=== PATIENT | female | born 1935 | race Caucasian/White ===

== ENCOUNTER → 2018-01-24 09:18 | Outpatient (CLI) | payer MEDICARE, OTHER, SELFPAY ==
--- NOTE | 2018-01-24 09:25 | RAD_ITS ---
PROCEDURE: Fluoroscopic guided right shoulder Injection DATE: January 24, 2018. INDICATION: Female, 82 years old. Chronic right shoulder pain. PHYSICIAN: César Lovelace M.D. MEDICATIONS: 12 mg of betamethasone and 4 cc of 1% lidocaine. 2% Lidocaine administered subcutaneously for local anesthesia. ACCESS SITE: Right shoulder. NEEDLE: 22-gauge spinal needle. FLUOROSCOPY TIME (if supplied): (33 seconds) minutes/seconds FINDINGS: The risks, benefits, and alternatives to the procedure were explained to the patient. The specific risks of bleeding, infection, and neurovascular injury were detailed and accepted. Witnessed informed consent was obtained. A 22-gauge spinal needle was positioned under radiographic fluoroscopic localization. Approximately 2 cc of Isovue-300 instilled for localization purposes. Medication was then injected. The patient tolerated the procedure well without any immediate complications. The patient was placed supine with head elevated and returned to the floor in stable condition. RAD/Inj/Asp Rohit Jt Should/Hip/Knee IMPRESSION: 1. Successful fluoroscopic guided right shoulder injection. Electronically Signed: César Lovelace MD at 10:45 EST Tel [phone], Service support ,
== END ==
PROVIDERS: Visit Provider Specialist
DX: M19.011 Primary osteoarthritis, right shoulder (principal)
CPT/HCPCS: 20610; 77002; Q9965; J0702

== ENCOUNTER → 2018-01-31 08:47 | Outpatient (CLI) | payer MEDICARE, OTHER, SELFPAY ==
--- NOTE | 2018-01-31 08:49 | NM_ITS ---
CLINICAL: 82-year-old female with reported history of colorectal carcinoma with complaint of back pain.. WHOLE BODY 99m Tc MDP RADIONUCLIDE BONE SCINTIGRAPHY COMPARISON: MRI of the thoracic and lumbar spine reports 12/20/2017 FINDINGS: Following the intravenous administration of 25.3 mCi of 99m Tc MDP, whole body bone images reveal: 1. Increased radiopharmaceutical concentration is identified in the sixth-seventh thoracic vertebra posteriorly on the left, eighth-10th thoracic vertebra posteriorly on the left and right, the right sacroiliac joint-right posterior ilium, the left sacral ala, left posterior lateral sixth rib. 2. Enhanced tracer concentration is demonstrated in the right proximal humeral metaphysis. 3. Facilitated uptake is noted in the acromioclavicular and sternoclavicular compartments of both shoulders, lateral glenohumeral compartment of the left shoulder, right midfoot, left hand, the right wrist, second lumbar vertebra posteriorly on the right, fifth lumbar vertebra posteriorly on the left, posterior sacrum. 4. The remaining skeletal structures are scintigraphically unremarkable with normal-appearing renal images and urinary bladder activity identified. An increase in tracer concentration is demonstrated in the right zygomatic bone. The right hip and left knee arthroplasties demonstrate no evidence of significant increased radiopharmaceutical concentration. NM/Bone Scan Whole Body IMPRESSION: 1. The increase in radiopharmaceutical concentration identified in the thoracic spine, right sacroiliac joint, right posterior ilium, left sacral ala, left posterior lateral sixth rib likely represent probable osseous metastatic disease. 2. Increased uptake visualized in the right proximal humeral metaphysis is consistent with trauma-fracture. 3. Degenerative arthritis appears expressed in the bilateral shoulders, right midfoot, left hand, right wrist, second and fifth lumbar vertebra, the posterior sacrum. Electronically Signed: Jose Dominguez DO at 13:16 EST Tel , Service support ,
== END ==
PROVIDERS: Visit Provider Orthopaedic Surgery Orthopaedic Surgery of the Spine
DX: M54.6 Pain in thoracic spine (principal); S22.069A Unspecified fracture of T7-T8 vertebra, initial encounter for closed fracture; M54.9 Dorsalgia, unspecified; G89.29 Other chronic pain; M48.50XA Collapsed vertebra, not elsewhere classified, site unspecified, initial encounter for fracture; Z79.82 Long term (current) use of aspirin; Z79.891 Long term (current) use of opiate analgesic; Z79.899 Other long term (current) drug therapy
CPT/HCPCS: 78306

== ENCOUNTER 2018-02-01 16:16 | Emergency (ER) | payer MEDICARE, OTHER, SELFPAY ==
[2018-02-01 16:19] VITALS: BP 164/80; PULSE 94; RESP 16; TEMP 37.4; O2SAT 91; BMI 31.1
--- NOTE | 2018-02-01 16:35 | ED.DCSUM_ITS ---
- ER Visit Summary Date of Service: 02/01/18 Chief Complaint: [] Back pain History of Present Illness: The patient is a 82 F [] complaining of acute on chronic back pain. Patient reportedly has several compression fractures in her back that she scheduled to have surgery for an Miguel next week. She reports the pain is unbearable at this time. She reports she has tramadol at home for pain but this is not working at this time. She denies any new injuries. She denies numbness or weakness in lower extremities. She denies saddle anesthesia. She reports pain was so bad prior to arrival that she vomited one time. Physical Examination: [] Afebrile, vital signs stable. Elderly female in no acute distress. Cardiovascular exam is regular rate and rhythm. Lungs are clear to auscultation. Abdomen is soft and nontender. Test Results: [] None. Emergency Department Course and Treatment: [] Patient provided intravenous Dilaudid and Phenergan for symptom relief. On serial examination she had improvement of symptoms. Treatment Plan: [] Patient will be discharged to follow-up with primary care physician and provided with a prescription for Percocet. Disposition: [] Discharge, stable. Impression: [] Acute on chronic back pain History of compression fractures This note was generated with [employer] dictation software. It may contain incorrect words, spelling, and punctuation that were not noted in review of the chart prior to signing ED Disposition - Plan for ED Patient: Chief Complaint: Back Referrals: Jon Quiroz [Primary Care Provider] -
[2018-02-01] MEDS: HYDROmorphone 1 MG/ML Syringe IV (16:36)
--- NOTE | 2018-02-01 17:55 | ED.DEP ---
ED Disposition - Plan for ED Patient: Disposition: Home or Assisted Living Chief Complaint: Back Instructions: Back Fracture (Compression Fracture) Prescriptions: Oxycodone HCl/Acetaminophen [Percocet 5/325] 1 tab PO Q4H PRN PRN #22 tab PRN Reason: Pain Referrals: Jon Quiroz [Primary Care Provider] -
[2018-02-01 18:17] VITALS: BP 121/59; PULSE 77; RESP 16; O2SAT 98
[2018-02-01 19:06] VITALS: BP 122/46; PULSE 87; RESP 16; O2SAT 94
== END 2018-02-01 19:07 | disposition home or self-care (01) ==
PROVIDERS: Emergency Provider Emergency Medicine
DX: M54.9 Dorsalgia, unspecified (principal); G89.29 Other chronic pain; M48.50XA Collapsed vertebra, not elsewhere classified, site unspecified, initial encounter for fracture
CPT/HCPCS: 96374; 96375; 99285; A4216

== ENCOUNTER 2018-02-02 16:35 | Inpatient (IN) | payer MEDICARE, OTHER, SELFPAY ==
[2018-02-02] VITALS (10 sets, daily range): BP systolic 131–178; BP diastolic 38–72; PULSE 74–93; RESP 14–18; TEMP 37.2–37.7; O2SAT 92–97; BMI 27.0; BMI 27.1
--- NOTE | 2018-02-02 16:48 | ED.DCSUM_ITS ---
- ER Visit Summary Date of Service: 02/02/18 Chief Complaint: Back pain History of Present Illness: The patient is a 82 F he returns today with back pain. She was seen here yesterday and was given Dilaudid and Phenergan and was discharged with Percocet. She returns because her pain is not controlled at home. She has had 2 months of this back pain ever since the compression fracture was diagnosed in December. She has had MRIs and bone scans. She is scheduled on Saturday for interventional radiology to inject cemented into her compression fracture area. Denies any numbness or tingling in her legs. Denies any weakness. Physical Examination: Vital signs are reviewed. HEENT exam unremarkable. Heart is regular rate and rhythm. Lungs are clear to auscultation. Abdomen soft nontender. Back is tender diffusely in the thoracic area. Neurologic exam normal Test Results: Laboratory studies unremarkable except for a white blood cell count of 13.1 and creatinine 1.1. Emergency Department Course and Treatment: Patient was treated with IV Dilaudid and fentanyl. Treatment Plan: I reviewed the patient's bone scan from a couple of days ago. There is concern for multiple metastases in the ribs and thoracic spine area. Patient denies any active cancer at this time. Discussed the case with the hospitalist for admission. She requested Solu-Medrol be given Disposition: Admission Impression: Acute on chronic back pain, thoracic compression fracture This note was generated with [employer] dictation software. It may contain incorrect words, spelling, and punctuation that were not noted in review of the chart prior to signing ED Disposition - Plan for ED Patient: Chief Complaint: Back Referrals: Jon Quiroz [Primary Care Provider] -
[2018-02-02] MEDS: HYDROmorphone 1 MG/ML Syringe IV (17:02)
[2018-02-02 17:22] LABS: Absolute Lymphocyte Count 0.96 X10^3/ul (0.83-4.51); Absolute Neutrophil Count 10.9 X10^3/uL (2.0-7.7); Basophil# 0.01 X10^3/uL; Basophil% 0.1 % (0-1); Eosinophil# 0.01 X10^3/uL; Eosinophils% 0.1 % (0-5); Hematocrit 36.3 % (37-47); Hemoglobin 11.9 g/dl (12.0-15.0); Lymphocyte # 0.96 X10^3/ul (4.0); Lymphocyte % 7.3 % (19-41); Mean Corp Hgb Conc 32.8 g/gl (32-36); Mean Corpuscular Volume 97.6 fL (81-99); Mean Platelet Vol. 9.4 fl (6.2-12.0); Monocyte# 1.21 X10^3/uL; Monocyte% 9.3 % (0-10); Neutrophil # 10.85 X10^3/uL (2.7-7.7); Platelet Count 133 K/mm3 (150-450); RBC Distribution Width CV 14.2 % (11.6-14.6); RBC Distribution Width SD 51.1 fl (35.1-43.9); Red Blood Count 3.72 M/mm3 (4.2-5.4); White Blood Count 13.1 K/mm3 (4.4-11.0)
[2018-02-02 17:25] LABS: POSITIVE COUNT NO; POSITIVE DIFFERENTIAL NO; POSITIVE MORPHOLOGY NO
[2018-02-02 17:43] LABS: Anion Gap 11 (5-15); BUN 20 mg/dL (7-18); BUN/Creat Ratio 18.2 RATIO (10-20); Calcium,Total 8.4 mg/dL (8.5-10.1); Chloride 102 mmol/L (98-107); EST Glomerular Filtration Rate 51 mL/min (>60); Est Glom Filt Rate - Afr Amer 61 mL/min (>60); Estimated Creatinine Clearance 37.83 ml/min; Glucose 81 mg/dL (74-106); Sodium Level 138 mmol/L (136-145)
[2018-02-02] MEDS: MethylPREDNISolone 125 MG/2 ML Vial IV (18:24)
[2018-02-02] MEDS: fentaNYL 100 MCG/2 ML Ampul 50 MCG IV (18:24)
[2018-02-02] MEDS: fentaNYL 100 MCG/2 ML Ampul 25 MCG IV (18:58)
--- NOTE | 2018-02-02 19:48 | PCM.HP.STD ---
Problem List (1) Intractable back pain Status: Acute (2) Pathologic fracture of vertebra Status: Suspected Qualifiers: Pathology associated with fracture: unspecified disease (3) Dehydration Status: Acute (4) Abnormal bone scan of thoracic spine Status: Acute (5) Thrombocytopenia Status: Acute (6) Contusion of right hip and thigh Status: Resolved Qualifiers: (7) Fracture of surgical neck of right humerus Status: Chronic Qualifiers: (8) MRSA bacteremia Status: Resolved (9) MSSA (methicillin susceptible Staphylococcus aureus) infection Status: Resolved (10) Shoulder pain, left Status: Chronic (11) Spinal stenosis Status: Chronic (12) Staphylococcus aureus bacteremia Status: Resolved Comment: etiology unknown (13) Syncope Status: Resolved (14) generalized debility Status: Acute (15) AV block, 1st degree Status: Chronic (16) Benign essential HTN Status: Chronic (17) Chronic pain Status: Chronic (18) Coronary artery disease Status: Chronic Qualifiers: (19) GERD (gastroesophageal reflux disease) Status: Chronic (20) HLD (hyperlipidemia) Status: Chronic Qualifiers: (21) Hypertension Status: Chronic Qualifiers: (22) Hypothyroidism Status: Chronic Qualifiers: (23) Low back pain Status: Chronic Qualifiers: (24) Lumbar spinal stenosis Status: Chronic (25) Osteoarthritis Status: Chronic (26) S/P total knee replacement Status: Chronic Comment: 01/09/16, [facility] left, Dr Poole History of Present Illness Date of Admission: 02/02/18 Chief Complaint: intractable mid back pain The patient is a 82 year old F with a past medical history of lumbar canal stenosis, foraminal stenosis, osteoarthritis, coronary artery disease with history of PTCA/TAMMIE, GERD, hypothyroidism, hypertension, hyperlipidemia, chronic pain syndrome, colon cancer with partial colon resection, osteoporosis and recent acute T8 compression fx in December 2017 who presented to the ED at [facility] on 02/02/18 c/o intractable pain in the mid back. She recently had an epidural in the low back by Dr. Edmond and she denied any pain in her legs and also denied numbness or weakness. She is scheduled for a Kyphoplasty with Dr. Klein this coming Saturday. He ordered a bone scan which was done on 01/31/18 and it showed increased radiopharmaceutical concentration in the thoracic spine, right sacroiliac joint, right posterior ilium, left sacral ala, left posterior lateral sixth rib which likely represent osseous metastatic disease. There was increased uptake in the right proximal humerus consistent with recent fracture. There was increased uptake in the bilateral shoulders, right midfoot, left hand, right wrist second and fifth lumbar vertebrae and the posterior sacrum likely secondary to degenerative arthritis. Was seen in the emergency room on 02/01/2018 and treated with Dilaudid and Phenergan with good improvement in her symptoms. She was sent home with prescription for Percocet. The pain is not relieved with Percocet and she has severe pain with any movement. She was given 1 mg of Dilaudid in the ER and it helped minimally. She has since received Fentanyl 50 mcg followed quickly by 25 mcg and she is a little more comfortable. She has a temp in the ER of 99.8 and the WBC count is 13.1 with 83% neutrophils. The hemoglobin is 11.9 and the platelet count is mildly decreased at 133,000. There is no obvious source of infection. She has had MSSA bacteremia in the past and the source was never identified. Will send 2 blood cultures but defer antibiotics for now. she is being admitted to the hospital with intractable back pain and will be started on a Fentanyl [employer]RI[employer]ION CENTER ASSOCIATE. Past Medical History Past Medical History (Chronic Problems): Chronic Problems Fracture of surgical neck of right humerus (Chronic) Benign essential HTN (Chronic) HLD (hyperlipidemia) (Chronic) Hypothyroidism (Chronic) S/P total knee replacement (Chronic) 01/09/16, [facility] left, Dr Poole AV block, 1st degree (Chronic) Shoulder pain, left (Chronic) Chronic pain (Chronic) Spinal stenosis (Chronic) Osteoarthritis (Chronic) Coronary artery disease (Chronic) Low back pain (Chronic) Hypertension (Chronic) GERD (gastroesophageal reflux disease) (Chronic) Lumbar spinal stenosis (Chronic) Allergies No Known Allergies Allergy (Verified 02/01/18 16:18) Home Medications: Ambulatory Orders Medication Instructions Recorded Atorvastatin Calcium [Lipitor] 40 mg PO QHS 12/19/13 Cholecalciferol (Vitamin D3) 5,000 units PO DAILY 12/19/13 [Vitamin D3] Isosorbide Mononitrate [Imdur] 30 mg PO DAILY 12/19/13 Levothyroxine [Synthroid] 75 mcg PO DAILY 12/19/13 Metoprolol Tartrate [Lopressor 25 mg PO BID #60 tablet 01/20/16 (beta rafael)] Aspirin 81 mg PO DAILY 03/07/17 Oxycodone HCl/Acetaminophen 1 tab PO Q4H PRN PRN #22 tab 02/01/18 [Percocet 5/325] TraMADol [Ultram (G)] 50 mg PO Q6H PRN PRN 02/01/18 Calcium Carbonate [Calcium] 1,200 mg PO DAILY 02/02/18 Surgical History: cholecystectomy, colectomy - Colon cancer., hysterectomy, total hip arthroplasty - Right., total knee arthroplasty - Left., - - Cardiac stent. Psychiatric History: No pertinent psych hx DIRECT MAIL CLERK History: No pertinent DIRECT MAIL CLERK history, - - she had a ANGÉLICA/BSO for DUB in the past Lives: Alone Smoking Status: Never smoker Tobacco Use: Non-smoker Alcohol: None Drugs: None - *Family History Maternal History Items: No pertinent history Paternal History Items: No pertinent history, - Review of Systems Constitutional: Reports: Anorexia, - - insomnia due to severe pain. Denies: Chills, Fever HEENT: Denies: Difficulty Hearing, Difficulty Swallowing, Head Aches, Sinus Congestion, Sinus Drainage, Sore Throat Cardiovascular: Denies: Chest Pain, Edema, Light Headedness, Orthopnea, Palpitations, Syncope Respiratory: Denies: Cough, Shortness of breath at rest, Sputum production Gastrointestinal: Reports: Nausea. Denies: Abdominal Pain, Vomiting Genitourinary: Denies: Dysuria Gynecological: Denies: Vaginal discharge Musculoskeletal: Reports: Back Pain. Denies: Joint swelling, Leg Pain Skin: Denies: Jaundice, Rash, Wounds Neurological: Denies: Slurred speech, Confusion, Focal weakness, Numbness, Tingling, Seizures Psychiatric: Denies: Anxiety, Depression, Homicidal Ideations, Suicidal Ideations Endocrine: Denies: Change in Body Habitus, Heat/ Cold Intolerance, Hx of Irradiation Hematologic/ Lymphatic: Denies: Hx of blood clot VTE Information - Inpt Only VTE Present on Admission: No VTE Mechan Device Prophylaxis: SCD's, Knee High WIL Hose VTE Pharm Prophylaxis ordered?: No Reason prophylaxis not ordered:: Refusal of Tx by Patient - held in anticipation of vertebral bone bx with possible kyphoplasty 02/03 Patient Problems: Active and Suspected Problems Intractable back pain (Acute) Pathologic fracture of vertebra (Suspected) Dehydration (Acute) Abnormal bone scan of thoracic spine (Acute) Thrombocytopenia (Acute) - Physical Exam General: Alert, Oriented x3, Cooperative, - - she looks to be in severe pain and it is exacerbated with any movement HEENT: Atraumatic, PERRLA, EOMI, Normocephalic Oral: No Gingival or Mucosal Lesions/ Ulcerations, Dry Mucosa Neck: No JVD, No Nodes, Trachea Midline Lungs: Clear to auscultation Cardiovascular: Regular rate, Regular Rhythm, Normal S1, Normal S2, Murmur - at the apex, No Gallop Abdomen: Bowel Sounds Present, Soft, Non Tender, Non-Distended Extremities: No clubbing, No cyanosis, No edema, No Calf Tenderness Skin: No rashes, No breakdown Neurological: Cranial nerves II-XII grossly intact, - - patellar reflexes are normal and I could not elicit any achilles reflexes. Psych/Mental Status: Appropriate Vital Signs Temp Pulse Resp BP Pulse Ox 99.8 F H 91 18 178/62 H 96 02/02/18 16:36 02/02/18 18:38 02/02/18 18:38 02/02/18 18:38 02/02/18 18:38 Oxygen Delivery Method Room Air Weight: 134 lb Body Mass Index (BMI) 27.0 Laboratory Tests Past 24 Hrs 02/02/18 02/02/18 17:06 17:06 WBC 13.1 H RBC 3.72 L Hgb 11.9 L Hct 36.3 L MCV 97.6 MCH 32.0 MCHC 32.8 RDW 14.2 RDW Differential 51.1 H Plt Count 133 L MPV 9.4 Immature Gran % (Auto) 0.200 Neut % (Auto) 83.0 H Lymph % (Auto) 7.3 L [place] % (Auto) 9.3 Eos % (Auto) 0.1 Baso % (Auto) 0.1 Absolute Neuts (auto) 10.9 H Absolute Lymphs (auto) 0.96 Total Counted Not Reportable Sodium 138 Potassium 4.0 Chloride 102 Carbon Dioxide 25.0 Anion Gap 11 BUN 20 H Creatinine 1.10 H Estim Creat Clear Calc 37.83 Est GFR (MDRD) Af Amer 61 Est GFR (MDRD) Non-Af 51 L BUN/Creatinine Ratio 18.2 Glucose 81 Calcium 8.4 L Assessment/Plan Active and Suspected Problems Intractable back pain (Acute) Pathologic fracture of vertebra (Suspected) Dehydration (Acute) Abnormal bone scan of thoracic spine (Acute) Thrombocytopenia (Acute) Impressions 1. Intractable back pain due to T8 vertebral compression fracture which I suspect is due to metastatic cancer. The recent bone scan on 01/31 is consistent with multiple areas of increased radiopharmaceutical uptake which appear to be metastatic disease 2. Vertebral compression fx at T8 3. Osteoporosis not on a bisphosphonate or Miacalcin or Evista. She is on Vitamin D and calcium 4. Lumbar central canal stenosis and multilevel foraminal stenosis in the thoracic and the lumbar spine 5. Chronic pain S. - follow with Dr. Edmond 6. OA 7. CAD with a hx of PTCA and stent in the past 8. HTN 9. GERD 10. thrombocytopenia - new, etiology? 11. low grade fever with no obvious infection 12. First-degree AV block 13. Hyperlipidemia 14. Hypothyroidism 15. dehydration Admit to [place] consult Dr. Seay for a bone bx of T8 Geena Swenson requested repeat of MRI of the thoracic and Lumbar spines in the AM Consult Dr. Edmond for pain management Start a Fentanyl [employer]RI[employer] C[employer] ASSOCIATE LR at 100 cc/hr to hydrate Liver panel, PT, PTT, ESR and CRP, mag and phos now NPO after [place] TEDS and SCD's for DVT prophylaxis....hold Lovenox for anticipated surgical procedure tomorrow blood cultures now Discussed the results of the bone scan with her dtr Joelle but not with the pt at her dtr's request. Code Visit Inpatient E&M: 16599 Init Hosp L3
--- NOTE | 2018-02-02 19:58 | HP.PCM_ITS ---
Problem List (1) Intractable back pain Status: Acute (2) Pathologic fracture of vertebra Status: Suspected Qualifiers: Pathology associated with fracture: unspecified disease (3) Dehydration Status: Acute (4) Abnormal bone scan of thoracic spine Status: Acute (5) Thrombocytopenia Status: Acute (6) Contusion of right hip and thigh Status: Resolved Qualifiers: (7) Fracture of surgical neck of right humerus Status: Chronic Qualifiers: (8) MRSA bacteremia Status: Resolved (9) MSSA (methicillin susceptible Staphylococcus aureus) infection Status: Resolved (10) Shoulder pain, left Status: Chronic (11) Spinal stenosis Status: Chronic (12) Staphylococcus aureus bacteremia Status: Resolved Comment: etiology unknown (13) Syncope Status: Resolved (14) generalized debility Status: Acute (15) AV block, 1st degree Status: Chronic (16) Benign essential HTN Status: Chronic (17) Chronic pain Status: Chronic (18) Coronary artery disease Status: Chronic Qualifiers: (19) GERD (gastroesophageal reflux disease) Status: Chronic (20) HLD (hyperlipidemia) Status: Chronic Qualifiers: (21) Hypertension Status: Chronic Qualifiers: (22) Hypothyroidism Status: Chronic Qualifiers: (23) Low back pain Status: Chronic Qualifiers: (24) Lumbar spinal stenosis Status: Chronic (25) Osteoarthritis Status: Chronic (26) S/P total knee replacement Status: Chronic Comment: 01/09/16, [facility] left, Dr Poole History of Present Illness Date of Admission: 02/02/18 Chief Complaint: intractable mid back pain The patient is a 82 year old F with a past medical history of lumbar canal stenosis, foraminal stenosis, osteoarthritis, coronary artery disease with history of PTCA/TAMMIE, GERD, hypothyroidism, hypertension, hyperlipidemia, chronic pain syndrome, colon cancer with partial colon resection, osteoporosis and recent acute T8 compression fx in December 2017 who presented to the ED at [facility] on 02/02/18 c/o intractable pain in the mid back. She recently had an epidural in the low back by Dr. Edmond and she denied any pain in her legs and also denied numbness or weakness. She is scheduled for a Kyphoplasty with Dr. Klein this coming Saturday. He ordered a bone scan which was done on 01/31/18 and it showed increased radiopharmaceutical concentration in the thoracic spine , right sacroiliac joint, right posterior ilium, left sacral ala, left posterior lateral sixth rib which likely represent osseous metastatic disease. There was increased uptake in the right proximal humerus consistent with recent fracture. There was increased uptake in the bilateral shoulders, right midfoot , left hand, right wrist second and fifth lumbar vertebrae and the posterior sacrum likely secondary to degenerative arthritis. Was seen in the emergency room on 02/01/2018 and treated with Dilaudid and Phenergan with good improvement in her symptoms. She was sent home with prescription for Percocet. The pain is not relieved with Percocet and she has severe pain with any movement. She was given 1 mg of Dilaudid in the ER and it helped minimally. She has since received Fentanyl 50 mcg followed quickly by 25 mcg and she is a little more comfortable. She has a temp in the ER of 99.8 and the WBC count is 13.1 with 83 % neutrophils. The hemoglobin is 11.9 and the platelet count is mildly decreased at 133,000. There is no obvious source of infection. She has had MSSA bacteremia in the past and the source was never identified. Will send 2 blood cultures but defer antibiotics for now. she is being admitted to the hospital with intractable back pain and will be started on a Fentanyl GREEN LUMBER GRADER. Past Medical History Past Medical History (Chronic Problems): Chronic Problems Fracture of surgical neck of right humerus (Chronic) Benign essential HTN (Chronic) HLD (hyperlipidemia) (Chronic) Hypothyroidism (Chronic) S/P total knee replacement (Chronic) 01/09/16, [facility] left, Dr Poole AV block, 1st degree (Chronic) Shoulder pain, left (Chronic) Chronic pain (Chronic) Spinal stenosis (Chronic) Osteoarthritis (Chronic) Coronary artery disease (Chronic) Low back pain (Chronic) Hypertension (Chronic) GERD (gastroesophageal reflux disease) (Chronic) Lumbar spinal stenosis (Chronic) Allergies No Known Allergies Allergy (Verified 02/01/18 16:18) Home Medications: Ambulatory Orders Medication Instructions Recorded Atorvastatin Calcium [Lipitor] 40 mg PO QHS 12/19/13 Cholecalciferol (Vitamin D3) 5,000 units PO DAILY 12/19/13 [Vitamin D3] Isosorbide Mononitrate [Imdur] 30 mg PO DAILY 12/19/13 Levothyroxine [Synthroid] 75 mcg PO DAILY 12/19/13 Metoprolol Tartrate [Lopressor 25 mg PO BID #60 tablet 01/20/16 (beta rafael)] Aspirin 81 mg PO DAILY 03/07/17 Oxycodone HCl/Acetaminophen 1 tab PO Q4H PRN PRN #22 tab 02/01/18 [Percocet 5/325] TraMADol [Ultram (G)] 50 mg PO Q6H PRN PRN 02/01/18 Calcium Carbonate [Calcium] 1,200 mg PO DAILY 02/02/18 Surgical History: cholecystectomy, colectomy - Colon cancer., hysterectomy, total hip arthroplasty - Right., total knee arthroplasty - Left., - - Cardiac stent. Psychiatric History: No pertinent psych hx MACHINE OR MACHINERY MECHANIC History: No pertinent MACHINE OR MACHINERY MECHANIC history, - - she had a ANGÉLICA/BSO for DUB in the past Lives: Alone Smoking Status: Never smoker Tobacco Use: Non-smoker Alcohol: None Drugs: None - *Family History Maternal History Items: No pertinent history Paternal History Items: No pertinent history, - Review of Systems Constitutional: Reports: Anorexia, - - insomnia due to severe pain. Denies: Chills, Fever HEENT: Denies: Difficulty Hearing, Difficulty Swallowing, Head Aches, Sinus Congestion, Sinus Drainage, Sore Throat Cardiovascular: Denies: Chest Pain, Edema, Light Headedness, Orthopnea, Palpitations, Syncope Respiratory: Denies: Cough, Shortness of breath at rest, Sputum production Gastrointestinal: Reports: Nausea. Denies: Abdominal Pain, Vomiting Genitourinary: Denies: Dysuria Gynecological: Denies: Vaginal discharge Musculoskeletal: Reports: Back Pain. Denies: Joint swelling, Leg Pain Skin: Denies: Jaundice, Rash, Wounds Neurological: Denies: Slurred speech, Confusion, Focal weakness, Numbness, Tingling, Seizures Psychiatric: Denies: Anxiety, Depression, Homicidal Ideations, Suicidal Ideations Endocrine: Denies: Change in Body Habitus, Heat/ Cold Intolerance, Hx of Irradiation Hematologic/ Lymphatic: Denies: Hx of blood clot VTE Information - Inpt Only VTE Present on Admission: No VTE Mechan Device Prophylaxis: SCD's, Knee High WIL Hose VTE Pharm Prophylaxis ordered?: No Reason prophylaxis not ordered:: Refusal of Tx by Patient - held in anticipation of vertebral bone bx with possible kyphoplasty 02/03 Patient Problems: Active and Suspected Problems Intractable back pain (Acute) Pathologic fracture of vertebra (Suspected) Dehydration (Acute) Abnormal bone scan of thoracic spine (Acute) Thrombocytopenia (Acute) - Physical Exam General: Alert, Oriented x3, Cooperative, - - she looks to be in severe pain and it is exacerbated with any movement HEENT: Atraumatic, PERRLA, EOMI, Normocephalic Oral: No Gingival or Mucosal Lesions/ Ulcerations, Dry Mucosa Neck: No JVD, No Nodes, Trachea Midline Lungs: Clear to auscultation Cardiovascular: Regular rate, Regular Rhythm, Normal S1, Normal S2, Murmur - at the apex, No Gallop Abdomen: Bowel Sounds Present, Soft, Non Tender, Non-Distended Extremities: No clubbing, No cyanosis, No edema, No Calf Tenderness Skin: No rashes, No breakdown Neurological: Cranial nerves II-XII grossly intact, - - patellar reflexes are normal and I could not elicit any achilles reflexes. Psych/Mental Status: Appropriate Vital Signs Temp Pulse Resp BP Pulse Ox 99.8 F H 91 18 178/62 H 96 02/02/18 16:36 02/02/18 18:38 02/02/18 18:38 02/02/18 18:38 02/02/18 18:38 Oxygen Delivery Method Room Air Weight: 134 lb Body Mass Index (BMI) 27.0 Laboratory Tests Past 24 Hrs 02/02/18 02/02/18 17:06 17:06 WBC 13.1 H RBC 3.72 L Hgb 11.9 L Hct 36.3 L MCV 97.6 MCH 32.0 MCHC 32.8 RDW 14.2 RDW Differential 51.1 H Plt Count 133 L MPV 9.4 Immature Gran % (Auto) 0.200 Neut % (Auto) 83.0 H Lymph % (Auto) 7.3 L [place] % (Auto) 9.3 Eos % (Auto) 0.1 Baso % (Auto) 0.1 Absolute Neuts (auto) 10.9 H Absolute Lymphs (auto) 0.96 Total Counted Not Reportable Sodium 138 Potassium 4.0 Chloride 102 Carbon Dioxide 25.0 Anion Gap 11 BUN 20 H Creatinine 1.10 H Estim Creat Clear Calc 37.83 Est GFR (MDRD) Af Amer 61 Est GFR (MDRD) Non-Af 51 L BUN/Creatinine Ratio 18.2 Glucose 81 Calcium 8.4 L Assessment/Plan Active and Suspected Problems Intractable back pain (Acute) Pathologic fracture of vertebra (Suspected) Dehydration (Acute) Abnormal bone scan of thoracic spine (Acute) Thrombocytopenia (Acute) Impressions 1. Intractable back pain due to T8 vertebral compression fracture which I suspect is due to metastatic cancer. The recent bone scan on 01/31 is consistent with multiple areas of increased radiopharmaceutical uptake which appear to be metastatic disease 2. Vertebral compression fx at T8 3. Osteoporosis not on a bisphosphonate or Miacalcin or Evista. She is on Vitamin D and calcium 4. Lumbar central canal stenosis and multilevel foraminal stenosis in the thoracic and the lumbar spine 5. Chronic pain S. - follow with Dr. Edmond 6. OA 7. CAD with a hx of PTCA and stent in the past 8. HTN 9. GERD 10. thrombocytopenia - new, etiology? 11. low grade fever with no obvious infection 12. First-degree AV block 13. Hyperlipidemia 14. Hypothyroidism 15. dehydration Admit to [place] consult Dr. Seay for a bone bx of T8 Geena Swenson requested repeat of MRI of the thoracic and Lumbar spines in the AM Consult Dr. Edmond for pain management Start a Fentanyl GREEN LUMBER GRADER LR at 100 cc/hr to hydrate Liver panel, PT, PTT, ESR and CRP, mag and phos now NPO after [place] TEDS and SCD's for DVT prophylaxis....hold Lovenox for anticipated surgical procedure tomorrow blood cultures now Discussed the results of the bone scan with her dtr Joelle but not with the pt at her dtr's request. Code Visit Inpatient E&M: 37525 Init Hosp L3
[2018-02-02 20:42] LABS: Erythrocyte Sedimentation Rate 48 mm/hr (0-30)
[2018-02-02 20:53] LABS: AST(SGOT) 41 U/L (15-37); Alanine Aminotransfer ALT/SGPT 34 U/L (13-56); Albumin, Serum 2.6 g/dL (3.2-5.0); Alkaline Phosphatase 140 U/L (45-117); Bilirubin, Direct 0.34 mg/dL (0.00-0.30); Globulin 3.8 g/dL (2.2-4.2); Magnesium 1.9 mg/dL (1.6-2.6); Protein, Total 6.4 g/dL (6.4-8.2)
[2018-02-02 21:01] LABS: International Normalized Ratio 1.1; Prothrombin Time (Protime)PT. 13.7 SECONDS (11.7-14.9)
[2018-02-02 21:02] LABS: Partial Thromboplast Time 39.1 Seconds (24.1-36.2)
[2018-02-02] MEDS: Lactated Ringers 1,000 ML 100 ML IV (21:25)
[2018-02-02] MEDS: 0.9% NaCl Peripheral Flush Adult/Peds IV (21:32)
[2018-02-02] MEDS: Atorvastatin Calcium 40 MG Tablet PO (21:54)
[2018-02-02] MEDS: Metoprolol Tartrate 25 MG Tablet PO (21:54)
[2018-02-03] VITALS (19 sets, daily range): BP systolic 107–160; BP diastolic 44–77; PULSE 63–90; RESP 16; TEMP 36.5–37.4; O2SAT 2–99
[2018-02-03 00:02] LABS: Bacteria 0 SEEN /hpf (None Seen); Mucous, Urine 0 SEEN /hpf (<or=2+)
[2018-02-03 00:20] LABS: Color, Urine Yellow (Yellow); Glucose, Dipstick Normal (Normal); Leukocyte Esterase-Dipstick Negative /ul (Negative); Nitrite-Dipstick Negative (Negative); Occult Blood-Urine 150 /ul (Negative); Protein-Dipstick 100 mg/dl (Negative); Specific Gravity, Urine 1.025 (1.002-1.030); Urine Bilirubin Dipstick Negative (Negative); Urine Clarity Sl. Cloudy (Clear); Urine Urobilinogen 1 mg/dl (Normal)
[2018-02-03 00:27] LABS: Amorphous Sediment 3+; Coarse Granular Cast 5-10 SEEN /lpf (0-5 /lpf); Red Blood Cells-Urine 0-5 SEEN /hpf (0-5); Squamous Epithelial Cells - UA 5-10 SEEN /hpf (5-10); White Blood Cells 0-5 SEEN /hpf (0-5)
[2018-02-03 00:28] LABS: Ketone-Dipstick 150 mg/dl (Negative)
--- NOTE | 2018-02-03 03:41 | ECHOD_ITS ---
Reason For Study: HTN Procedure This was a 2D Doppler, Color Flow transthoracic echocardiogram. Exam performed portable in patient room. Left Ventricle Normal size and thickness. The estimated ejection fraction is 65 %. Stage 1 diastolic dysfunction. No regional wall motion abnormalities noted. Right Ventricle Normal size and thickness. Normal systolic function. Atria Normal left atrium. Normal right atrium. Normal atrial septum. Mitral Valve The mitral valve is structurally normal. No prolapse or stenosis seen. Trivial mitral valve insufficiency. Tricuspid Valve Normal tricuspid valve. Trivial tricuspid valve insufficiency. Right ventricular systolic pressure estimated to be 37 mmHg. Mild pulmonary hypertension. Aortic Valve Trisinus/trileaflet aortic valve. Mild diffuse aortic valve thickening. Pulmonic Valve Normal pulmonic valve. Great Vessels Normal aortic root. Normal arch. Normal inferior vena cava. Inferior vena cava collapse with sniff. Pericardium/Pleural No pericardial effusion. MMode/2D Measurements & Calculations LVIDd: 3.8 cm IVSd: 0.83 cm Ao root diam: 3.7 cm LVIDs: 2.8 cm LVPWd: 0.82 cm LA dimension: 3.1 cm RVDd: 3.6 cm FS: 24.9 % LAV(MOD-bp): 33.7 ml EDV(MOD-sp4): 86.2 ml EDV(MOD-sp2): 73.6 ml LAV(MOD-bp) Indexed: 21.8 ml/m2 ESV(MOD-sp4): 38.5 ml EF(MOD-sp2): 46.9 % LAV(MOD-sp2): 31.9 ml EF(MOD-sp4): 55.3 % LAV(MOD-sp4): 34.8 ml SV(MOD-sp4): 47.7 ml SV(MOD-sp2): 34.6 ml LA A4 area: 13.9 cm2 RA A4 area: 10.4 cm2 Doppler Measurements & Calculations MV E max annabelle: 74.8 cm/sec Ao V2 max: 105.5 cm/sec LV V1 max: 94.6 cm/sec MV A max annabelle: 96.3 cm/sec Ao max P.5 mmHg LV V1 max P.6 mmHg MV E/A: 0.78 TR max annabelle: 276.2 cm/sec TR max P.5 mmHg Interpretation Summary The estimated ejection fraction is 65 %. Stage 1 diastolic dysfunction. Right ventricular systolic pressure estimated to be 37 mmHg. Mild pulmonary hypertension. Compared to echo report dated 03/29/2017, no appreciable changes noted. Ordering Physician: Juan Pablo Burnett Referring Physician: TAMMY LEMUS Performed By: Luanne Arroyo, ALLISON, RVT
[2018-02-03] MEDS: 0.9% NaCl IVPB Med Flush (250 mL) 15 ML IV ×2 (04:06→04:08)
[2018-02-03] MEDS: 0.9% NaCl Peripheral Flush Adult/Peds IV ×3 (04:06→14:46)
[2018-02-03] MEDS: Piperacil/Tazobactam 3.375 GM/50 ML ML IV (04:17)
[2018-02-03] MEDS: Levothyroxine 75 MCG Tablet PO (05:45)
--- NOTE | 2018-02-03 06:59 | MRI_ITS ---
STUDY: MRI THORACIC SPINE WITHOUT CONTRAST REASON FOR EXAM: Female, 82 years old. pathologic fx , intractable pain, compression fx, mid back pain. TECHNIQUE: Standardized fat and water weighted pulse sequences were obtained in the sagittal and axial planes. COMPARISON: December 20, 2017 FINDINGS: Normal kyphosis of the thoracic spine. There is no substantial scoliosis. T1-2, T2-3, T3-4, T4-5, T5-6, T6-7, T7-8, T8-9, T9-10, T10-11, T11-12: There is diffuse disc space narrowing and endplate spondylosis. There is now minimal depression deformity at the inferior endplate of T7 with bone marrow edema, consistent with minimal acute fracture. Again noted is a severe compression fracture at T8 with minimal retrodisplacement of the posterior endplate with mild central canal and severe bilateral foraminal stenosis. Findings are stable since the prior examination. Again noted is the hypointense T1 signal involving the posterior T9 vertebral body. Again noted is a bone marrow edema of the transverse and posterior processes at T6, T7, T8 and T9. Again noted is the intraosseous edema at T8/T9, consistent with ligamentous injury.. Normal visualized thoracic cord. MRI/Spine Thoracic (Routine) IMPRESSION: Acute minimal fracture of T7. Stable T8 fracture. T8/T9 posterior interosseous ligamentous injury. Lesions of the transverse and posterior processes, consistent with metastatic disease. Electronically Signed: Elia Damico MD at 10:16 EST Tel , Service support ,
[2018-02-03] MEDS: Lactated Ringers 1,000 ML 100 ML IV (07:10)
[2018-02-03 08:56] LABS: Absolute Lymphocyte Count 0.53 X10^3/ul (0.83-4.51); Absolute Neutrophil Count 12.8 X10^3/uL (2.0-7.7); Basophil# 0.01 X10^3/uL; Basophil% 0.1 % (0-1); Hematocrit 35.1 % (37-47); Hemoglobin 11.6 g/dl (12.0-15.0); Lymphocyte # 0.53 X10^3/ul (4.0); Lymphocyte % 3.8 % (19-41); Mean Corpuscular Hgb 32.1 pg (27.0-32.0); Mean Corpuscular Volume 97.2 fL (81-99); Mean Platelet Vol. 9.7 fl (6.2-12.0); Monocyte# 0.54 X10^3/uL; Monocyte% 3.9 % (0-10); Neutrophil # 12.84 X10^3/uL (2.7-7.7); Neutrophil % 91.9 % (47-70); Platelet Count 147 K/mm3 (150-450); RBC Distribution Width CV 13.2 % (11.6-14.6); RBC Distribution Width SD 45.7 fl (35.1-43.9); Red Blood Count 3.61 M/mm3 (4.2-5.4)
[2018-02-03 08:57] LABS: Differential Indicated SCAN CRITERIA MET; POSITIVE COUNT NO; POSITIVE DIFFERENTIAL YES; POSITIVE MORPHOLOGY NO
[2018-02-03 09:15] LABS: Anion Gap 10 (5-15); BUN 26 mg/dL (7-18); BUN/Creat Ratio 28.1 RATIO (10-20); Calcium,Total 8.3 mg/dL (8.5-10.1); Chloride 102 mmol/L (98-107); Creatinine, Serum 0.92 mg/dL (0.55-1.02); EST Glomerular Filtration Rate 62 mL/min (>60); Est Glom Filt Rate - Afr Amer 75 mL/min (>60); Estimated Creatinine Clearance 45.24 ml/min; Glucose 122 mg/dL (74-106); Potassium 4.4 mmol/L (3.5-5.1); Sodium Level 136 mmol/L (136-145)
--- NOTE | 2018-02-03 09:30 | PN_ITS ---
Patient Problems: Active and Suspected Problems Intractable back pain (Acute) Pathologic fracture of vertebra (Suspected) Dehydration (Acute) Abnormal bone scan of thoracic spine (Acute) Thrombocytopenia (Acute) Subjective: Patient was admitted last night with acute low back pain. Maintained overnight on ACCOUNT ADJUSTER pump. She rates her pain a 7/10 this morning, Dr. Edmond and Dr. Seay having consulted. No acute events overnight. Vitals reviewed, blood pressure remains uncontrolled, likely secondary to pain. Blood cultures are positive for MSSA; been on IV vancomycin and Zosyn. Vitals/I&O's: Vital Signs Temp Pulse Resp BP Pulse Ox 99.3 F H 72 16 154/64 H 94 02/03/18 07:57 02/03/18 07:57 02/03/18 07:57 02/03/18 07:57 02/03/18 07:57 Oxygen Flow Rate 2 Oxygen Delivery Method Nasal Cannula Weight: 60.781 kg Body Mass Index (BMI) 27.0 Intake and Output for Last 24 Hours 02/01/18 02/02/18 02/03/18 23:59 23:59 23:59 Intake Total 319 / 319 994 / 994 Output Total 200 / 200 175 / 175 Balance 119 / 119 819 / 819 General: Alert, Oriented x3, Cooperative, No apparent distress - lying flat in bed HEENT: Atraumatic, PERRLA, EOMI, Normocephalic Oral: Moist Mucosa Neck: Supple Lungs: Clear to auscultation, Normal air movement Cardiovascular: Regular rate, Regular Rhythm, Normal S1, Normal S2, No murmurs Abdomen: Bowel Sounds Present, Soft, Non Tender, Non-Distended, No Hepato- splenomegaly Extremities: No edema Skin: No rashes Musculoskeletal: No Tenderness to Palpation of Joints or Extremities Lymphatic: No Cervical, Supraclavicular, or Inguinal Adenopathy Neurological: Cranial nerves II-XII grossly intact, Neuro grossly intact Psych/Mental Status: Normal Affect, Appropriate Laboratory Results 02/02/18 23:50: Urine Color Yellow, Urine Clarity Sl. Cloudy, Urine pH 5.0, Ur Specific [place] 1.025, Urine Protein 100 H, Urine Glucose (UA) Normal, Urine Ketones 150 H, Urine Occult Blood 150 H, Urine Nitrite Negative, Urine Bilirubin Negative, Urine Urobilinogen 1 H, Ur Leukocyte Esterase Negative, Urine RBC 0-5 SEEN, Urine WBC 0-5 SEEN, Ur Squamous Epith Cells 5-10 SEEN, Amorphous Sediment 3+, Urine Bacteria 0 SEEN, Coarse Granular Casts 5-10 SEEN, Urine Mucus 0 SEEN 02/03/18 08:35: WBC 14.0 H, RBC 3.61 L, Hgb 11.6 L, Hct 35.1 L, MCV 97.2, MCH 32.1 H, MCHC 33.0, RDW 13.2, RDW Differential 45.7 H, Plt Count 147 L, MPV 9.7, Immature Gran % (Auto) 0.300, Neut % (Auto) 91.9 H, Lymph % (Auto) 3.8 L, [place] % (Auto) 3.9, Eos % (Auto) 0.0, Baso % (Auto) 0.1, Absolute Neuts (auto) 12.8 H , Absolute Lymphs (auto) 0.53 L, Total Counted Not Reportable, Differential Comment COMMENT 02/03/18 08:35: Sodium 136, Potassium 4.4, Chloride 102, Carbon Dioxide 24.0, Anion Gap 10, BUN 26 H, Creatinine 0.92, Estim Creat Clear Calc 45.24, Est GFR ( MDRD) Af Amer 75, Est GFR (MDRD) Non-Af 62, BUN/Creatinine Ratio 28.1 H, Glucose 122 H, Calcium 8.3 L Current Medications Aspirin (Aspirin, Baby) 81 mg PO DAILY@0800 [facility] Atorvastatin Calcium (Lipitor) 40 mg PO QHS [facility] Last Admin: 02/02/18 21:54 Dose: 40 mg Calcium Carbonate (Os-Hossein 500) 1,000 mg PO DAILY [facility] Cholecalciferol (Vitamin D) 5,000 unit PO DAILY [facility] Fentanyl () 1,000 mcg IV UD [facility] PRN Reason: Protocol Last Admin: 02/02/18 21:25 Dose: 1,000 mcg Lactated Ringer's () 1,000 mls @ 100 mls/hr IV .Q10H [facility] Last Admin: 02/03/18 07:10 Dose: 100 mls/hr Naloxone HCl 4 mg/ Dextrose 504 mls @ 0 mls/hr IV .Q0M PRN; Protocol; Titrate PRN Reason: To maintain Resp. rate >10 Piperacillin Sod/Tazobactam Sod (Zosyn) 3.375 gm in 50 mls @ 12.5 mls/hr IV Q8 [facility] Last Admin: 02/03/18 04:17 Dose: 12.5 mls/hr Sodium Chloride () 250 mls @ 15 mls/hr IV .[id number] PRN PRN Reason: SALINE FLUSH Last Admin: 02/03/18 04:08 Dose: 15 mls/hr Vancomycin HCl (Vancomycin) 1,000 mg in 200 mls @ 200 mls/hr IV Q48H [facility] Isosorbide Mononitrate (Imdur) 30 mg PO DAILY [facility] Levothyroxine Sodium (Synthroid) 75 mcg PO DAILY@0600 [facility] Last Admin: 02/03/18 05:45 Dose: 75 mcg Magnesium Hydroxide (Milk Of Magnesia) 30 ml PO DAILY PRN PRN PRN Reason: Constipation Metoprolol Tartrate (Lopressor (Beta Edmund)) 25 mg PO BID [facility] Last Admin: 02/02/18 21:54 Dose: 25 mg Naloxone HCl (Narcan) 0.02 mg IV Q1M PRN PRN Reason: RR <10 and pt unresponsive Ondansetron HCl (Zofran) 4 mg IV Q6H PRN PRN PRN Reason: Nausea Only Promethazine HCl (Phenergan (Ll)) 6.25 mg IV Q4H PRN PRN PRN Reason: NAUSEA/VOMITING Sodium Chloride () 5 - 30 ml IV UD PRN PRN Reason: SALINE FLUSH Last Admin: 02/03/18 04:06 Dose: 20 ml Assessment/Plan Active and Suspected Problems Intractable back pain (Acute) Pathologic fracture of vertebra (Suspected) Dehydration (Acute) Abnormal bone scan of thoracic spine (Acute) Thrombocytopenia (Acute) 82 year old F with a past medical history of chronic back pain, h/o recent acute T8 compressive fracture in December 2017, colon cancer with partial colon resection, admitted on 02/02/18 with intractable back pain and managed on ACCOUNT ADJUSTER pump. 1. Acute Intractable back pain secondary to acute T7 fracture, T8 vertebral compression fracture, metastatic bone disease, pain is minimally controlled on ACCOUNT ADJUSTER pump, Dr. Edmond and Dr. Seay consulted. Continue on ACCOUNT ADJUSTER pump until pain management sees patient. 2. MSSA bacteremia, MRSA bacteremia in 2017, was seen here, leukocytosis remains , started on IV vancomycin and Zosyn, will de-escalate to IV Ancef, ID consult 3. Metastatic bone disease, scan showed multiple areas of uptake, Dr. Seay consulted by previous physician for bone biopsy, will follow-up on his recommendations. 4. History of recurrent fractures,osteoporosis, not on bisphosphonate, on vitamin D and calcium. Needs to have treatment in the outpatient. 5. CAD, s/p stent, on aspirin, statin, isosorbide, beta blockers 6. Hypertension, uncontrolled, secondary to pain, continue metoprolol 7. Thrombocytopenia, improved 8. Hypothyroidism, on levothyroxine 9. DVT PPx - SCDs; off Lovenox for possible procedure Code Visit Inpatient E&M: 58336 Subs Hosp L3
--- NOTE | 2018-02-03 09:40 | RAD_ITS ---
STUDY: X-RAY - THORACIC SPINE REASON FOR EXAM: Female, 82 years old. back pain TECHNIQUE: 2 view(s) of the thoracic spine were obtained. COMPARISON: December 20, 2017 MRI. FINDINGS: Normal kyphosis of the thoracic spine. Again noted is a severe compression fracture at T8, grossly unchanged since prior examination. There is multi-level endplate spondylosis. There is multi-level degenerative disc disease with multilevel disc space narrowing. The soft tissue structures are unremarkable. RAD/Thoracic Spine 3 Views IMPRESSION: No demonstrated acute fractures. Stable T8 fracture. Multilevel degenerative changes. Electronically Signed: Elia Damico MD at 10:17 EST Tel , Service support ,
[2018-02-03] MEDS: Calcium (Elemental) 500 MG Tablet 1000 MG PO (10:50)
[2018-02-03] MEDS: Isosorbide Mononitrate 30 MG Tablet PO (10:50)
[2018-02-03] MEDS: Metoprolol Tartrate 25 MG Tablet PO ×2 (10:50→22:43)
[2018-02-03] MEDS: Senna/Docusate Sodium 1 Tablet PO ×2 (10:56→22:43)
[2018-02-03] MEDS: Bisacodyl 5 MG Tablet 10 MG PO (10:56)
--- NOTE | 2018-02-03 11:38 | CON.PCM_ITS ---
Problem List (1) MSSA bacteremia Status: Acute Reason for Consult: (+) bcx Consulted by: Dr. Delgadillo History of Present Illness: The patient is a 82 year old F with h/o severe lumbar stenosis, colon cancer, and MSSA bacteremia 03/2017 who presented with several weeks of worsened back pain. Had recent acute T8 compression fx in December 2017. Several weeks ago, had lumbar injection done which did help the pain. More recently, mid-thoracic pain was much worse, described as severe, non-radiating. No focal weakness other than R hip which has fracture and prior replacement. No fever or chills, no weight loss, no night sweats, no recent cellulitis, no issues at spine injection site. Admitted to hospital due to worsened pain, started on HAND BUTTON SPLITTER, bcx sent. Bcx now with MSSA, vanc/zosyn started and then narrowed to cefazolin. Additional history obtained from daughter at bedside. Full ROS performed and neg except as noted above. - Medical History Past Medical History (Chronic Problems): Chronic Problems Fracture of surgical neck of right humerus (Chronic) Benign essential HTN (Chronic) HLD (hyperlipidemia) (Chronic) Hypothyroidism (Chronic) S/P total knee replacement (Chronic) 01/09/16, 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) Shoulder pain, left (Chronic) Chronic pain (Chronic) Spinal stenosis (Chronic) Osteoarthritis (Chronic) Coronary artery disease (Chronic) Low back pain (Chronic) Hypertension (Chronic) GERD (gastroesophageal reflux disease) (Chronic) Lumbar spinal stenosis (Chronic) Allergies/Adverse Reactions: Allergies No Known Allergies Allergy (Verified 02/01/18 16:18) Home Medications: Ambulatory Orders Medication Instructions Recorded Atorvastatin Calcium [Lipitor] 40 mg PO QHS 12/19/13 Isosorbide Mononitrate [Imdur] 30 mg PO DAILY 12/19/13 Levothyroxine [Synthroid] 75 mcg PO DAILY 12/19/13 Metoprolol Tartrate [Lopressor 25 mg PO BID #60 tablet 01/20/16 (beta rafael)] Aspirin 81 mg PO DAILY 03/07/17 Oxycodone HCl/Acetaminophen 1 tab PO Q4H PRN PRN #22 tab 02/01/18 [Percocet 5/325] TraMADol [Ultram (G)] 50 mg PO Q6H PRN PRN 02/01/18 Calcium Carbonate [Calcium] 1,200 mg PO DAILY 02/02/18 - Social History SMOKING STATUS:: Never smoker Vital Signs Temp Pulse Resp BP Pulse Ox 98.7 F 73 16 160/77 H 97 02/03/18 10:20 02/03/18 10:50 02/03/18 10:20 02/03/18 10:50 02/03/18 10:20 Oxygen Flow Rate 2 Oxygen Delivery Method Room Air Weight: 60.781 kg Body Mass Index (BMI) 27.0 Laboratory Tests Past 24 Hrs 02/02/18 02/03/18 02/03/18 23:50 08:35 08:35 WBC 14.0 H RBC 3.61 L Hgb 11.6 L Hct 35.1 L MCV 97.2 MCH 32.1 H MCHC 33.0 RDW 13.2 RDW Differential 45.7 H Plt Count 147 L MPV 9.7 Immature Gran % (Auto) 0.300 Neut % (Auto) 91.9 H Lymph % (Auto) 3.8 L Greeley % (Auto) 3.9 Eos % (Auto) 0.0 Baso % (Auto) 0.1 Absolute Neuts (auto) 12.8 H Absolute Lymphs (auto) 0.53 L Total Counted Not Reportable Differential Comment COMMENT Sodium 136 Potassium 4.4 Chloride 102 Carbon Dioxide 24.0 Anion Gap 10 BUN 26 H Creatinine 0.92 Estim Creat Clear Calc 45.24 Est GFR (MDRD) Af Amer 75 Est GFR (MDRD) Non-Af 62 BUN/Creatinine Ratio 28.1 H Glucose 122 H Calcium 8.3 L Urine Color Yellow Urine Clarity Sl. Cloudy Urine pH 5.0 Ur Specific Jackson 1.025 Urine Protein 100 H Urine Glucose (UA) Normal Urine Ketones 150 H Urine Occult Blood 150 H Urine Nitrite Negative Urine Bilirubin Negative Urine Urobilinogen 1 H Ur Leukocyte Esterase Negative Urine RBC 0-5 SEEN Urine WBC 0-5 SEEN Ur Squamous Epith Cells 5-10 SEEN Amorphous Sediment 3+ Urine Bacteria 0 SEEN Coarse Granular Casts 5-10 SEEN Urine Mucus 0 SEEN - Other Studies Radiology: [] reviewed Other Studies: [] Route of nutrition/ use of supplements: [] Nutritional Intake: [] IV Site: [] Paula Catheter: [] - Physical Exam General: Alert, Oriented x3, Cooperative, - - in pain HEENT: Atraumatic, PERRLA, EOMI Neck: Supple, No Nodes Lungs: Clear to auscultation, Normal air movement Cardiovascular: Regular rate, Regular Rhythm, Murmur Abdomen: Bowel Sounds Present, Soft, Non Tender, Non-Distended Extremities: No edema Skin: No rashes, - - no janeway/osler/splinter hemorrhages on hands or feet IV Site: Peripheral, without redness Musculoskeletal: No Tenderness to Palpation of Joints or Extremities, - - severe pain at palpation of mid-t-spine Neurological: Cranial nerves II-XII grossly intact - Assessment/Plan Antibiotics: [] Assessment/Plan: [] Active and Suspected Problems Intractable back pain (Acute) Pathologic fracture of vertebra (Suspected) Dehydration (Acute) Abnormal bone scan of thoracic spine (Acute) Thrombocytopenia (Acute) MSSA bacteremia with multiple spine lesions/compression fracture - concern for osteo/discitis, metastatic cancer is also on the differential dx. Repeat bcx. Echo pending. Would recommend delaying kyphoplasty and proceeding with bone bx with pathology and culture. Abx narrowed to cefazolin, will dose q8h. Has prior h/o MSSA bacteremia of unclear origin, 04/2017, treated with course of iv nafcillin. Thank you, will follow. D/w Dr. Castellano who spoke with Dr. Seay about surgical plan.
--- NOTE | 2018-02-03 11:43 | CASEMGMT ---
RN CM Face to Face with patient for initial transition planning/care coordination assessment. RN CM introduced self and role at [facility]. Patient lying in bed, alert and oriented, daughter at bedside. Patient willing to participate in assessment and is able to answer all questions appropriately. Care providers, pharmacy, and demographics verified. See link attached. Per daughter Joelle, patient has an appt in [place] on Sat02/05/18 at 1:00pm and would like to discharge from hospital and go directly to appt in [place]. Daughter states that patient will need transport setup for appt. Daughter states that [facility] they will decide their discharge plan. Patient and daughter state they have no further needs or concerns at this time. CM to follow for discharge planning needs that may arise. Disposition Plan: Patient to discharge to appt in [place] with family support and follow-up plans in place.
[2018-02-03] MEDS: Ketorolac 30 MG/ML Syringe IV (14:46)
[2018-02-03] MEDS: fentaNYL 100 MCG/2 ML Ampul 25 MCG IV ×2 (14:59→19:09)
[2018-02-03] MEDS: Aspirin 81 MG TAB.CHEW PO (16:00)
[2018-02-03] MEDS: Acetaminophen 500 MG Tablet 1000 MG PO ×2 (16:01→22:43)
[2018-02-03] MEDS: Cefazolin 2 GM in 0.9% Normal Saline 100 ML IV ×2 (17:27→23:07)
[2018-02-03] MEDS: Atorvastatin Calcium 40 MG Tablet PO (22:43)
[2018-02-03] MEDS: Lactated Ringers 1,000 ML 75 ML IV (22:43)
[2018-02-04] VITALS (11 sets, daily range): BP systolic 122–155; BP diastolic 46–73; PULSE 60–93; RESP 16–20; TEMP 36.1–36.9; O2SAT 93–100; BMI 27.7
--- NOTE | 2018-02-04 | BONBX_PTH ---
PATIENT: CYNTHIA GOMES LOC: MS3 U#:[id number] AGE/SX: 82/F ROOM: PA324 RE02/02/[address]: Dr. Mart Barry MD : [id number] BED: 1 DIS: 02/08/2018 SPEC #: [id number] RECD: 02/04/18 08:16 STATUS: WENDI REQ #: [id number] VERONA: 02/04/18 00:[address]: Rubens Feliciano DEPT: SURGICAL PATHOLOGY RECD BY: Anju Lorenzana ENTERED: 02/04/18 10:52 SP TYPE: Bone OTHR DR: MD Dr. Katie Ambrosio MD Dr. Mary Catherine Sementi, DO Dr. David Bowman, MD Dr. Robert Leininger, MD Tissues: A - Back, NOS B - Back, NOS Procedures: Decalcification bone/plaque Pap Stain (control) Special Stain Group II Surgery Specimen Level IV Diff Quik Stain (control) Comments: @ Ordering doctor for DEC edited from to @ by FLORENTIN at 02/04/18 1052 @ Ordering doctor for FSC edited from to @ by FLORENTIN at 02/04/18 1052 @ Ordering doctor for SUIV edited from to @ by FLORENTIN at 02/04/18 1052 @ Submitting doctor edited from to @ by FLORENTIN at 02/04/18 1052 HEADER OPERATION: Biopsy of T8 (back) with kyphoplasty T8 bilateral PRE-OP DIAGNOSIS: Intractable back pain TISSUE SUBMITTED: A - Bone biopsy T8, right, FS, B ? T8 MICROSCOPIC DIAGNOSIS A. T8, bone, core biopsy: A piece of bone with acute osteomyelitis. B. Right T8, bone, core biopsy: A piece of bone with acute osteomyelitis. See comment. SJ:shellie 02/06/18 COMMENT A. The specimen is evaluated at the time of touch imprints by Dr. Silva. Immediate Evaluation = Multinucleated giant cell histiocytes. No evidence of acute osteomyelitis. The results are reported to Dr. Feliciano?s office on 02/06/18. MICROSCOPIC DESCRIPTION Slides are reviewed. GROSS DESCRIPTION A - Received fresh is one container labeled with the patient's name and designated biopsy T8. The specimen consists of two elongated fragments of arnold bone measuring 1.5 cm in length and 0.2 cm in diameter. Three touch imprints are prepared (two stained with H & E stain and one stained with Diff-Quik stain). The specimen is submitted in one cassette after short decalcification. / AM:shellie 02/04/18 B - Received fresh and postfixed in formalin is one container labeled with the patient's name and designated bone biopsy T8 right. The specimen consists of an elongated fragment of arnold bone with adjacent blood clot measuring 1.5 cm in length and 0.2 cm in diameter. The specimen is submitted in one cassette after short decalcification. / SJ:shellie 02/04/18 TC:2 [facility]: [id number] x2, [id number], [id number]
[2018-02-04] MEDS: Cefazolin 2 GM in 0.9% Normal Saline 100 ML IV ×3 (05:23→21:09)
[2018-02-04] MEDS: Ketorolac 15 MG/ML Vial IV ×2 (05:23→13:29)
--- NOTE | 2018-02-04 05:55 | EKG12_ITS ---
Test Reason : PRE-OP Blood Pressure : / mmHG Vent. Rate : 052 BPM Atrial Rate : 052 BPM P-R Int : 230 ms QRS Dur : 090 ms QT Int : 448 ms P-R-T Axes : 039 016 028 degrees QTc Int : 416 ms Sinus bradycardia with 1st degree A-V block Otherwise normal ECG When compared with ECG of 01-AUG-2017 10:56, T wave amplitude has increased in Lateral leads Confirmed by KIMBERLY FRIEDMAN, CLAYTON ([id number]), newspaper managing editor EDWARD ESQUEDA ([id number]) on 02/12/2018 4:18:58 PM Referred By: ANDRÉS Confirmed By:CLAYTON HARRIS MD
[2018-02-04 06:21] LABS: Thyroid Stim Hormone (TSH) 1.63 uIU/mL (0.358-3.74)
--- NOTE | 2018-02-04 07:25 | PCM.PN.HOSP ---
Patient Problems: Active and Suspected Problems Intractable back pain (Acute) Pathologic fracture of vertebra (Suspected) Dehydration (Acute) Abnormal bone scan of thoracic spine (Acute) Thrombocytopenia (Acute) MSSA bacteremia (Acute) Subjective: Patient was seen and examined. Status post bone biopsy which is reportedly negative for infection and malignancy, per Dr. Seay. Subsequently had kyphoplasty done. Patient complains of severe pain in mid-thorax. She thought the pain will all go away after the surgery as well as she can walk. Pain is almost a 10/10, just given IV Toradol. Denies fever or chills. Objective: PHYSICAL EXAM: General: Alert, Oriented x3, Cooperative, In pain - lying flat in bed HEENT: Atraumatic, PERRLA, EOMI, Normocephalic Oral: Moist Mucosa Neck: Supple Lungs: Clear to auscultation, Normal air movement Cardiovascular: Regular rate, Regular Rhythm, Normal S1, Normal S2, No murmurs Abdomen: Bowel Sounds Present, Soft, Non Tender, Non-Distended, No Hepato-splenomegaly Extremities: No edema Skin: No rashes Musculoskeletal: No Tenderness to Palpation of Joints or Extremities Lymphatic: No Cervical, Supraclavicular, or Inguinal Adenopathy Neurological: Cranial nerves II-XII grossly intact, Neuro grossly intact Psych/Mental Status: Normal Affect, Appropriate Vitals/I&O's: Vital Signs Temp Pulse Resp BP Pulse Ox 97.9 F 63 18 153/57 H 98 02/04/18 05:42 02/04/18 05:42 02/04/18 05:42 02/04/18 05:42 02/04/18 05:42 Oxygen Flow Rate (L/min) 2 Oxygen Delivery Method Room Air Weight: 62.3 kg Body Mass Index (BMI) 27.7 Intake and Output for Last 24 Hours 02/02/18 02/03/18 02/04/18 23:59 23:59 23:59 Intake Total 319 / 319 2555 / 2555 1112 / 1112 Output Total 200 / 200 675 / 675 600 / 600 Balance 119 / 119 1880 / 1880 512 / 512 Microbiology Past 72 Hours 02/03/18 11:15 Blood Culture (Wb) - Right Hand Blood Culture - Preliminary Laboratory Results 02/03/18 08:35: WBC 14.0 H, RBC 3.61 L, Hgb 11.6 L, Hct 35.1 L, MCV 97.2, MCH 32.1 H, MCHC 33.0, RDW 13.2, RDW Differential 45.7 H, Plt Count 147 L, MPV 9.7, Immature Gran % (Auto) 0.300, Neut % (Auto) 91.9 H, Lymph % (Auto) 3.8 L, Blair % (Auto) 3.9, Eos % (Auto) 0.0, Baso % (Auto) 0.1, Absolute Neuts (auto) 12.8 H, Absolute Lymphs (auto) 0.53 L, Total Counted Not Reportable, Differential Comment COMMENT 02/03/18 08:35: Sodium 136, Potassium 4.4, Chloride 102, Carbon Dioxide 24.0, Anion Gap 10, BUN 26 H, Creatinine 0.92, Estim Creat Clear Calc 45.24, Est GFR (MDRD) Af Amer 75, Est GFR (MDRD) Non-Af 62, BUN/Creatinine Ratio 28.1 H, Glucose 122 H, Calcium 8.3 L 02/04/18 05:24: TSH 1.63 Current Medications Acetaminophen (Tylenol) 1,000 mg PO Q8 [facility] Last Admin: 02/04/18 05:37 Dose: Not Given Aspirin (Aspirin, Baby) 81 mg PO DAILY@0800 [facility] Last Admin: 02/03/18 16:00 Dose: 81 mg Atorvastatin Calcium (Lipitor) 40 mg PO QHS [facility] Last Admin: 02/03/18 22:43 Dose: 40 mg Bisacodyl (Dulcolax) 10 mg PO DAILY [facility] Last Admin: 02/03/18 10:56 Dose: 10 mg Calcium Carbonate (Os-Hossein 500) 1,000 mg PO DAILY [facility] Last Admin: 02/03/18 10:50 Dose: 1,000 mg Cholecalciferol (Vitamin D) 5,000 unit PO DAILY [facility] Last Admin: 02/03/18 10:51 Dose: 5,000 unit Fentanyl (Duragesic) 50 mcg TRANSDERM. Q3D [facility] Last Admin: 02/03/18 14:46 Dose: 50 mcg Fentanyl Citrate (Sublimaze) 25 mcg IV Q4H PRN PRN PRN Reason: SEVERE PAIN (6-10/10) Last Admin: 02/03/18 19:09 Dose: 25 mcg Naloxone HCl 4 mg/ Dextrose 504 mls @ 0 mls/hr IV .Q0M PRN; Protocol; Titrate PRN Reason: To maintain Resp. rate >10 Sodium Chloride () 250 mls @ 15 mls/hr IV .[id number] PRN PRN Reason: SALINE FLUSH Last Admin: 02/03/18 04:08 Dose: 15 mls/hr Cefazolin Sodium 2 gm/ Sodium (Chloride) 120 mls @ 240 mls/hr IV Q8 [facility] Last Admin: 02/04/18 05:23 Dose: 240 mls/hr Famotidine (Pepcid 20mg) 20 mg in 50 mls @ 150 mls/hr IV Q24 [facility] Last Admin: 02/03/18 22:44 Dose: 150 mls/hr Lactated Ringer's () 1,000 mls @ 100 mls/hr IV .Q10H [facility] Isosorbide Mononitrate (Imdur) 30 mg PO DAILY [facility] Last Admin: 02/03/18 10:50 Dose: 30 mg Ketorolac Tromethamine (Toradol) 15 mg IV Q8H PRN PRN PRN Reason: SEVERE PAIN (6-10/10) Last Admin: 02/04/18 05:23 Dose: 15 mg Levothyroxine Sodium (Synthroid) 75 mcg PO DAILY@0600 [facility] Last Admin: 02/04/18 05:37 Dose: Not Given Magnesium Hydroxide (Milk Of Magnesia) 30 ml PO DAILY PRN PRN PRN Reason: Constipation Metoprolol Tartrate (Lopressor (Beta Edmund)) 25 mg PO BID [facility] Last Admin: 02/03/18 22:43 Dose: 25 mg Naloxone HCl (Narcan) 0.02 mg IV Q1M PRN PRN Reason: RR <10 and pt unresponsive Nutritional Formula (Lactose Free) (Ensure Enlive) 120 ml PO 4X/DAY [facility] Last Admin: 02/03/18 22:44 Dose: 120 ml Ondansetron HCl (Zofran) 4 mg IV Q6H PRN PRN PRN Reason: Nausea Only Promethazine HCl (Phenergan (Ll)) 6.25 mg IV Q4H PRN PRN PRN Reason: NAUSEA/VOMITING Senna/Docusate Sodium (Senokot-S, Laura-Colace) 1 tablet PO BID [facility] Last Admin: 02/03/18 22:43 Dose: 1 tablet Sodium Chloride () 5 - 30 ml IV UD PRN PRN Reason: SALINE FLUSH Last Admin: 02/03/18 14:46 Dose: 10 ml Assessment/Plan Active and Suspected Problems Intractable back pain (Acute) Pathologic fracture of vertebra (Suspected) Dehydration (Acute) Abnormal bone scan of thoracic spine (Acute) Thrombocytopenia (Acute) MSSA bacteremia (Acute) 82 year old F with a past medical history of chronic back pain, h/o recent acute T8 compressive fracture in December 2017, colon cancer with partial colon resection, admitted on 02/02/18 with intractable back pain and managed on FIRE TRUCK DRIVER pump. 1. Acute Intractable back pain secondary to acute T7 fracture, T8 vertebral compression fracture, s/p bone biopsy, kyphoplasty, on fentanyl patch, fentanyl IV 25mcg Q4hrs, IV toradol, schedulled tylenol, will increase fentanyl IV to q2hrs. Would have to monitor closely to prevent respiratory depression due to stacking of medicatioons. Explained to patient and family that the goal for pain control will be to make it tolerable. PT/OT to evaluate and treat from tomorrow. 2. MSSA bacteremia, MRSA bacteremia in 2017, repeat blood cultures are pending, preliminary one still has gram positive cocci, 2d-echo is also pending to rule out endocarditis, on IV cefazolin, will follow-up on cultures, ID following. 3. Abnormal bone scan, s/p bone biopsy, results pending. 4. History of recurrent fractures,osteoporosis, not on bisphosphonate, on vitamin D and calcium. Needs to have treatment in the outpatient. 5. CAD, s/p stent, on aspirin, statin, isosorbide, beta blockers 6. Hypertension, uncontrolled, secondary to pain, continue metoprolol 7. Thrombocytopenia, improved 8. Hypothyroidism, on levothyroxine 9. DVT PPx - SCDs; off Lovenox for possible procedure Code Visit Inpatient E&M: 79587 Subs Hosp L2
--- NOTE | 2018-02-04 07:30 | RAD_ITS ---
STUDY: X-RAY - THORACIC SPINE REASON FOR EXAM: Female, 82 years old. BIOPSY OF T8, FOLLOWED BY KYPHOPLASTY. TECHNIQUE: 2 view(s) of the thoracic spine were obtained. COMPARISON: None. FINDINGS: Fluoroscopic views were obtained for intraoperative localization. Please refer to intraoperative report. RAD/Thoracic Spine 3 Views IMPRESSION: Fluoroscopic views were obtained for intraoperative localization. Please refer to intraoperative report. Electronically Signed: Elia Damico MD at 10:12 EST Tel , Service support ,
--- NOTE | 2018-02-04 11:25 | PCM.PN.ID ---
Patient Problems: Active and Suspected Problems Intractable back pain (Acute) Pathologic fracture of vertebra (Suspected) Dehydration (Acute) Abnormal bone scan of thoracic spine (Acute) Thrombocytopenia (Acute) MSSA bacteremia (Acute) Subjective: Sleepy s/p OR this AM for kyphoplasty and bx. No fever, family at bedside. - Physical Exam General: Cooperative, No apparent distress Lungs: Clear to auscultation, Normal air movement Cardiovascular: Regular rate, Regular Rhythm Abdomen: Soft, Non Tender, Non-Distended Skin: No rashes Vital Signs Temp Pulse Resp BP Pulse Ox 97.0 F L 75 18 143/69 H 100 02/04/18 10:00 02/04/18 10:00 02/04/18 10:00 02/04/18 10:00 02/04/18 10:00 Oxygen Flow Rate (L/min) 3 Oxygen Delivery Method Nasal Cannula Weight: 62.3 kg Body Mass Index (BMI) 27.7 Intake and Output for Last 24 Hours 02/02/18 02/03/18 02/04/18 23:59 23:59 23:59 Intake Total 319 / 319 2555 / 2555 1812 / 1812 Output Total 200 / 200 675 / 675 1070 / 1070 Balance 119 / 119 1880 / 1880 742 / 742 Microbiology Past 72 Hours 02/02/18 23:50 Urine Culture - Preliminary Urine Catheter - Guidry GNR Poss Pseudomonas sp 02/03/18 11:15 Blood Culture - Preliminary Blood Culture (Wb) - Right Hand Laboratory Tests Past 24 Hrs 02/04/18 05:24 TSH 1.63 Route of nutrition/ use of supplements: [] Nutritional Intake: [] IV Site: [] Guidry Catheter: [] - Assessment/Plan Antibiotics: [] Assessment/Plan: [] Active and Suspected Problems Intractable back pain (Acute) Pathologic fracture of vertebra (Suspected) Dehydration (Acute) Abnormal bone scan of thoracic spine (Acute) Thrombocytopenia (Acute) MSSA bacteremia with multiple spine lesions/compression fracture - concern for osteo/discitis, metastatic cancer is also on the differential dx. Repeat bcx. Echo pending. Pending bone pathology and culture. Abx narrowed to cefazolin q8h. Pseudomonas in Ucx - no urinary symptoms, and no pyuria on UA. Possible contaminant, will monitor. Remove guidry as soon as able. will follow.
[2018-02-04] MEDS: fentaNYL 100 MCG/2 ML Ampul 25 MCG IV ×4 (12:33→23:57)
--- NOTE | 2018-02-04 14:30 | CASEMGMT ---
MARGARITA BALLARD discussed discharge plans with patient's daughter, Joelle. Daughter states that their plan is for patient to go to SNF for IV ATB and therapy. Patient and family's first choice for SNF is [facility] in [place]. MARGARITA BALLARD updated Dr. Delgadillo and MYNOR Oconnor.
[2018-02-04] MEDS: Isosorbide Mononitrate 30 MG Tablet PO (15:26)
[2018-02-04] MEDS: Metoprolol Tartrate 25 MG Tablet PO ×2 (15:27→21:09)
[2018-02-04] MEDS: Bisacodyl 5 MG Tablet 10 MG PO (15:28)
[2018-02-04] MEDS: Calcium (Elemental) 500 MG Tablet 1000 MG PO (15:28)
[2018-02-04] MEDS: Acetaminophen 500 MG Tablet 1000 MG PO ×2 (15:29→21:09)
[2018-02-04] MEDS: Aspirin 81 MG TAB.CHEW PO (15:29)
[2018-02-04] MEDS: Senna/Docusate Sodium 1 Tablet PO ×2 (15:30→21:09)
[2018-02-04] MEDS: Lactated Ringers 1,000 ML 100 ML IV (15:40)
--- NOTE | 2018-02-04 15:58 | CASEMGMT ---
Social Work Note Update from RN ELIO Davis - that the pt is now seeking placement at [facility]. Initial referral faxed and SW to continue to follow and assist with discharge planning. Plan: SNF pending acceptance. Elise Oconnor, GAS APPLIANCE MECHANIC, MEDICAL TECHNOLOGIST
--- NOTE | 2018-02-04 16:18 | CASEMGMT ---
Social Work Note Call from Jocelin at [facility] stating that they could accept depending on the antibiotic and how often it needs administered. Will f/u with tomorrow after further discussion with the physician. If pt needs administered IV atb more than 2x/day not sure that [facility] can accept. Plan: SNF pending acceptance. Elise Oconnor, METAL PAINTER, VIDEO SYSTEMS ENGINEER
[2018-02-04] MEDS: 0.9% NaCl Peripheral Flush Adult/Peds IV (20:08)
[2018-02-04] MEDS: Atorvastatin Calcium 40 MG Tablet PO (21:09)
[2018-02-05] VITALS (9 sets, daily range): BP systolic 138–197; BP diastolic 58–80; PULSE 57–75; RESP 18–24; TEMP 35.8–37; O2SAT 95–99
[2018-02-05] MEDS: fentaNYL 100 MCG/2 ML Ampul 25 MCG IV ×4 (02:50→12:13)
[2018-02-05] MEDS: Lactated Ringers 1,000 ML 100 ML IV ×2 (02:54→13:48)
[2018-02-05] MEDS: Ketorolac 15 MG/ML Vial IV (03:19)
[2018-02-05] MEDS: 0.9% NaCl Peripheral Flush Adult/Peds IV ×4 (03:20→14:31)
[2018-02-05] MEDS: Cefazolin 2 GM in 0.9% Normal Saline 100 ML IV ×3 (05:40→22:52)
[2018-02-05] MEDS: Acetaminophen 500 MG Tablet 1000 MG PO ×2 (05:41→17:12)
[2018-02-05] MEDS: Levothyroxine 75 MCG Tablet PO (05:41)
[2018-02-05 06:15] LABS: Absolute Lymphocyte Count 0.78 X10^3/ul (0.83-4.51); Absolute Neutrophil Count 5.9 X10^3/uL (2.0-7.7); Basophil# 0.01 X10^3/uL; Basophil% 0.1 % (0-1); Eosinophil# 0.08 X10^3/uL; Eosinophils% 1.1 % (0-5); Lymphocyte # 0.78 X10^3/ul (4.0); Lymphocyte % 10.4 % (19-41); Mean Corp Hgb Conc 32.3 g/gl (32-36); Mean Corpuscular Hgb 32.3 pg (27.0-32.0); Monocyte# 0.69 X10^3/uL; Monocyte% 9.2 % (0-10); Neutrophil # 5.93 X10^3/uL (2.7-7.7); Neutrophil % 78.9 % (47-70); Platelet Count 134 K/mm3 (150-450); RBC Distribution Width CV 13.6 % (11.6-14.6); RBC Distribution Width SD 48.1 fl (35.1-43.9); White Blood Count 7.5 K/mm3 (4.4-11.0)
[2018-02-05 06:20] LABS: POSITIVE COUNT NO; POSITIVE DIFFERENTIAL NO; POSITIVE MORPHOLOGY NO
[2018-02-05 06:36] LABS: Anion Gap 6 (5-15); BUN 16 mg/dL (7-18); BUN/Creat Ratio 21.2 RATIO (10-20); Calcium,Total 7.9 mg/dL (8.5-10.1); Chloride 109 mmol/L (98-107); Creatinine, Serum 0.75 mg/dL (0.55-1.02); EST Glomerular Filtration Rate 78 mL/min (>60); Est Glom Filt Rate - Afr Amer 95 mL/min (>60); Estimated Creatinine Clearance 42.66 ml/min; Glucose 92 mg/dL (74-106); Potassium 3.8 mmol/L (3.5-5.1); Sodium Level 143 mmol/L (136-145)
--- NOTE | 2018-02-05 06:38 | PN.ID_ITS ---
Patient Problems: Active and Suspected Problems Intractable back pain (Acute) Pathologic fracture of vertebra (Suspected) Dehydration (Acute) Abnormal bone scan of thoracic spine (Acute) Thrombocytopenia (Acute) MSSA bacteremia (Acute) Subjective: No fever, no events overnight. - Physical Exam General: No apparent distress Lungs: Clear to auscultation, Normal air movement Cardiovascular: Regular rate, Regular Rhythm Abdomen: Soft, Non Tender, Non-Distended Skin: No rashes Vital Signs Temp Pulse Resp BP Pulse Ox 97.9 F 68 20 H 147/73 H 99 02/05/18 02:57 02/05/18 02:57 02/05/18 02:57 02/05/18 02:57 02/05/18 02:57 Oxygen Flow Rate (L/min) 2 Oxygen Delivery Method Nasal Cannula Weight: 62.3 kg Body Mass Index (BMI) 27.7 Intake and Output for Last 24 Hours 02/03/18 02/04/18 02/05/18 23:59 23:59 23:59 Intake Total 2555 / 2555 3501 / 3501 675 / 675 Output Total 675 / 675 1570 / 1570 750 / 750 Balance 1880 / 1880 1931 / 1931 -75 / -75 Microbiology Past 72 Hours 02/04/18 08:08 Gram Stain - Final Biopsy - Back 02/02/18 23:50 Urine Culture - Preliminary Urine Catheter - Paula GNR Poss Pseudomonas sp 02/03/18 11:15 Blood Culture - Preliminary Blood Culture (Wb) - Right Hand Laboratory Tests Past 24 Hrs 02/05/18 02/05/18 05:58 05:58 WBC 7.5 RBC 3.10 L Hgb 10.0 L Hct 31.0 L MCV 100.0 H MCH 32.3 H MCHC 32.3 RDW 13.6 RDW Differential 48.1 H Plt Count 134 L MPV 10.0 Immature Gran % (Auto) 0.300 Neut % (Auto) 78.9 H Lymph % (Auto) 10.4 L Holmes % (Auto) 9.2 Eos % (Auto) 1.1 Baso % (Auto) 0.1 Absolute Neuts (auto) 5.9 Absolute Lymphs (auto) 0.78 L Total Counted Not Reportable Sodium Pending Potassium Pending Chloride Pending Carbon Dioxide Pending Anion Gap Pending BUN Pending Creatinine Pending Est GFR (MDRD) Af Amer Pending Est GFR (MDRD) Non-Af Pending BUN/Creatinine Ratio Pending Glucose Pending Calcium Pending Route of nutrition/ use of supplements: [] Nutritional Intake: [] IV Site: [] Paula Catheter: [] - Assessment/Plan Antibiotics: [] Assessment/Plan: [] Active and Suspected Problems Intractable back pain (Acute) Pathologic fracture of vertebra (Suspected) Dehydration (Acute) Abnormal bone scan of thoracic spine (Acute) Thrombocytopenia (Acute) MSSA bacteremia with multiple spine lesions/compression fracture - concern for osteo/discitis, metastatic cancer is also on the differential dx. Repeat bcx neg so far. TTE neg for veg. Pending bone pathology and culture. Abx narrowed to cefazolin q8h. Discharge plan would be for picc placement and 4-8 weeks of iv cefazolin 2gm q8h. Duration will depend on results of bone path, and this can be adjusted after discharge if these are not finalized. Start date of course will be first set of negative bcx, 02/03/18, but this is still less than 48 hours of growth. Ok for picc placement once these are negative 48- 72 hours. Weekly bmp, cbc, and esr while on iv abx, fax to [phone]. ID follow-up in 2-3 weeks after discharge. Pseudomonas in Ucx - no urinary symptoms, and no pyuria on UA. Possible contaminant, will monitor. will follow.
--- NOTE | 2018-02-05 07:16 | PN_ITS ---
Patient Problems: Active and Suspected Problems Intractable back pain (Acute) Pathologic fracture of vertebra (Suspected) Dehydration (Acute) Abnormal bone scan of thoracic spine (Acute) Thrombocytopenia (Acute) MSSA bacteremia (Acute) Subjective: Patient was seen and examined. She has severe excruciating pain in her mid thoracic and low back that is not relieved with fentanyl 50mcg patch, IV fentanyl 25mcg q2h, tylenol 1000mg q8, lidoderm patch. She is nauseated and not comfortable. Denies fever or chills. Patient moves from side to side. Objective: PHYSICAL EXAM: General: Alert, Oriented x3, Cooperative, In pain -writhing in bed HEENT: Atraumatic, PERRLA, EOMI, Normocephalic Oral: Moist Mucosa Neck: Supple Lungs: Clear to auscultation, Normal air movement Cardiovascular: Regular rate, Regular Rhythm, Normal S1, Normal S2, No murmurs Abdomen: Bowel Sounds Present, Soft, Non Tender, Non-Distended, No Hepato- splenomegaly Extremities: No edema Skin: No rashes Musculoskeletal: No Tenderness to Palpation of Joints or Extremities Lymphatic: No Cervical, Supraclavicular, or Inguinal Adenopathy Neurological: Cranial nerves II-XII grossly intact, Neuro grossly intact Psych/Mental Status: Normal Affect, Appropriate Vitals/I&O's: Vital Signs Temp Pulse Resp BP Pulse Ox 97.9 F 68 20 H 147/73 H 99 02/05/18 02:57 02/05/18 02:57 02/05/18 02:57 02/05/18 02:57 02/05/18 02:57 Oxygen Flow Rate (L/min) 2 Oxygen Delivery Method Nasal Cannula Weight: 62.3 kg Body Mass Index (BMI) 27.7 Intake and Output for Last 24 Hours 02/03/18 02/04/18 02/05/18 23:59 23:59 23:59 Intake Total 2555 / 2555 3501 / 3501 675 / 675 Output Total 675 / 675 1570 / 1570 750 / 750 Balance 1880 / 1880 1931 / 193 -75 / -75 Microbiology Past 72 Hours 02/04/18 08:08 Biopsy - Back Gram Stain - Final 02/02/18 23:50 Urine Catheter - Paula Urine Culture - Preliminary GNR Poss Pseudomonas sp 02/03/18 11:15 Blood Culture (Wb) - Right Hand Blood Culture - Preliminary Laboratory Results 02/05/18 05:58: WBC 7.5, RBC 3.10 L, Hgb 10.0 L, Hct 31.0 L, MCV 100.0 H, MCH 32.3 H, MCHC 32.3, RDW 13.6, RDW Differential 48.1 H, Plt Count 134 L, MPV 10.0 , Immature Gran % (Auto) 0.300, Neut % (Auto) 78.9 H, Lymph % (Auto) 10.4 L, [place] % (Auto) 9.2, Eos % (Auto) 1.1, Baso % (Auto) 0.1, Absolute Neuts (auto) 5.9, Absolute Lymphs (auto) 0.78 L, Total Counted Not Reportable 02/05/18 05:58: Sodium 143, Potassium 3.8, Chloride 109 H, Carbon Dioxide 28.0, Anion Gap 6, BUN 16, Creatinine 0.75, Estim Creat Clear Calc 42.66, Est GFR ( MDRD) Af Amer 95, Est GFR (MDRD) Non-Af 78, BUN/Creatinine Ratio 21.2 H, Glucose 92, Calcium 7.9 L Current Medications Acetaminophen (Tylenol) 1,000 mg PO Q8 [facility] Last Admin: 02/05/18 05:41 Dose: 1,000 mg Aspirin (Aspirin, Baby) 81 mg PO DAILY@0800 [facility] Last Admin: 02/04/18 15:29 Dose: 81 mg Atorvastatin Calcium (Lipitor) 40 mg PO QHS [facility] Last Admin: 02/04/18 21:09 Dose: 40 mg Bisacodyl (Dulcolax) 10 mg PO DAILY [facility] Last Admin: 02/04/18 15:28 Dose: 10 mg Calcium Carbonate (Os-Hossein 500) 1,000 mg PO DAILY [facility] Last Admin: 02/04/18 15:28 Dose: 1,000 mg Cholecalciferol (Vitamin D) 5,000 unit PO DAILY [facility] Last Admin: 02/04/18 15:26 Dose: 5,000 unit Fentanyl (Duragesic) 50 mcg TRANSDERM. Q3D [facility] Last Admin: 02/03/18 14:46 Dose: 50 mcg Fentanyl Citrate (Sublimaze) 25 mcg IV Q2H PRN PRN PRN Reason: SEVERE PAIN (6-10/10) Last Admin: 02/05/18 05:41 Dose: 25 mcg Naloxone HCl 4 mg/ Dextrose 504 mls @ 0 mls/hr IV .Q0M PRN; Protocol; Titrate PRN Reason: To maintain Resp. rate >10 Sodium Chloride () 250 mls @ 15 mls/hr IV .[id number] PRN PRN Reason: SALINE FLUSH Last Admin: 02/03/18 04:08 Dose: 15 mls/hr Cefazolin Sodium 2 gm/ Sodium (Chloride) 120 mls @ 240 mls/hr IV Q8 [facility] Last Admin: 02/05/18 05:40 Dose: 240 mls/hr Famotidine (Pepcid 20mg) 20 mg in 50 mls @ 150 mls/hr IV Q24 [facility] Last Admin: 02/04/18 12:48 Dose: 150 mls/hr Lactated Ringer's () 1,000 mls @ 100 mls/hr IV .Q10H [facility] Last Admin: 02/05/18 02:54 Dose: 100 mls/hr Isosorbide Mononitrate (Imdur) 30 mg PO DAILY [facility] Last Admin: 02/04/18 15:26 Dose: 30 mg Levothyroxine Sodium (Synthroid) 75 mcg PO DAILY@0600 [facility] Last Admin: 02/05/18 05:41 Dose: 75 mcg Magnesium Hydroxide (Milk Of Magnesia) 30 ml PO DAILY PRN PRN PRN Reason: Constipation Metoprolol Tartrate (Lopressor (Beta Edmund)) 25 mg PO BID [facility] Last Admin: 02/04/18 21:09 Dose: 25 mg Naloxone HCl (Narcan) 0.02 mg IV Q1M PRN PRN Reason: RR <10 and pt unresponsive Nutritional Formula (Lactose Free) (Ensure Enlive) 120 ml PO 4X/DAY [facility] Last Admin: 02/04/18 22:00 Dose: Not Given Ondansetron HCl (Zofran) 4 mg IV Q6H PRN PRN PRN Reason: Nausea Only Promethazine HCl (Phenergan (Ll)) 6.25 mg IV Q4H PRN PRN PRN Reason: NAUSEA/VOMITING Last Admin: 02/05/18 03:19 Dose: 6.25 mg Senna/Docusate Sodium (Senokot-S, Laura-Colace) 1 tablet PO BID [facility] Last Admin: 02/04/18 21:09 Dose: 1 tablet Sodium Chloride () 5 - 30 ml IV UD PRN PRN Reason: SALINE FLUSH Last Admin: 02/05/18 03:20 Dose: 10 ml Assessment/Plan Active and Suspected Problems Intractable back pain (Acute) Pathologic fracture of vertebra (Suspected) Dehydration (Acute) Abnormal bone scan of thoracic spine (Acute) Thrombocytopenia (Acute) MSSA bacteremia (Acute) 82 year old F with a past medical history of chronic back pain, h/o recent acute T8 compressive fracture in December 2017, colon cancer with partial colon resection, admitted on 02/02/18 with intractable back pain and initially managed on [employer]STRUCTION[employer] MANAGER pump but with no pain control. 1. Acute Intractable back pain, s/p bone biopsy, s/p recent Kyphoplasty, POD #2 , pain is not under control despite several medications, suspect a component of muscle spasms. Recent acute T7 fracture, T8 vertebral compression fracture. I explained to family that continue with medical management, but we have to be cautious not to put the patient in respiratory depression from all the medications. Plan:Stat MRI of thoracic and lumbar spines, ativan 1mg IV x 1, repeated x1, fentanyl IV 25 mcg every 2, continue fentanyl patch 75 mcg, IV Toradol 30 mg q. 6, add Flexeril 10 mg p.o. 3 times daily, discussed with Dr. Seay and Dr. Edmond. Will continue to monitor patient. 2. MSSA bacteremia, repeat blood cultures are pending, preliminary Blood cultures growing MSSA, biopsy of back also growing MSSA, 2d-echo negative for endocarditis, on IV cefazolin, ?KIMI, other blood cultures sample is pending. 3. Abnormal bone scan, s/p bone biopsy, pathology is pending. 4. History of recurrent fractures,osteoporosis, not on bisphosphonate, on vitamin D and calcium. Needs to have treatment in the outpatient. 5. CAD, s/p stent, on aspirin, statin, isosorbide, beta blockers 6.Hypertension, uncontrolled, secondary to pain, continue metoprolol 7.Thrombocytopenia, improved 8.Hypothyroidism, on levothyroxine 9.DVT PPx - SCDs; off Lovenox for possible procedure Code Visit Inpatient E&M: 42290 Subs Hosp L3
[2018-02-05] MEDS: Bisacodyl 5 MG Tablet 10 MG PO (09:59)
[2018-02-05] MEDS: Lidocaine 5% Patch 2 PATCH TOPICAL (09:59)
[2018-02-05] MEDS: Isosorbide Mononitrate 30 MG Tablet PO (09:59)
[2018-02-05] MEDS: Senna/Docusate Sodium 1 Tablet PO (10:00)
[2018-02-05] MEDS: Calcium (Elemental) 500 MG Tablet 1000 MG PO (10:00)
[2018-02-05] MEDS: Aspirin 81 MG TAB.CHEW PO (10:05)
[2018-02-05] MEDS: Metoprolol Tartrate 25 MG Tablet PO (10:12)
[2018-02-05] MEDS: Ketorolac 30 MG/ML Syringe IV ×3 (12:14→22:53)
--- NOTE | 2018-02-05 13:28 | NURSING ---
sent dr. cardoso a message requesting she come evaluate patient, pt crying/moaning in pain. daughter requesting to talk w/ her. Aquiles GALARZA just came to room. Discussed patient with Aquiles Harry, informed him we requested Dr. Cardoso come see pt. informed Aquiles is requesting to talk w/ her. She returned call, Aquiles given call.
[2018-02-05] MEDS: LORazepam 2 MG/ML Syringe 1 MG IV ×3 (13:44→15:49)
--- NOTE | 2018-02-05 13:52 | PCM.PN.ORT ---
Patient Problems: Active and Suspected Problems Intractable back pain (Acute) Pathologic fracture of vertebra (Suspected) Dehydration (Acute) Abnormal bone scan of thoracic spine (Acute) Thrombocytopenia (Acute) MSSA bacteremia (Acute) Subjective: Patient lying on her right side patient was writhing in pain. Patient's daughter at her bedside. Patient states she has been having severe pain in the lower back with radiation to both of her sides and abdomen. Patient states this is the worst pain she has had to date, with her lower back pain. Objective: Upon entering the room, I found the patient lying on her right side. Patient was writhing in pain. Patient was alert and oriented. No obvious respiratory distress. Patient's abdomen was soft with tenderness diffusely to the lower quadrants, and CVA tenderness. Patient had discomfort to palpation to the paravertebral musculature of the lumbar region. Patient is equal femoral pulses. Patient had no pulsatile masses in the abdomen. Patient has good strong distal posterior tibial pulses. Patient has no appreciable ecchymosis or inflammation in the area of the puncture sites of the kyphoplasty. Dr. Delgadillo was in the room with me during my evaluation, and did her own independent evaluation. - Physical Exam General: Alert, Oriented x3, Cooperative HEENT: PERRLA Oral: Moist Mucosa Cardiovascular: Regular Rhythm Neurological: Cranial nerves II-XII grossly intact Psych/Mental Status: Normal Affect, Appropriate, Alert and oriented to time, place, person, mood and affect Vital Signs Temp Pulse Resp BP Pulse Ox 98.2 F 73 20 H 197/79 H 95 02/05/18 12:14 02/05/18 12:14 02/05/18 12:14 02/05/18 12:14 02/05/18 12:44 Oxygen Flow Rate (L/min) 1 Oxygen Delivery Method Room Air Weight: 62.3 kg Body Mass Index (BMI) 27.7 Intake and Output for Last 24 Hours 02/03/18 02/04/18 02/05/18 23:59 23:59 23:59 Intake Total 2555 / 2555 3501 / 3501 1545 / 1545 Output Total 675 / 675 1570 / 1570 1525 / 1525 Balance 1880 / 1880 1931 / 1931 20 / 20 Microbiology Past 72 Hours 02/04/18 08:08 Gram Stain - Final Biopsy - Back Wound Culture - Preliminary Staphylococcus aureus 02/03/18 11:15 Blood Culture - Preliminary Blood Culture (Wb) - Right Hand Staphylococcus aureus 02/02/18 23:50 Urine Culture - Final Urine Catheter - Paula Pseudomonas aeroginosa Laboratory Tests Past 24 Hrs 02/05/18 02/05/18 05:58 05:58 WBC 7.5 RBC 3.10 L Hgb 10.0 L Hct 31.0 L MCV 100.0 H MCH 32.3 H MCHC 32.3 RDW 13.6 RDW Differential 48.1 H Plt Count 134 L MPV 10.0 Immature Gran % (Auto) 0.300 Neut % (Auto) 78.9 H Lymph % (Auto) 10.4 L [place] % (Auto) 9.2 Eos % (Auto) 1.1 Baso % (Auto) 0.1 Absolute Neuts (auto) 5.9 Absolute Lymphs (auto) 0.78 L Total Counted Not Reportable Sodium 143 Potassium 3.8 Chloride 109 H Carbon Dioxide 28.0 Anion Gap 6 BUN 16 Creatinine 0.75 Estim Creat Clear Calc 42.66 Est GFR (MDRD) Af Amer 95 Est GFR (MDRD) Non-Af 78 BUN/Creatinine Ratio 21.2 H Glucose 92 Calcium 7.9 L Assessment/Plan Active and Suspected Problems Intractable back pain (Acute) Pathologic fracture of vertebra (Suspected) Dehydration (Acute) Abnormal bone scan of thoracic spine (Acute) Thrombocytopenia (Acute) MSSA bacteremia (Acute) Status post kyphoplasty of T7 Intractable low back pain 1. Continue all pain medications as prescribed 2. Medicine will continue to follow medically. 3. Will obtain MRI of the thoracic lumbar spine with contrast. 4. Medicine will contact Dr. Feliciano with results, to discuss further treatment options.
--- NOTE | 2018-02-05 13:57 | MRI_ITS ---
MR Spine Lumbar W/O Contrast INDICATION: cord compression. Intractible back pain. Kyphoplasty 318. Best images-patient had multiple meds on board and mobilization devices used. COMPARISON: None TECHNIQUE: Multiplanar multisequence MRI examination of the lumbar spine without contrast. FINDINGS: The study is markedly limited due to motion. There is left convex scoliosis of the thoracolumbar spine. There is no evidence of bone marrow edema at the lumbar levels. Disc spaces are decreased at all levels. Bridging osteophytes are noted at the upper lumbar levels. L1-2 level demonstrates mild fluid in the disc space without evidence of endplate edema. Circumferential disc osteophyte formation is noted and bilateral facet joint arthropathy with severe bilateral neuroforaminal stenosis. Spinal canal is patent. L2-3 level demonstrates circumferential disc osteophyte formation and severe facet arthritic changes with severe bilateral neuroforaminal stenosis. Spinal canal is mild to moderately narrowed. L3-4 level demonstrates diffuse disc bulging and severe facet arthritic changes with moderate to severe spinal canal and bilateral neuroforaminal stenosis. L4-5 level demonstrates effacement of the disc space and circumferential disc osteophyte formation and bilateral facet arthritic changes resulting in severe spinal canal and bilateral neuroforaminal stenosis. L5-S1 level demonstrates facet arthritic changes and mild circumferential disc osteophyte formation with severe spinal canal and bilateral neuroforaminal stenosis. MRI/Spine Lumbar (Routine) IMPRESSION: Scoliosis and severe multilevel degenerative changes at the thoracic spine with multilevel spinal canal and neuroforaminal stenosis as detailed above. at 1759 Reported and signed by: Evelina Valencia MD Electronically Signed: Evelina Valencia MD at 16:58 EST Tel , Service support ,
--- NOTE | 2018-02-05 13:58 | MRI_ITS ---
MR Spine Thoracic W/O Contrast INDICATION: intractable back pain. Best images-multiple medications given and pt immobilized. Kyphoplasty 02/04/18 COMPARISON: MRI thoracic spine February 03, 2018 TECHNIQUE: Multiplanar multisequence MRI examination of the thoracic spine without contrast FINDINGS: There is redemonstration of complete compression deformity of the T8 vertebral body with associated surrounding soft tissue mass, compatible with pathologic fracture. Vertebroplasty changes are noted. There is stable pulmonary edema in T7 vertebral body, compatible with micro-compression and/or extension of the metastatic process, this is unchanged compared to the prior study from 2 days prior. Reevaluation of the facet joints and spinous processes is not possible due to significant patient motion on this study, there are areas of bone marrow edema to spinous processes again suggested, as on the prior study, compatible with metastatic disease. Sagittal T2-weighted sequence suggest posterior protrusion of the T8 cortex into the spinal canal with questionable focal mass effect onto the cord, this cannot be confirmed on the axial images due to motion. Bilateral pleural effusions are suggested. MRI/Spine Thoracic (Routine) IMPRESSION: Study markedly limited due to motion. Study appears essentially unchanged compared to February 03, 2018 with a mass centered at the T8 vertebral body with pathologic compression fracture, suggestive of metastatic disease. Paraspinal extension of the mass and retropulsion of the posterior cortex with spinal canal narrowing. Stable pulmonary edema in T7 vertebral body, may be due to microcompressions and/or extension of the mass lesion. at 1752 Reported and signed by: Evelina Valencia MD Electronically Signed: Evelina Valencia MD at 16:51 EST Tel , Service support ,
--- NOTE | 2018-02-05 15:15 | NURSING ---
called by stating MRI called her that after 2mg ativan and 25mcg fentanyl pt still unable to tolerate MRI. requesting Primary RN go to MRI and administer additional 1mg of Ativan IV (totally 3mg) Primary RN informed.
--- NOTE | 2018-02-05 17:47 | CASEMGMT ---
Social Work Note Placed call to Dr. Cabrera to see if the IV antibiotic could be substituted for any other medication with less frequency of distribution. According to Dr. Cabrera this antibiotic was the best to treat the pt at this time. Placed call to Jocelin with [facility] who confirms that they are able to manage the 3x/day antibiotic and will anticipate accepting the pt tomorrow, 02/06. Plan: [facility] for rehabilitation. Elise Oconnor, INSTRUCTOR NURSE, ENTERPRISE PROJECT MANAGER
[2018-02-06] VITALS (9 sets, daily range): BP systolic 131–162; BP diastolic 59–81; PULSE 57–80; RESP 16–18; TEMP 35.9–36.9; O2SAT 94–99
[2018-02-06] MEDS: Lactated Ringers 1,000 ML 100 ML IV ×3 (05:01→17:30)
[2018-02-06] MEDS: Ketorolac 30 MG/ML Syringe IV (05:02)
[2018-02-06] MEDS: Cefazolin 2 GM in 0.9% Normal Saline 100 ML IV ×3 (05:09→21:52)
[2018-02-06] MEDS: Acetaminophen 500 MG Tablet 1000 MG PO ×3 (06:52→21:51)
[2018-02-06] MEDS: Levothyroxine 75 MCG Tablet PO (06:52)
--- NOTE | 2018-02-06 08:14 | PCM.PN.HOSP ---
Patient Problems: Active and Suspected Problems Intractable back pain (Acute) Pathologic fracture of vertebra (Suspected) Dehydration (Acute) Abnormal bone scan of thoracic spine (Acute) Thrombocytopenia (Acute) MSSA bacteremia (Acute) Subjective: Follow-up on intractable back pain: Seen and examined. Current pain regimen seems to be helping her. Patient was said to have slept throughout the night. Family member was at the bedside. Did not receive any more narcotic overnight. Had a couple of doses of Toradol overnight. Per family, this is the most sleep that she has gotten in days. Patient appears more rested and not monaing. She was moved to chair earlier on by therapy without having to be premedicated. Patient had breakfast and lunch. Denied fever or chills, or chest pain. Was able to wiggle her toes. No tingling or numbness in lower extremities. Objective: PHYSICAL EXAM: General: Alert, Oriented x3, Cooperative, comfortable HEENT: Atraumatic, PERRLA, EOMI, Normocephalic Oral: Moist Mucosa Neck: Supple Lungs: Clear to auscultation, Normal air movement Cardiovascular: Regular rate, Regular Rhythm, Normal S1, Normal S2, No murmurs Abdomen: Bowel Sounds Present, Soft, Non Tender, Non-Distended, No Hepato-splenomegaly Extremities: No edema Skin: No rashes Musculoskeletal: No Tenderness to Palpation of Joints or Extremities Lymphatic: No Cervical, Supraclavicular, or Inguinal Adenopathy Neurological: Cranial nerves II-XII grossly intact, Neuro grossly intact Psych/Mental Status: Normal Affect, Appropriate Vitals/I&O's: Vital Signs Temp Pulse Resp BP Pulse Ox 96.6 F L 57 L 18 162/81 H 97 02/06/18 03:10 02/06/18 03:10 02/06/18 03:20 02/06/18 03:10 02/06/18 03:10 Oxygen Flow Rate (L/min) 2 Oxygen Delivery Method Nasal Cannula Weight: 62.3 kg Body Mass Index (BMI) 27.7 Intake and Output for Last 24 Hours 02/04/18 02/05/18 02/06/18 23:59 23:59 23:59 Intake Total 3501 / 3501 2075 / 2075 1220 / 1220 Output Total 1570 / 1570 2125 / 2125 1000 / 1000 Balance 193 / 1930 -50 / -50 220 / 220 Microbiology Past 72 Hours 02/04/18 08:08 Biopsy - Back Gram Stain - Final 02/04/18 08:08 Biopsy - Back Wound Culture - Final Staphylococcus aureus 02/04/18 10:35 Blood Culture (Wb) - Left Hand Blood Culture - Preliminary 02/03/18 11:15 Blood Culture (Wb) - Right Hand Blood Culture - Preliminary Staphylococcus aureus 02/02/18 23:50 Urine Catheter - Paula Urine Culture - Final Pseudomonas aeroginosa Current Medications Acetaminophen (Tylenol) 1,000 mg PO Q8 [facility] Last Admin: 02/06/18 06:52 Dose: 1,000 mg Aspirin (Aspirin, Baby) 81 mg PO DAILY@0800 [facility] Last Admin: 02/05/18 10:05 Dose: 81 mg Atorvastatin Calcium (Lipitor) 40 mg PO QHS [facility] Last Admin: 02/05/18 22:54 Dose: Not Given Bisacodyl (Dulcolax) 10 mg PO DAILY [facility] Last Admin: 02/05/18 09:59 Dose: 10 mg Calcium Carbonate (Os-Hossein 500) 1,000 mg PO DAILY [facility] Last Admin: 02/05/18 10:00 Dose: 1,000 mg Cholecalciferol (Vitamin D) 5,000 unit PO DAILY [facility] Last Admin: 02/05/18 10:01 Dose: 5,000 unit Cyclobenzaprine HCl (Flexeril) 10 mg PO TID [facility] Last Admin: 02/06/18 06:52 Dose: 10 mg Hydromorphone HCl (Dilaudid) 1 mg IV Q4H PRN PRN PRN Reason: SEVERE PAIN (6-10/10) Naloxone HCl 4 mg/ Dextrose 504 mls @ 0 mls/hr IV .Q0M PRN; Protocol; Titrate PRN Reason: To maintain Resp. rate >10 Sodium Chloride () 250 mls @ 15 mls/hr IV .[id number] PRN PRN Reason: SALINE FLUSH Last Admin: 02/03/18 04:08 Dose: 15 mls/hr Cefazolin Sodium 2 gm/ Sodium (Chloride) 120 mls @ 240 mls/hr IV Q8 [facility] Last Admin: 02/06/18 05:09 Dose: 240 mls/hr Famotidine (Pepcid 20mg) 20 mg in 50 mls @ 150 mls/hr IV Q24 [facility] Last Admin: 02/05/18 10:00 Dose: 150 mls/hr Lactated Ringer's () 1,000 mls @ 100 mls/hr IV .Q10H [facility] Last Admin: 02/06/18 05:01 Dose: 100 mls/hr Isosorbide Mononitrate (Imdur) 30 mg PO DAILY [facility] Last Admin: 02/05/18 09:59 Dose: 30 mg Ketorolac Tromethamine (Toradol) 30 mg IV Q6H PRN PRN PRN Reason: SEVERE PAIN (6-1010) Stop: 02/08/18 18:01 Last Admin: 02/06/18 05:02 Dose: 30 mg Levothyroxine Sodium (Synthroid) 75 mcg PO DAILY@0600 [facility] Last Admin: 02/06/18 06:52 Dose: 75 mcg Lidocaine (Lidoderm Patch) 2 patch TOPICAL DAILY [facility] PRN Reason: Protocol Last Admin: 02/05/18 09:59 Dose: 2 patch Magnesium Hydroxide (Milk Of Magnesia) 30 ml PO DAILY PRN PRN PRN Reason: Constipation Metoprolol Tartrate (Lopressor (Beta Edmund)) 25 mg PO BID [facility] Last Admin: 02/05/18 22:54 Dose: Not Given Naloxone HCl (Narcan) 0.02 mg IV Q1M PRN PRN Reason: RR <10 and pt unresponsive Nutritional Formula (Lactose Free) (Ensure Enlive) 120 ml PO 4X/DAY [facility] Last Admin: 02/05/18 22:53 Dose: Not Given Ondansetron HCl (Zofran) 4 mg IV Q6H PRN PRN PRN Reason: Nausea Only Oxycodone HCl (Oxycontin) 20 mg PO BID [facility] Last Admin: 02/05/18 22:58 Dose: Not Given Promethazine HCl (Phenergan (Ll)) 6.25 mg IV Q4H PRN PRN PRN Reason: NAUSEA/VOMITING Last Admin: 02/05/18 03:19 Dose: 6.25 mg Senna/Docusate Sodium (Senokot-S, Laura-Colace) 1 tablet PO BID [facility] Last Admin: 02/05/18 22:55 Dose: Not Given Sodium Chloride () 5 - 30 ml IV UD PRN PRN Reason: SALINE FLUSH Last Admin: 02/05/18 14:31 Dose: 10 ml Assessment/Plan Active and Suspected Problems Intractable back pain (Acute) Pathologic fracture of vertebra (Suspected) Dehydration (Acute) Abnormal bone scan of thoracic spine (Acute) Thrombocytopenia (Acute) MSSA bacteremia (Acute) 82 year old F with a past medical history of chronic back pain, h/o recent acute T8 compressive fracture in December 2017, colon cancer with partial colon resection, admitted on 02/02/18 with intractable back pain and initially managed on [employer] pump but with no pain control. 1. Acute Intractable back pain, s/p bone biopsy, s/p recent Kyphoplasty, POD #2, patient is NOW controlled on Tylenol 1000mg po tid, oxycodone 20mg po tid, dilaudid 1mg q4prn(not been given), Toradol 30mg IV q6 prn, lidoderm patches, flexeril 10mg po tid Plan: Will decrease flexeril to 5mg po tid, decrease Toradol to 15mg IV q6hrly prn, keep tylenol scheduled, keep oxycodone scheduled, dilaudid prn. Consider stopping Toradol tomorrow as patient may not require it, consider stopping also dilaudid if she has not require any more doses, withthe aim of simplifying her drug regimen. Will continue to monitor for respiratory depression. 2. MSSA bacteremia, repeat blood cultures are pending, preliminary Blood cultures growing MSSA, biopsy of back also growing MSSA, 2d-echo negative for endocarditis, on IV cefazolin, other blood cultures sample is pending. 3. Abnormal bone scan, s/p bone biopsy, pathology is pending. 4. History of recurrent fractures,osteoporosis, not on bisphosphonate, on vitamin D and calcium. Needs to have treatment in the outpatient. 5. CAD, s/p stent, on aspirin, statin, isosorbide, beta blockers 6.Hypertension, uncontrolled, secondary to pain, continue metoprolol 7.Thrombocytopenia, improved 8.Hypothyroidism, on levothyroxine 9.DVT PPx - SCDs; off Lovenox for possible procedure Code Visit Inpatient E&M: 53671 Subs Hosp L3
[2018-02-06] MEDS: Aspirin 81 MG TAB.CHEW PO (08:59)
[2018-02-06] MEDS: Isosorbide Mononitrate 30 MG Tablet PO (08:59)
[2018-02-06] MEDS: Lidocaine 5% Patch 2 PATCH TOPICAL (09:00)
[2018-02-06] MEDS: Metoprolol Tartrate 25 MG Tablet PO ×2 (09:01→21:51)
[2018-02-06] MEDS: Calcium (Elemental) 500 MG Tablet 1000 MG PO (10:23)
[2018-02-06] MEDS: Senna/Docusate Sodium 1 Tablet PO (10:24)
[2018-02-06] MEDS: Bisacodyl 5 MG Tablet 10 MG PO (10:25)
--- NOTE | 2018-02-06 10:32 | CASEMGMT ---
Social Work Note Updated by attending physician and ID that the pt will not discharge until cultures come back negative. Maybe tomorrow or Saturday. Informed Dr. Cabrera that [facility] was requesting script be written for tid, not Q8. Script provided and placed in chart. Placed call to Jocelin at [facility] and update on situation. Will f/u with tomorrow, 02/07. Elise Oconnor, STOCK DEALER, AGRICULTURAL SPECIALIST
--- NOTE | 2018-02-06 11:09 | PCM.PN.ID ---
Patient Problems: Active and Suspected Problems Intractable back pain (Acute) Pathologic fracture of vertebra (Suspected) Dehydration (Acute) Abnormal bone scan of thoracic spine (Acute) Thrombocytopenia (Acute) MSSA bacteremia (Acute) Subjective: Severe pain across back yesterday and MRI was done. No fever, pain improved this AM. Family at bedside. - Physical Exam General: Alert, Cooperative, No apparent distress Lungs: Clear to auscultation, Normal air movement Cardiovascular: Regular rate, Regular Rhythm Abdomen: Soft, Non Tender, Non-Distended Skin: No rashes Vital Signs Temp Pulse Resp BP Pulse Ox 98.4 F 75 18 140/68 H 99 02/06/18 09:00 02/06/18 09:01 02/06/18 09:00 02/06/18 09:00 02/06/18 09:00 Oxygen Flow Rate (L/min) 1 Oxygen Delivery Method Nasal Cannula Weight: 62.3 kg Body Mass Index (BMI) 27.7 Intake and Output for Last 24 Hours 02/04/18 02/05/18 02/06/18 23:59 23:59 23:59 Intake Total 3501 / 3501 2075 / 2075 1220 / 1220 Output Total 1570 / 1570 2125 / 2125 1000 / 1000 Balance 1931 / 1931 -50 / -50 220 / 220 Microbiology Past 72 Hours 02/04/18 10:35 Blood Culture - Preliminary Blood Culture (Wb) - Left Hand 02/04/18 08:08 Gram Stain - Final Biopsy - Back Wound Culture - Final Staphylococcus aureus Anaerobic Culture - Preliminary Checking for anaerobes, further studies to follow. 02/03/18 11:15 Blood Culture - Preliminary Blood Culture (Wb) - Right Hand Staphylococcus aureus 02/02/18 23:50 Urine Culture - Final Urine Catheter - Paula Pseudomonas aeroginosa Route of nutrition/ use of supplements: [] Nutritional Intake: [] IV Site: [] Paula Catheter: [] - Assessment/Plan Antibiotics: [] Assessment/Plan: [] Active and Suspected Problems Intractable back pain (Acute) Pathologic fracture of vertebra (Suspected) Dehydration (Acute) Abnormal bone scan of thoracic spine (Acute) Thrombocytopenia (Acute) MSSA bacteremia with multiple spine lesions/compression fracture - (+) osteo/discitis on bone culture. Abx narrowed to cefazolin q8h. Discharge plan would be for picc placement and 8 weeks of iv cefazolin 2gm q8h. Start date of course will be first set of negative bcx, but she continues to turn positive, most recently from 02/03 bcx. Repeat bcx today. If other bcx stays neg, could be candidate for picc and transfer to ECF by tomorrow. Tentative stop date would be 04/02/18. At discharge, weekly bmp, cbc, and esr while on iv abx, fax to [phone]. ID follow-up in 2-3 weeks after discharge. Pseudomonas in Ucx - no urinary symptoms, and no pyuria on UA. Possible contaminant, will monitor. will follow. D/w showcase maker. Rx written for labs and abx.
--- NOTE | 2018-02-06 11:12 | PN.ID_ITS ---
Patient Problems: Active and Suspected Problems Intractable back pain (Acute) Pathologic fracture of vertebra (Suspected) Dehydration (Acute) Abnormal bone scan of thoracic spine (Acute) Thrombocytopenia (Acute) MSSA bacteremia (Acute) Subjective: Severe pain across back yesterday and MRI was done. No fever, pain improved this AM. Family at bedside. - Physical Exam General: Alert, Cooperative, No apparent distress Lungs: Clear to auscultation, Normal air movement Cardiovascular: Regular rate, Regular Rhythm Abdomen: Soft, Non Tender, Non-Distended Skin: No rashes Vital Signs Temp Pulse Resp BP Pulse Ox 98.4 F 75 18 140/68 H 99 02/06/18 09:00 02/06/18 09:01 02/06/18 09:00 02/06/18 09:00 02/06/18 09:00 Oxygen Flow Rate (L/min) 1 Oxygen Delivery Method Nasal Cannula Weight: 62.3 kg Body Mass Index (BMI) 27.7 Intake and Output for Last 24 Hours 02/04/18 02/05/18 02/06/18 23:59 23:59 23:59 Intake Total 3501 / 3501 2075 / 2075 1220 / 1220 Output Total 1570 / 1570 2125 / 2125 1000 / 1000 Balance 1931 / 1931 -50 / -50 220 / 220 Microbiology Past 72 Hours 02/04/18 10:35 Blood Culture - Preliminary Blood Culture (Wb) - Left Hand 02/04/18 08:08 Gram Stain - Final Biopsy - Back Wound Culture - Final Staphylococcus aureus Anaerobic Culture - Preliminary Checking for anaerobes, further studies to follow. 02/03/18 11:15 Blood Culture - Preliminary Blood Culture (Wb) - Right Hand Staphylococcus aureus 02/02/18 23:50 Urine Culture - Final Urine Catheter - Paula Pseudomonas aeroginosa Route of nutrition/ use of supplements: [] Nutritional Intake: [] IV Site: [] Paula Catheter: [] - Assessment/Plan Antibiotics: [] Assessment/Plan: [] Active and Suspected Problems Intractable back pain (Acute) Pathologic fracture of vertebra (Suspected) Dehydration (Acute) Abnormal bone scan of thoracic spine (Acute) Thrombocytopenia (Acute) MSSA bacteremia with multiple spine lesions/compression fracture - (+) osteo/ discitis on bone culture. Abx narrowed to cefazolin q8h. Discharge plan would be for picc placement and 8 weeks of iv cefazolin 2gm q8h. Start date of course will be first set of negative bcx, but she continues to turn positive, most recently from 02/03 bcx. Repeat bcx today. If other bcx stays neg, could be candidate for picc and transfer to ECF by tomorrow. Tentative stop date would be 04/02/18. At discharge, weekly bmp, cbc, and esr while on iv abx, fax to [phone]. ID follow-up in 2-3 weeks after discharge. Pseudomonas in Ucx - no urinary symptoms, and no pyuria on UA. Possible contaminant, will monitor. will follow. D/w egg caser. Rx written for labs and abx.
--- NOTE | 2018-02-06 12:30 | NURSING ---
SPOKE WITH [facility] IN CPS, THEY WILL START I.S. @ 1300 ORDERED 02/04/18
--- NOTE | 2018-02-06 12:32 | NURSING ---
SPOT CHECK POX ON ROOM AIR, PT HAS BEEN OFF X 1 HOUR-93%-[facility] TO START I.S. @ 1300
[2018-02-06] MEDS: Ketorolac 30 MG/ML Syringe 15 MG IV (18:45)
[2018-02-06] MEDS: Atorvastatin Calcium 40 MG Tablet PO (21:52)
[2018-02-07] VITALS (8 sets, daily range): BP systolic 136–172; BP diastolic 64–74; PULSE 74–92; RESP 16–18; TEMP 36.7–37.1; O2SAT 92–99
[2018-02-07] MEDS: Ketorolac 30 MG/ML Syringe 15 MG IV (02:15)
[2018-02-07] MEDS: Levothyroxine 75 MCG Tablet PO (05:03)
[2018-02-07] MEDS: Acetaminophen 500 MG Tablet 1000 MG PO ×3 (05:03→21:09)
[2018-02-07] MEDS: Cefazolin 2 GM in 0.9% Normal Saline 100 ML IV ×3 (05:38→21:09)
--- NOTE | 2018-02-07 06:36 | NURSING ---
Patient sitting up in chiar at this time in an attempt for pain relief and repositioning. Patient moaning and still c/o pain, PRN dilaudid given at this time.
[2018-02-07] MEDS: HYDROmorphone 1 MG/ML Syringe IV (06:37)
[2018-02-07] MEDS: Lactated Ringers 1,000 ML 100 ML IV (07:51)
[2018-02-07] MEDS: Aspirin 81 MG TAB.CHEW PO (07:52)
[2018-02-07] MEDS: Isosorbide Mononitrate 30 MG Tablet PO (07:52)
[2018-02-07] MEDS: Metoprolol Tartrate 25 MG Tablet PO ×2 (07:53→21:09)
[2018-02-07] MEDS: Calcium (Elemental) 500 MG Tablet 1000 MG PO (07:53)
--- NOTE | 2018-02-07 08:51 | PCM.PROGNOTE ---
Patient Problems: Active and Suspected Problems Intractable back pain (Acute) Pathologic fracture of vertebra (Suspected) Dehydration (Acute) Abnormal bone scan of thoracic spine (Acute) Thrombocytopenia (Acute) MSSA bacteremia (Acute) Subjective: Patient is an 82-year-old female admitted to the hospital with complaint of intractable mid back pain secondary to severe vertebral fracture of T8. An OP bone scan had many areas of increased radiopharmaceutical uptake in the thoracic spine, right sacroiliac joint, right posterior ilium, left sacral ala and left posterior lateral sixth rib which were initially thought to be due to metastatic disease but, in hind sight may all be due to ectopic sites of infection. W/U revealed MSSA bacteremia and the bone culture from T8 is + for MSSA. Pathology on the bone showed no acute osteomyelitis but, showed multinucleated giant cell Histiocytes. She is still not sleeping at night and her appetite remains poor. Oxycontin was held last night due to lethargy and then she had to have IV dilaudid for pain. Pain control is improved since admission. She does not feel that the Lidocaine patch is helping. She has no oral medication for Breakthrough pain.....only IV Toradol and IV Dilaudid. She was sitting in a chair when I entered the room. denies constipation, N/V. She is c/o a bad taste in her mouth but denies any sore mouth or painful swallowing. She admits to feeling depressed. She was admitted in the past with MSSA bacteremia and had to go to [facility] for prolonged IV antibiotics and now she has to go to [facility] again. - Physical Exam General: Alert - she is appropriate and asking thoughtful questions. She is pleasant but her affect is flat HEENT: Atraumatic Oral: - - tongue is coated with white brown stuff Neck: Supple, No Nuchal Rigidity, Trachea Midline Lungs: Clear to auscultation, Diminished - in the bases Cardiovascular: Regular rate, Regular Rhythm, Normal S1, Normal S2, No Gallop Abdomen: Bowel Sounds Present, Soft, Non Tender, Non-Distended Extremities: No cyanosis, No edema Skin: No rashes, No breakdown Neurological: Cranial nerves II-XII grossly intact, Neuro grossly intact Psych/Mental Status: Appropriate, Flat Affect Vital Signs Temp Pulse Resp BP Pulse Ox 98.7 F 75 16 141/72 H 97 02/07/18 08:11 02/07/18 08:11 02/07/18 08:11 02/07/18 08:11 02/07/18 08:11 Oxygen Flow Rate (L/min) 2 Oxygen Delivery Method Nasal Cannula Weight: 137 lb 5.568 oz Body Mass Index (BMI) 27.7 Intake and Output for Last 24 Hours 02/05/18 02/06/18 02/07/18 23:59 23:59 23:59 Intake Total 5 / 2075 3482 / 3482 543 / 543 Output Total 2125 / 2125 2150 / 2150 850 / 850 Balance -50 / -50 1332 / 1332 -307 / -307 Microbiology Past 72 Hours 02/04/18 10:35 Blood Culture - Preliminary Blood Culture (Wb) - Left Hand 02/04/18 08:08 Gram Stain - Final Biopsy - Back Wound Culture - Final Staphylococcus aureus Anaerobic Culture - Preliminary Checking for anaerobes, further studies to follow. 02/03/18 11:15 Blood Culture - Preliminary Blood Culture (Wb) - Right Hand Staphylococcus aureus 02/02/18 23:50 Urine Culture - Final Urine Catheter - Paula Pseudomonas aeroginosa Assessment/Plan Active and Suspected Problems Intractable back pain (Acute) Pathologic fracture of vertebra (Suspected) Dehydration (Acute) Abnormal bone scan of thoracic spine (Acute) Thrombocytopenia (Acute) MSSA bacteremia (Acute) Impressions 1. Intractable back pain due to T8 vertebral compression fracture due to osteomyelitis due to MSSA. The recent bone scan on 01/31 is consistent with multiple areas of increased radiopharmaceutical uptake. due to infection or to infection? 2. Vertebral compression fx at T8 - bone path with multinucleated Histiocytes 3. Osteoporosis not on a bisphosphonate or Miacalcin or Evista. She is on Vitamin D and calcium 4. Lumbar central canal stenosis and multilevel foraminal stenosis in the thoracic and the lumbar spine 5. Chronic pain S. - follows with Dr. Edmond. Currently on Oxycontin 15 mg BID, Toradol IV, dilaudid IV, Lidoderm patches, 6. OA 7. CAD with a hx of PTCA and stent in the past 8. HTN 9. GERD 10. thrombocytopenia - resolved and likely due to the acute infection 11. suspected occult malignancy - soft tissue mass at T8 12. First-degree AV block 13. Hyperlipidemia 14. Hypothyroidism 15. dehydration 16. Hypokalemia 17. thrush The T8 fracture is surrounded by a soft tissue mass on most recent MRI. There is paraspinal extension of the mass and retropulsion of the posterior cortex of T8 with spinal canal narrowing. She has not been seen by oncology this admission. supplement Potassium DC the IV fluids start Remeron to treat depression, stimulate appetite and aid in sleep Will Consult Dr. Resendiz to evaluate for possible metastatic bone disease and soft tissue mass surrounding the fracture at T8 - this was discussed with the patient and her dtr Joelle over the phone Code Visit Inpatient E&M: 85807 Init Hosp L3
--- NOTE | 2018-02-07 09:20 | CASEMGMT ---
Social Work Note Updated by attending physician and Infectious Disease Physician that the pt's cultures are still returning positive and a PICC line will not be able to be placed. Both physicians feel that the pt will not be ready until the middle of next week for discharge. Placed call to Jocelin with [facility] and updated. SW to continue to follow and assist with discharge planning. Plan: [facility] for rehabilitation. Elise Oconnor, SALES RECRUITING COORDINATOR, SALES REPRESENTATIVE GRAPHIC ART
[2018-02-07 09:51] LABS: Absolute Lymphocyte Count 0.74 X10^3/ul (0.83-4.51); Absolute Neutrophil Count 6.1 X10^3/uL (2.0-7.7); Basophil# 0.01 X10^3/uL; Basophil% 0.1 % (0-1); Eosinophil# 0.36 X10^3/uL; Eosinophils% 4.6 % (0-5); Hematocrit 36.1 % (37-47); Hemoglobin 11.6 g/dl (12.0-15.0); Lymphocyte # 0.74 X10^3/ul (4.0); Lymphocyte % 9.4 % (19-41); Mean Corp Hgb Conc 32.1 g/gl (32-36); Mean Corpuscular Hgb 31.4 pg (27.0-32.0); Mean Corpuscular Volume 97.6 fL (81-99); Mean Platelet Vol. 9.8 fl (6.2-12.0); Monocyte% 7.6 % (0-10); Neutrophil # 6.12 X10^3/uL (2.7-7.7); Neutrophil % 77.5 % (47-70); Platelet Count 188 K/mm3 (150-450); RBC Distribution Width CV 13.5 % (11.6-14.6); RBC Distribution Width SD 48.5 fl (35.1-43.9); White Blood Count 7.9 K/mm3 (4.4-11.0)
[2018-02-07 09:52] LABS: POSITIVE COUNT NO; POSITIVE DIFFERENTIAL NO; POSITIVE MORPHOLOGY NO
[2018-02-07 10:08] LABS: Anion Gap 7 (5-15); BUN 21 mg/dL (7-18); BUN/Creat Ratio 19.8 RATIO (10-20); Calcium,Total 8.6 mg/dL (8.5-10.1); Chloride 103 mmol/L (98-107); Creatinine, Serum 1.06 mg/dL (0.55-1.02); EST Glomerular Filtration Rate 53 mL/min (>60); Est Glom Filt Rate - Afr Amer 64 mL/min (>60); Estimated Creatinine Clearance 40.24 ml/min; Glucose 127 mg/dL (74-106); Potassium 3.3 mmol/L (3.5-5.1); Sodium Level 140 mmol/L (136-145)
[2018-02-07 10:13] LABS: Erythrocyte Sedimentation Rate 81 mm/hr (0-30)
--- NOTE | 2018-02-07 10:53 | PCM.PN.ID ---
Patient Problems: Active and Suspected Problems Intractable back pain (Acute) Pathologic fracture of vertebra (Suspected) Dehydration (Acute) Abnormal bone scan of thoracic spine (Acute) Thrombocytopenia (Acute) MSSA bacteremia (Acute) Subjective: Pain better now, was able to walk earlier and now up in chair. No fever, no new joint pain, no n/v/d. - Physical Exam General: Alert, Cooperative, No apparent distress Lungs: Clear to auscultation, Normal air movement Cardiovascular: Regular rate, Regular Rhythm, No murmurs Abdomen: Soft, Non Tender, Non-Distended Extremities: No edema Skin: No rashes Vital Signs Temp Pulse Resp BP Pulse Ox 98.7 F 75 16 141/72 H 97 02/07/18 08:11 02/07/18 08:11 02/07/18 08:11 02/07/18 08:11 02/07/18 08:11 Oxygen Flow Rate (L/min) 1 Oxygen Delivery Method Nasal Cannula Weight: 62.3 kg Body Mass Index (BMI) 27.7 Intake and Output for Last 24 Hours 02/05/18 02/06/18 02/07/18 23:59 23:59 23:59 Intake Total 2075 / 2075 3482 / 3482 543 / 543 Output Total 2125 / 2125 2150 / 2150 850 / 850 Balance -50 / -50 1332 / 1332 -307 / -307 Microbiology Past 72 Hours 02/04/18 10:35 Blood Culture - Preliminary Blood Culture (Wb) - Left Hand Staphylococcus aureus 02/04/18 08:08 Gram Stain - Final Biopsy - Back Wound Culture - Final Staphylococcus aureus Anaerobic Culture - Preliminary Checking for anaerobes, further studies to follow. 02/03/18 11:15 Blood Culture - Preliminary Blood Culture (Wb) - Right Hand Staphylococcus aureus 02/02/18 23:50 Urine Culture - Final Urine Catheter - Paula Pseudomonas aeroginosa Laboratory Tests Past 24 Hrs 02/07/18 02/07/18 09:30 09:30 WBC 7.9 RBC 3.70 L Hgb 11.6 L Hct 36.1 L MCV 97.6 MCH 31.4 MCHC 32.1 RDW 13.5 RDW Differential 48.5 H Plt Count 188 MPV 9.8 Immature Gran % (Auto) 0.800 Neut % (Auto) 77.5 H Lymph % (Auto) 9.4 L [place] % (Auto) 7.6 Eos % (Auto) 4.6 Baso % (Auto) 0.1 Absolute Neuts (auto) 6.1 Absolute Lymphs (auto) 0.74 L Total Counted Not Reportable ESR 81 H Sodium 140 Potassium 3.3 L Chloride 103 Carbon Dioxide 30.0 Anion Gap 7 BUN 21 H Creatinine 1.06 H Estim Creat Clear Calc 40.24 Est GFR (MDRD) Af Amer 64 Est GFR (MDRD) Non-Af 53 L BUN/Creatinine Ratio 19.8 Glucose 127 H Calcium 8.6 C-React Prot Ext Range 173.00 H Route of nutrition/ use of supplements: [] Nutritional Intake: [] IV Site: [] Paula Catheter: [] - Assessment/Plan Antibiotics: [] Assessment/Plan: [] Active and Suspected Problems Intractable back pain (Acute) Pathologic fracture of vertebra (Suspected) Dehydration (Acute) Abnormal bone scan of thoracic spine (Acute) Thrombocytopenia (Acute) MSSA bacteremia with multiple spine lesions/compression fracture - (+) osteo/discitis on bone culture. Abx narrowed to cefazolin q8h. Discharge plan would be for picc placement and 8 weeks of iv cefazolin 2gm q8h. Start date of course will be first set of negative bcx, but she continues to turn positive, most recently from / bcx. Repeat bcx today and tomorrow. Ongoing bacteremia likely function of bone as ongoing nidus infection; not clear if there are any surgical options for debridement. Would consider KIMI if still (+) by next week, but even if (+) for endocarditis, I don't think it would climate change risk assessor as she will require long course of iv abx regardless and family not interested in open heart surgery. At discharge, weekly bmp, cbc, and esr while on iv abx, fax to [phone]. ID follow-up in 2-3 weeks after discharge. Pseudomonas in Ucx - no urinary symptoms, and no pyuria on UA. Possible contaminant, will monitor. will follow. D/w outpatient case manager. Rx previously written for labs and abx.
--- NOTE | 2018-02-07 10:57 | PN.ID_ITS ---
Patient Problems: Active and Suspected Problems Intractable back pain (Acute) Pathologic fracture of vertebra (Suspected) Dehydration (Acute) Abnormal bone scan of thoracic spine (Acute) Thrombocytopenia (Acute) MSSA bacteremia (Acute) Subjective: Pain better now, was able to walk earlier and now up in chair. No fever, no new joint pain, no n/v/d. - Physical Exam General: Alert, Cooperative, No apparent distress Lungs: Clear to auscultation, Normal air movement Cardiovascular: Regular rate, Regular Rhythm, No murmurs Abdomen: Soft, Non Tender, Non-Distended Extremities: No edema Skin: No rashes Vital Signs Temp Pulse Resp BP Pulse Ox 98.7 F 75 16 141/72 H 97 02/07/18 08:11 02/07/18 08:11 02/07/18 08:11 02/07/18 08:11 02/07/18 08:11 Oxygen Flow Rate (L/min) 1 Oxygen Delivery Method Nasal Cannula Weight: 62.3 kg Body Mass Index (BMI) 27.7 Intake and Output for Last 24 Hours 02/05/18 02/06/18 02/07/18 23:59 23:59 23:59 Intake Total 2075 / 2075 3482 / 3482 543 / 543 Output Total 2125 / 2125 2150 / 2150 850 / 850 Balance -50 / -50 1332 / 1332 -307 / -307 Microbiology Past 72 Hours 02/04/18 10:35 Blood Culture - Preliminary Blood Culture (Wb) - Left Hand Staphylococcus aureus 02/04/18 08:08 Gram Stain - Final Biopsy - Back Wound Culture - Final Staphylococcus aureus Anaerobic Culture - Preliminary Checking for anaerobes, further studies to follow. 02/03/18 11:15 Blood Culture - Preliminary Blood Culture (Wb) - Right Hand Staphylococcus aureus 02/02/18 23:50 Urine Culture - Final Urine Catheter - Paula Pseudomonas aeroginosa Laboratory Tests Past 24 Hrs 02/07/18 02/07/18 09:30 09:30 WBC 7.9 RBC 3.70 L Hgb 11.6 L Hct 36.1 L MCV 97.6 MCH 31.4 MCHC 32.1 RDW 13.5 RDW Differential 48.5 H Plt Count 188 MPV 9.8 Immature Gran % (Auto) 0.800 Neut % (Auto) 77.5 H Lymph % (Auto) 9.4 L [place] % (Auto) 7.6 Eos % (Auto) 4.6 Baso % (Auto) 0.1 Absolute Neuts (auto) 6.1 Absolute Lymphs (auto) 0.74 L Total Counted Not Reportable ESR 81 H Sodium 140 Potassium 3.3 L Chloride 103 Carbon Dioxide 30.0 Anion Gap 7 BUN 21 H Creatinine 1.06 H Estim Creat Clear Calc 40.24 Est GFR (MDRD) Af Amer 64 Est GFR (MDRD) Non-Af 53 L BUN/Creatinine Ratio 19.8 Glucose 127 H Calcium 8.6 C-React Prot Ext Range 173.00 H Route of nutrition/ use of supplements: [] Nutritional Intake: [] IV Site: [] Paula Catheter: [] - Assessment/Plan Antibiotics: [] Assessment/Plan: [] Active and Suspected Problems Intractable back pain (Acute) Pathologic fracture of vertebra (Suspected) Dehydration (Acute) Abnormal bone scan of thoracic spine (Acute) Thrombocytopenia (Acute) MSSA bacteremia with multiple spine lesions/compression fracture - (+) osteo/ discitis on bone culture. Abx narrowed to cefazolin q8h. Discharge plan would be for picc placement and 8 weeks of iv cefazolin 2gm q8h. Start date of course will be first set of negative bcx, but she continues to turn positive, most recently from / bcx. Repeat bcx today and tomorrow. Ongoing bacteremia likely function of bone as ongoing nidus infection; not clear if there are any surgical options for debridement. Would consider KIMI if still (+) by next week , but even if (+) for endocarditis, I don't think it would electronic data interchange specialist as she will require long course of iv abx regardless and family not interested in open heart surgery. At discharge, weekly bmp, cbc, and esr while on iv abx, fax to [phone]. ID follow-up in 2-3 weeks after discharge. Pseudomonas in Ucx - no urinary symptoms, and no pyuria on UA. Possible contaminant, will monitor. will follow. D/w business case analyst. Rx previously written for labs and abx.
--- NOTE | 2018-02-07 12:49 | ONC.CON.INP2 ---
- Problem List (1) Bone lesion Status: Acute (2) Intractable back pain Status: Acute (3) Pathologic fracture of vertebra Status: Acute Qualifiers: Pathology associated with fracture: unspecified disease Consult Referring Physician: Hospitalist service Consult Results: Multiple bone lesions Subjective Date of Service:: 02/07/18 Chief Complaint: Back pain History of Present Illness: Patient is an 82-year-old female with a past medical history notable for colon cancer treated 15 years ago with no known recurrence, chronic back pain due to degenerative disease of the spine and spinal stenosis who experienced increasing back pain in December 2017 following a fall. December 20, 2017 and MRI of the thoracic spine reported an acute T8 vertebral body compression fracture which may be pathologic. Abnormalities were also noted in T9 vertebral body, T7 and T8 spinous processes again may be related to metastatic disease or trauma. A bone scan January reported 1. The increase in radiopharmaceutical concentration identified in the thoracic spine, right sacroiliac joint, right posterior ilium, left sacral ala, left posterior lateral sixth rib likely represent probable osseous metastatic disease. 2. Increased uptake visualized in the right proximal humeral metaphysis is consistent with trauma-fracture. 3. Degenerative arthritis appears expressed in the bilateral shoulders, right midfoot, left hand, right wrist, second and fifth lumbar vertebra, the posterior sacrum. Patient was hospitalized February 02 with intractable back pain, Blood cultures showed staph aureus. On February 04, 2018 she underwent T8 kyphoplasty and biopsy. Final pathology report did acute osteomyelitis and microbiology reported staph aureus again. It appears that the patient's pain has decreased but with the use of increasing doses of narcotic analgesics. 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) Shoulder pain, left (Chronic) Chronic pain (Chronic) Spinal stenosis (Chronic) Osteoarthritis (Chronic) Coronary artery disease (Chronic) Low back pain (Chronic) Hypertension (Chronic) GERD (gastroesophageal reflux disease) (Chronic) Lumbar spinal stenosis (Chronic) Past Medical/Surgical History: Past Medical History - Most Recent Inpatient Visit Past Medical History Start: 02/02/18 20:30 Text: Status: Complete Freq: ONCE Protocol: Document 02/02/18 20:30 JANE (Rec: 02/02/18 20:38 CLK [id number]) BMI Required to complete PMH What is Patient's BMI 27.1 Past Medical History Unable History Recalled Yes Query Text:Pt Unable/Family Not Present Neurologic Medical History Hx Stroke/TIA No Hx Dementia/Alzheimer's No Hx Parkinson's Disease No Hx Seizures No Hx Multiple Sclerosis No Hx Migraines No Cardiac Medical History VTE Present on Admission No Hx of Deep Vein Thrombosis/VTE/PE No Hx Hypertension Yes: on meds Hx Chest Pain/Angina No Hx Heart Attack No Hx Cardiac Surgery/Stents/Etc. Yes: stent placed in 2010 Hx Heart Failure No Hx Pacemaker/AICD No Hx Irregular Heartbeat and/or Afib No: PVC'S Hx Anticoagulant Therapy Yes: aspirin Query Text:(Coumadin, Aspirin, Plavix, Xarelto, etc.) Hx Pain in Legs when Walking/Leg Cramps No Respiratory Medical History Hx COPD No Hx Emphysema No Hx Smoking No Smoking Status Never smoker Hx Smoking Exposure Yes Hx Tobacco Use in last 12 months No Hx of Pipe Smoking No Hx Sleep Apnea No CPAP No BIPAP No Do you snore loudly (louder than talking No or can be heard through closed doors)? Do you often feel tired/ fatigued/ No sleepy during daytime? Has anyone observed you stop breathing No during sleep? STOP Results Negative GI Medical History Hx Ulcer No Hx Hepatitis No Hx Cirrhosis No Hx GI Bleed Yes: 2 years ago Hx Unplanned Weight Loss No Genitourinary Medical History Indwelling Catheter in Place on Arrival/ No Admission Hx Renal Disease No Hx Dialysis No Musculoskeletal History Hx Arthritis Yes: generalized, OA Hx Rheumatoid Arthritis No Endocrine Medical History Hx Diabetes No Hx Thyroid Disease Yes: on levothyroxine Hematologic Medical History Hx of Blood Transfusion Yes Hx of Transfusion in last 3 Months No Ever experience any problems with No transfusion(s)? Hx of Preganancy in last 3 Months N/A Nurse Filling Out Transfusion & CKELLY Questions: Date: 02/02/18 Time: 20:37 Psycho/Social Medical History Hx Depression No Hx Anxiety No Hx Behavior Disorder No Hx Alcohol Use No Hx Substance Use No Other Medical History Hx Blood Disorders No Hx Anemia No Hx Cancer Yes: colon CA around 1999 Hx Drug Resistant Organism No: MSSA Wound/Pressure Injury Present on Arrival No /Admission Query Text:If yes, chart assessment in Shift/Clinical Findings Central Line/PICC/VAD Present on Arrival No /Admission Antibiotics within last 7 days? No Methicillin Resistant Staphylococcus aureus Screening Active MRSA No Risk for Readmission Number of Risk Factors 5 At Risk for Readmission Patient is At Risk For Readmission Patient is eligible for Call Back Y Maternal Family History: No pertinent history Paternal Family History: No pertinent history, - - Social History Lives: Alone Smoking Status: Never smoker Tobacco Use: Non-smoker Alcohol: None Drugs: None Allergies/Adverse Reactions: Allergy/AdvReac Type Severity Reaction Status Date / Time No Known Allergies Allergy Verified 02/01/18 16:18 Home Medications Medication Instructions Recorded Atorvastatin Calcium [Lipitor] 40 mg PO QHS 12/19/13 Isosorbide Mononitrate [Imdur] 30 mg PO DAILY 12/19/13 Levothyroxine [Synthroid] 75 mcg PO DAILY 12/19/13 Metoprolol Tartrate [Lopressor 25 mg PO BID #60 tablet 01/20/16 (beta rafael)] Aspirin 81 mg PO DAILY 03/07/17 Oxycodone HCl/Acetaminophen 1 tab PO Q4H PRN PRN #22 tab 02/01/18 [Percocet 5/325] TraMADol [Ultram (G)] 50 mg PO Q6H PRN PRN 02/01/18 Calcium Carbonate [Calcium] 1,200 mg PO DAILY 02/02/18 Review of Systems Constitutional:: Reports: Weakness, Fatigue. Denies: Fever, Sweats, Weight loss, Appetite change, Chills Cardiovascular:: Denies: Chest pain, Palpitations, Dyspnea on exertion, Orthopnea, PND, Shortness of breath Respiratory: Denies: Cough, Hemoptysis, Shortness of Breath, Wheezing Gastrointestinal:: Reports: Constipation - Required use of laxatives and had one episode of stool incontinence February 07 that she attributes to not being able to get to the bathroom fast enough after the laxatives. Denies: Abdominal pain, Nausea, Vomiting, Diarrhea, Hematochezia Genitourinary: Reports: Incontinence - Chronic. Denies: Dysuria, Hematuria, Flank pain Musculoskeletal:: Reports: Back pain - The pain is localized to the mid lower thoracic area no radiation. Denies: Myalgia, Arthralgia Skin: Denies: Rash, Skin Changes, Wounds Neurological:: Reports: Frequent falls, - - Patient overall feels weak but unaware of any focal lower extremities weakness or paresthesias. Denies: Headache, Dizziness, Visual changes, Tinnitus, Hearing loss Psychiatric: Denies: Anxiety, Depression, Homicidal Ideations, Suicidal Ideations Vital Signs Height 4 ft 11 in Weight: 62.3 kg Weight in Pounds 137.3 lbs Pulse Ox 97 Temperature 98.7 F Pulse Rate 75 Respiratory Rate 16 Blood Pressure [BP] 129/59 Blood Pressure 141/72 Blood Pressure Position [BP] Semi-Fowlers Blood Pressure Position Sitting - Physical Exam General: Alert, Oriented x3, No apparent distress, - - Elderly and frail, did not appear toxic ECOG 3 Thin but not cachectic HEENT: Atraumatic, PERRLA, EOMI, Normocephalic Oropharynx:: Dry mucosa Neck:: Supple, Trachea midline. Negative for: JVD, bilateral Cardiac:: Regular rate, Regular rhythm, Normal S1, Normal S2. Negative for: Murmur Lungs: Clear to auscultation, Excusion symmetrical. Negative for: Rhonchi, Wheezes Abdomen:: Soft, Non-tender, Non-distended. Negative for: Hepatosplenomegaly Extremities:: Negative for: Cyanosis, Edema Neurological: Neuro grossly intact - Was told to move all extremities to command with no focal lateralizing signs Skin:: Negative for: Lesions, Rash, Petechiae, Ecchymosis Psychiatric:: Appropriate affect, Euthymic Lymphatics:: Negative for: Cervical lymphadenopathy, Supraclavicular lymphadenopathy, Axillary lymphadenopathy Laboratory Data: Microbiology 02/04/18 08:08 Gram Stain - Final Biopsy - Back Wound Culture - Final Staphylococcus aureus Anaerobic Culture - Final No anaerobic bacteria isolated. 02/04/18 10:35 Blood Culture - Preliminary Blood Culture (Wb) - Left Hand Staphylococcus aureus 02/03/18 11:15 Blood Culture - Preliminary Blood Culture (Wb) - Right Hand Staphylococcus aureus 02/02/18 23:50 Urine Culture - Final Urine Catheter - Paula Pseudomonas aeroginosa Laboratory Tests 02/07/18 02/07/18 Range/Units 09:30 09:30 WBC 7.9 (4.4-11.0) K/mm3 RBC 3.70 L (4.2-5.4) M/mm3 Hgb 11.6 L (12.0-15.0) g/dl Hct 36.1 L (37-47) % MCV 97.6 (81-99) fL MCH 31.4 (27.0-32.0) pg MCHC 32.1 (32-36) g/gl RDW 13.5 (11.6-14.6) % RDW Differential 48.5 H (35.1-43.9) fl Plt Count 188 (150-450) K/mm3 MPV 9.8 (6.2-12.0) fl Immature Gran % (Auto) 0.800 (0.0-0.9) % Neut % (Auto) 77.5 H (47-70) % Lymph % (Auto) 9.4 L (19-41) % [place] % (Auto) 7.6 (0-10) % Eos % (Auto) 4.6 (0-5) % Baso % (Auto) 0.1 (0-1) % Absolute Neuts (auto) 6.1 (2.0-7.7) X10^3/uL Absolute Lymphs (auto) 0.74 L (0.83-4.51) X10^3/ul Total Counted Not Reportable ESR 81 H (0-30) mm/hr Sodium 140 (136-145) mmol/L Potassium 3.3 L (3.5-5.1) mmol/L Chloride 103 (98-107) mmol/L Carbon Dioxide 30.0 (21.0-32.0) mmol/L Anion Gap 7 (5-15) BUN 21 H (7-18) mg/dL Creatinine 1.06 H (0.55-1.02) mg/dL Estim Creat Clear Calc 40.24 ml/min Est GFR (MDRD) Af Amer 64 (>60) mL/min Est GFR (MDRD) Non-Af 53 L (>60) mL/min BUN/Creatinine Ratio 19.8 (10-20) RATIO Glucose 127 H (74-106) mg/dL Calcium 8.6 (8.5-10.1) mg/dL C-React Prot Ext Range 173.00 H (0.0-3.0) mg/L Diagnostic Data: Diagnostic Data I personally reviewed the MRI images of the thoracic spine of February 03 and concur with the report Thoracic Spine X-Ray 03/06/18 07:30 IMPRESSION: Fluoroscopic views were obtained for intraoperative localization. Please refer to intraoperative report. Electronically Signed: Elai Damico MD at 10:12 EST Tel , Service support , Lumbar Spine MRI 02/05/18 13:57 IMPRESSION: Scoliosis and severe multilevel degenerative changes at the thoracic spine with multilevel spinal canal and neuroforaminal stenosis as detailed above. at 1759 Reported and signed by: Evelina Valencia MD Electronically Signed: Evelina Valencia MD at 16:58 EST Tel , Service support , Thoracic Spine MRI 02/05/18 13:58 IMPRESSION: Study markedly limited due to motion. Study appears essentially unchanged compared to February 03, 2018 with a mass centered at the T8 vertebral body with pathologic compression fracture, suggestive of metastatic disease. Paraspinal extension of the mass and retropulsion of the posterior cortex with spinal canal narrowing. Stable pulmonary edema in T7 vertebral body, may be due to microcompressions and/or extension of the mass lesion. at 1752 Reported and signed by: Evelina Valencia MD Electronically Signed: Evelina Valencia MD at 16:51 EST Tel , Service support , Assessment and Plan 82-year-old female with remote history (15 years) of colon cancer, severe degenerative disease of the spine with spinal stenosis chronic with acute increase in back pain December 2017 after an accidental fall with an acute compression fracture of T8. MRI and bone scan imaging show lesions that suggest a possible underlying metastatic disease with pathologic fractures complicated with biopsy and culture-proven osteomyelitis. The patient's pain has required increasing doses of narcotic analgesia. She is on antibiotics for staph osteomyelitis and bacteremia. MRI February 03 though limited study is concerning for a possible central mass at the T8 level with paraspinal extension and retropulsion of the posterior vertex and spinal canal narrowing. I advice a spinal surgery evaluation for possible decompression and obtaining more tissue for definitive diagnosis. Impression and recommendation discussed with patient and her family and Dr. Castellano Medications: Prescriptions This Visit Medication Instructions Recorded Calcium Carbonate [Calcium] 1,200 mg PO DAILY 02/02/18 Medications Added to Medication List This Visit Category Date Time Status Celecoxib [Celebrex] Med 02/07/18 10:00 Active 100 mg PO BID Mirtazapine [Remeron] Med 02/07/18 22:00 Active 15 mg PO QHS Nystatin Med 02/07/18 14:00 Active 500,000 unit PO 4X/DAY Oxycodone CR [Oxycontin] Med 02/07/18 22:00 Active 15 mg PO BID Oxycodone [Oxyir] Med 02/07/18 08:47 Active 5 mg PO Q4H PRN PRN Potassium Chloride [K-Dur] Med 02/07/18 12:00 Active 20 meq PO Q4H Primary Care Provider: Jon Quiroz Referring Provider:
--- NOTE | 2018-02-07 12:59 | CON.PCM_ITS ---
- Problem List (1) Bone lesion Status: Acute (2) Intractable back pain Status: Acute (3) Pathologic fracture of vertebra Status: Acute Qualifiers: Pathology associated with fracture: unspecified disease Consult Referring Physician: Hospitalist service Consult Results: Multiple bone lesions Subjective Date of Service:: 02/07/18 Chief Complaint: Back pain History of Present Illness: Patient is an 82-year-old female with a past medical history notable for colon cancer treated 15 years ago with no known recurrence, chronic back pain due to degenerative disease of the spine and spinal stenosis who experienced increasing back pain in December 2017 following a fall. December 20, 2017 and MRI of the thoracic spine reported an acute T8 vertebral body compression fracture which may be pathologic. Abnormalities were also noted in T9 vertebral body, T7 and T8 spinous processes again may be related to metastatic disease or trauma. A bone scan January reported 1. The increase in radiopharmaceutical concentration identified in the thoracic spine, right sacroiliac joint, right posterior ilium, left sacral ala, left posterior lateral sixth rib likely represent probable osseous metastatic disease. 2. Increased uptake visualized in the right proximal humeral metaphysis is consistent with trauma-fracture. 3. Degenerative arthritis appears expressed in the bilateral shoulders, right midfoot, left hand, right wrist, second and fifth lumbar vertebra, the posterior sacrum. Patient was hospitalized February 02 with intractable back pain, Blood cultures showed staph aureus. On February 04, 2018 she underwent T8 kyphoplasty and biopsy. Final pathology report did acute osteomyelitis and microbiology reported staph aureus again. It appears that the patient's pain has decreased but with the use of increasing doses of narcotic analgesics. Past Medical History: Chronic Problems Fracture of surgical neck of right humerus (Chronic) Benign essential HTN (Chronic) HLD (hyperlipidemia) (Chronic) Hypothyroidism (Chronic) S/P total knee replacement (Chronic) 01/09/16, [facility] left, Dr Poole AV block, 1st degree (Chronic) Shoulder pain, left (Chronic) Chronic pain (Chronic) Spinal stenosis (Chronic) Osteoarthritis (Chronic) Coronary artery disease (Chronic) Low back pain (Chronic) Hypertension (Chronic) GERD (gastroesophageal reflux disease) (Chronic) Lumbar spinal stenosis (Chronic) Past Medical/Surgical History: Past Medical History - Most Recent Inpatient Visit Past Medical History Start: 02/02/18 20: 30 Text: Status: Complete Freq: ONCE Protocol: Document 02/02/18 20:30 JANE (Rec: 02/02/18 20:38 CLK [id number]) BMI Required to complete PMH What is Patient's BMI 27.1 Past Medical History Unable History Recalled Yes Query Text:Pt Unable/Family Not Present Neurologic Medical History Hx Stroke/TIA No Hx Dementia/Alzheimer's No Hx Parkinson's Disease No Hx Seizures No Hx Multiple Sclerosis No Hx Migraines No Cardiac Medical History VTE Present on Admission No Hx of Deep Vein Thrombosis/VTE/PE No Hx Hypertension Yes: on meds Hx Chest Pain/Angina No Hx Heart Attack No Hx Cardiac Surgery/Stents/Etc. Yes: stent placed in 2010 Hx Heart Failure No Hx Pacemaker/AICD No Hx Irregular Heartbeat and/or Afib No: PVC'S Hx Anticoagulant Therapy Yes: aspirin Query Text:(Coumadin, Aspirin, Plavix, Xarelto, etc.) Hx Pain in Legs when Walking/Leg Cramps No Respiratory Medical History Hx COPD No Hx Emphysema No Hx Smoking No Smoking Status Never smoker Hx Smoking Exposure Yes Hx Tobacco Use in last 12 months No Hx of Pipe Smoking No Hx Sleep Apnea No CPAP No BIPAP No Do you snore loudly (louder than talking No or can be heard through closed doors)? Do you often feel tired/ fatigued/ No sleepy during daytime? Has anyone observed you stop breathing No during sleep? STOP Results Negative GI Medical History Hx Ulcer No Hx Hepatitis No Hx Cirrhosis No Hx GI Bleed Yes: 2 years ago Hx Unplanned Weight Loss No Genitourinary Medical History Indwelling Catheter in Place on Arrival/ No Admission Hx Renal Disease No Hx Dialysis No Musculoskeletal History Hx Arthritis Yes: generalized, OA Hx Rheumatoid Arthritis No Endocrine Medical History Hx Diabetes No Hx Thyroid Disease Yes: on levothyroxine Hematologic Medical History Hx of Blood Transfusion Yes Hx of Transfusion in last 3 Months No Ever experience any problems with No transfusion(s)? Hx of Preganancy in last 3 Months N/A Nurse Filling Out Transfusion & CKELLY Questions: Date: 02/02/18 Time: 20:37 Psycho/Social Medical History Hx Depression No Hx Anxiety No Hx Behavior Disorder No Hx Alcohol Use No Hx Substance Use No Other Medical History Hx Blood Disorders No Hx Anemia No Hx Cancer Yes: colon CA around 1999 Hx Drug Resistant Organism No: MSSA Wound/Pressure Injury Present on Arrival No /Admission Query Text:If yes, chart assessment in Shift/Clinical Findings Central Line/PICC/VAD Present on Arrival No /Admission Antibiotics within last 7 days? No Methicillin Resistant Staphylococcus aureus Screening Active MRSA No Risk for Readmission Number of Risk Factors 5 At Risk for Readmission Patient is At Risk For Readmission Patient is eligible for Call Back Y Maternal Family History: No pertinent history Paternal Family History: No pertinent history, - - Social History Lives: Alone Smoking Status: Never smoker Tobacco Use: Non-smoker Alcohol: None Drugs: None Allergies/Adverse Reactions: Allergy/AdvReac Type Severity Reaction Status Date / Time No Known Allergies Allergy Verified 02/01/18 16:18 Home Medications Medication Instructions Recorded Atorvastatin Calcium [Lipitor] 40 mg PO QHS 12/19/13 Isosorbide Mononitrate [Imdur] 30 mg PO DAILY 12/19/13 Levothyroxine [Synthroid] 75 mcg PO DAILY 12/19/13 Metoprolol Tartrate [Lopressor 25 mg PO BID #60 tablet 01/20/16 (beta rafael)] Aspirin 81 mg PO DAILY 03/07/17 Oxycodone HCl/Acetaminophen 1 tab PO Q4H PRN PRN #22 tab 02/01/18 [Percocet 5/325] TraMADol [Ultram (G)] 50 mg PO Q6H PRN PRN 02/01/18 Calcium Carbonate [Calcium] 1,200 mg PO DAILY 02/02/18 Review of Systems Constitutional:: Reports: Weakness, Fatigue. Denies: Fever, Sweats, Weight loss , Appetite change, Chills Cardiovascular:: Denies: Chest pain, Palpitations, Dyspnea on exertion, Orthopnea, PND, Shortness of breath Respiratory: Denies: Cough, Hemoptysis, Shortness of Breath, Wheezing Gastrointestinal:: Reports: Constipation - Required use of laxatives and had one episode of stool incontinence February 07 that she attributes to not being able to get to the bathroom fast enough after the laxatives. Denies: Abdominal pain , Nausea, Vomiting, Diarrhea, Hematochezia Genitourinary: Reports: Incontinence - Chronic. Denies: Dysuria, Hematuria, Flank pain Musculoskeletal:: Reports: Back pain - The pain is localized to the mid lower thoracic area no radiation. Denies: Myalgia, Arthralgia Skin: Denies: Rash, Skin Changes, Wounds Neurological:: Reports: Frequent falls, - - Patient overall feels weak but unaware of any focal lower extremities weakness or paresthesias. Denies: Headache, Dizziness, Visual changes, Tinnitus, Hearing loss Psychiatric: Denies: Anxiety, Depression, Homicidal Ideations, Suicidal Ideations Vital Signs Height 4 ft 11 in Weight: 62.3 kg Weight in Pounds 137.3 lbs Pulse Ox 97 Temperature 98.7 F Pulse Rate 75 Respiratory Rate 16 Blood Pressure [BP] 129/59 Blood Pressure 141/72 Blood Pressure Position [BP] Semi-Fowlers Blood Pressure Position Sitting - Physical Exam General: Alert, Oriented x3, No apparent distress, - - Elderly and frail, did not appear toxic ECOG 3 Thin but not cachectic HEENT: Atraumatic, PERRLA, EOMI, Normocephalic Oropharynx:: Dry mucosa Neck:: Supple, Trachea midline. Negative for: JVD, bilateral Cardiac:: Regular rate, Regular rhythm, Normal S1, Normal S2. Negative for: Murmur Lungs: Clear to auscultation, Excusion symmetrical. Negative for: Rhonchi, Wheezes Abdomen:: Soft, Non-tender, Non-distended. Negative for: Hepatosplenomegaly Extremities:: Negative for: Cyanosis, Edema Neurological: Neuro grossly intact - Was told to move all extremities to command with no focal lateralizing signs Skin:: Negative for: Lesions, Rash, Petechiae, Ecchymosis Psychiatric:: Appropriate affect, Euthymic Lymphatics:: Negative for: Cervical lymphadenopathy, Supraclavicular lymphadenopathy, Axillary lymphadenopathy Laboratory Data: Microbiology 02/04/18 08:08 Gram Stain - Final Biopsy - Back Wound Culture - Final Staphylococcus aureus Anaerobic Culture - Final No anaerobic bacteria isolated. 02/04/18 10:35 Blood Culture - Preliminary Blood Culture (Wb) - Left Hand Staphylococcus aureus 02/03/18 11:15 Blood Culture - Preliminary Blood Culture (Wb) - Right Hand Staphylococcus aureus 02/02/18 23:50 Urine Culture - Final Urine Catheter - Paula Pseudomonas aeroginosa Laboratory Tests 3 02/07/18 02/07/18 Range/Units 09:30 09:30 WBC 7.9 (4.4-11.0) K/mm3 RBC 3.70 L (4.2-5.4) M/mm3 Hgb 11.6 L (12.0-15.0) g/dl Hct 36.1 L (37-47) % MCV 97.6 (81-99) fL MCH 31.4 (27.0-32.0) pg MCHC 32.1 (32-36) g/gl RDW 13.5 (11.6-14.6) % RDW Differential 48.5 H (35.1-43.9) fl Plt Count 188 (150-450) K/mm3 MPV 9.8 (6.2-12.0) fl Immature Gran % (Auto) 0.800 (0.0-0.9) % Neut % (Auto) 77.5 H (47-70) % Lymph % (Auto) 9.4 L (19-41) % [place] % (Auto) 7.6 (0-10) % Eos % (Auto) 4.6 (0-5) % Baso % (Auto) 0.1 (0-1) % Absolute Neuts (auto) 6.1 (2.0-7.7) X10^3/uL Absolute Lymphs (auto) 0.74 L (0.83-4.51) X10^3/ul Total Counted Not Reportable ESR 81 H (0-30) mm/hr Sodium 140 (136-145) mmol/L Potassium 3.3 L (3.5-5.1) mmol/L Chloride 103 (98-107) mmol/L Carbon Dioxide 30.0 (21.0-32.0) mmol/L Anion Gap 7 (5-15) BUN 21 H (7-18) mg/dL Creatinine 1.06 H (0.55-1.02) mg/dL Estim Creat Clear Calc 40.24 ml/min Est GFR (MDRD) Af Amer 64 (>60) mL/min Est GFR (MDRD) Non-Af 53 L (>60) mL/min BUN/Creatinine Ratio 19.8 (10-20) RATIO Glucose 127 H (74-106) mg/dL Calcium 8.6 (8.5-10.1) mg/dL C-React Prot Ext Range 173.00 H (0.0-3.0) mg/L Diagnostic Data: Diagnostic Data I personally reviewed the MRI images of the thoracic spine of February 03 and concur with the report Thoracic Spine X-Ray 02/04/18 07:30 IMPRESSION: Fluoroscopic views were obtained for intraoperative localization. Please refer to intraoperative report. Electronically Signed: Elia Damico MD at 10:12 EST Tel , Service support , Lumbar Spine MRI 02/05/18 13:57 IMPRESSION: Scoliosis and severe multilevel degenerative changes at the thoracic spine with multilevel spinal canal and neuroforaminal stenosis as detailed above. at 1759 Reported and signed by: Evelina Valencia MD Electronically Signed: Evelina Valencia MD at 16:58 EST Tel , Service support , Thoracic Spine MRI 02/05/18 13:58 IMPRESSION: Study markedly limited due to motion. Study appears essentially unchanged compared to February 03, 2018 with a mass centered at the T8 vertebral body with pathologic compression fracture, suggestive of metastatic disease. Paraspinal extension of the mass and retropulsion of the posterior cortex with spinal canal narrowing. Stable pulmonary edema in T7 vertebral body, may be due to microcompressions and/or extension of the mass lesion. at 1752 Reported and signed by: Evelina Valencia MD Electronically Signed: Evelina Valencia MD at 16:51 EST Tel , Service support , Assessment and Plan 82-year-old female with remote history (15 years) of colon cancer, severe degenerative disease of the spine with spinal stenosis chronic with acute increase in back pain December 2017 after an accidental fall with an acute compression fracture of T8. MRI and bone scan imaging show lesions that suggest a possible underlying metastatic disease with pathologic fractures complicated with biopsy and culture -proven osteomyelitis. The patient's pain has required increasing doses of narcotic analgesia. She is on antibiotics for staph osteomyelitis and bacteremia. MRI February 03 though limited study is concerning for a possible central mass at the T8 level with paraspinal extension and retropulsion of the posterior vertex and spinal canal narrowing. I advice a spinal surgery evaluation for possible decompression and obtaining more tissue for definitive diagnosis. Impression and recommendation discussed with patient and her family and Dr. Castellano Medications: Prescriptions This Visit Medication Instructions Recorded Calcium Carbonate [Calcium] 1,200 mg PO DAILY 02/02/18 Medications Added to Medication List This Visit Category Date Time Status Celecoxib [Celebrex] Med 02/07/18 10:00 Active 100 mg PO BID Mirtazapine [Remeron] Med 02/07/18 22:00 Active 15 mg PO QHS Nystatin Med 02/07/18 14:00 Active 500,000 unit PO 4X/DAY Oxycodone CR [Oxycontin] Med 02/07/18 22:00 Active 15 mg PO BID Oxycodone [Oxyir] Med 02/07/18 08:47 Active 5 mg PO Q4H PRN PRN Potassium Chloride [K-Dur] Med 02/07/18 12:00 Active 20 meq PO Q4H Primary Care Provider: Jon Quiroz Referring Provider:
[2018-02-07] MEDS: oxyCODONE 5 MG Tablet PO ×2 (14:36→17:39)
[2018-02-07] MEDS: NYSTATIN 500,000 UNIT/5 ML UDC 500000 UNIT PO ×2 (17:40→21:08)
[2018-02-07] MEDS: Mirtazapine 15 MG Tablet PO (21:08)
[2018-02-07] MEDS: oxyCODONE CR 15 MG Tablet PO (21:08)
[2018-02-07] MEDS: Atorvastatin Calcium 40 MG Tablet PO (21:09)
[2018-02-07] MEDS: Celecoxib 100 MG Capsule PO (21:10)
[2018-02-08 03:15] VITALS: BP 136/64; PULSE 54; RESP 16; RESP 18; TEMP 36.7; O2SAT 98
[2018-02-08] MEDS: Levothyroxine 75 MCG Tablet PO (05:28)
[2018-02-08] MEDS: Acetaminophen 500 MG Tablet 1000 MG PO (05:28)
[2018-02-08] MEDS: Cefazolin 2 GM in 0.9% Normal Saline 100 ML IV (05:29)
[2018-02-08 06:50] LABS: Anion Gap 6 (5-15); BUN 19 mg/dL (7-18); BUN/Creat Ratio 19.7 RATIO (10-20); Calcium,Total 8.6 mg/dL (8.5-10.1); Chloride 104 mmol/L (98-107); Creatinine, Serum 0.97 mg/dL (0.55-1.02); EST Glomerular Filtration Rate 59 mL/min (>60); Est Glom Filt Rate - Afr Amer 71 mL/min (>60); Estimated Creatinine Clearance 43.98 ml/min; Glucose 82 mg/dL (74-106); Magnesium 1.9 mg/dL (1.6-2.6); Potassium 4.3 mmol/L (3.5-5.1); Sodium Level 141 mmol/L (136-145)
[2018-02-08 07:13] VITALS: O2SAT 97
[2018-02-08] MEDS: oxyCODONE 5 MG Tablet PO (08:52)
[2018-02-08] MEDS: Aspirin 81 MG TAB.CHEW PO (08:53)
[2018-02-08 09:00] VITALS: PULSE 68; RESP 18
[2018-02-08 09:04] VITALS: BP 147/76; PULSE 68; RESP 16; TEMP 37; O2SAT 97
[2018-02-08] MEDS: 0.9% NaCl Peripheral Flush Adult/Peds IV ×2 (09:11→13:31)
[2018-02-08] MEDS: HYDROmorphone 1 MG/ML Syringe IV ×2 (09:11→13:31)
[2018-02-08] MEDS: Celecoxib 100 MG Capsule PO (10:38)
[2018-02-08] MEDS: Isosorbide Mononitrate 30 MG Tablet PO (10:39)
[2018-02-08] MEDS: Bisacodyl 5 MG Tablet 10 MG PO (10:39)
[2018-02-08] MEDS: Calcium (Elemental) 500 MG Tablet 1000 MG PO (10:40)
[2018-02-08] MEDS: NYSTATIN 500,000 UNIT/5 ML UDC 500000 UNIT PO (10:40)
[2018-02-08 10:41] VITALS: PULSE 88
[2018-02-08] MEDS: Metoprolol Tartrate 25 MG Tablet PO (10:41)
[2018-02-08] MEDS: oxyCODONE CR 15 MG Tablet PO (10:48)
[2018-02-08] MEDS: Senna/Docusate Sodium 1 Tablet PO (10:55)
--- NOTE | 2018-02-08 11:08 | DS.PCM_ITS ---
Discharge Date and Diagnosis - Problem List Patient Problems: Active and Suspected Problems Intractable back pain (Acute) Pathologic fracture of vertebra (Acute) Dehydration (Acute) Abnormal bone scan of thoracic spine (Acute) Thrombocytopenia (Acute) MSSA bacteremia (Acute) Date of Admission: 02/02/18 Date of Discharge: 02/08/18 - Primary Discharge Diagnosis Active and Suspected Problems Intractable back pain (Acute) Pathologic fracture of vertebra (Acute) Dehydration (Acute) Abnormal bone scan of thoracic spine (Acute) Thrombocytopenia (Acute) MSSA bacteremia (Acute) 1. Intractable back pain due to recent T8 vertebral compression fracture due to osteomyelitis due to MSSA. The recent bone scan on 01/31 is consistent with multiple areas of increased radiopharmaceutical uptake. due to infection or to infection? 2. Pathological vertebral compression fx at T8 in 12/2017- bone path with multinucleated Histiocytes.. - Secondary Discharge Diagnosis Chronic Problems Fracture of surgical neck of right humerus (Chronic) Benign essential HTN (Chronic) HLD (hyperlipidemia) (Chronic) Hypothyroidism (Chronic) S/P total knee replacement (Chronic) 01/09/16, [facility] left, Dr Poole AV block, 1st degree (Chronic) Shoulder pain, left (Chronic) Chronic pain (Chronic) Spinal stenosis (Chronic) Osteoarthritis (Chronic) Coronary artery disease (Chronic) Low back pain (Chronic) Hypertension (Chronic) GERD (gastroesophageal reflux disease) (Chronic) Lumbar spinal stenosis (Chronic) Hospital Course and Treatment Operations: None Summary of Care Provided: [] Patient is an 82-year-old female was admitted to the hospital with complaint of intractable mid back pain secondary to severe vertebral fracture of T8. An Outpatient bone scan had many areas of increased radiopharmaceutical uptake in the thoracic spine, right sacroiliac joint, right posterior ilium, left sacral ala and left posterior lateral sixth rib which were initially thought to be due to metastatic disease but, in hind sight may all be due to ectopic sites of infection/previous fracture site as he had fall on the back and right humeral fracture. Patient was admitted on the regular MedSurg floor. W/U revealed MSSA bacteremia and the bone culture from T8 is + for MSSA. Pathology on the bone showed no acute osteomyelitis but, showed multinucleated giant cell Histiocytes. ID was consulted and patient is on IV cefazolin. MRI of the spine was done twice and both had similar picture. Reported as mass centered at the T8 vertebral body with pathological compression fracture assistive of possible metastatic disease. Paraspinal extension of the mass and retropulsion of the posterior cortex of the spinal canal narrowing. The patient was seen and examined today. She still complaining of pain today, severe pain at T8 vertebral level and moderate pain at the lumbar spine. Denies bowel or bladder incontinence. General: Alert awake and alert oriented ?3. HEENT: Atraumatic Oral: - - tongue is coated Neck: Supple, No Nuchal Rigidity, Trachea Midline Lungs: Clear to auscultation, Diminished - in the bases Cardiovascular: Regular rate, Regular Rhythm, Normal S1, Normal S2, No Gallop Abdomen: Bowel Sounds Present, Soft, Non Tender, Non-Distended Extremities: No cyanosis, No edema Skin: No rashes, No breakdown Neurological: Cranial nerves II-XII grossly intact, Neuro grossly intact. Able to move her extremities. Gross sensation intact. Back: Tenderness present at T8 level and 2 vertebral levels above and below. Tenderness also present lumbar spine level. In view of concern of mass and possible metastatic disease, this was discussed with her daughter Ms Lai and she agreed for [facility] transfer. Transfer line was called and hospital course, workup, emesis of bacteremia and antibiotic was discussed. Patient is being accepted and the hospitalist service there. Patient is in the process of being transfer once bed is available. Impression 1. Intractable back pain due to T8 vertebral compression fracture due to osteomyelitis due to MSSA. The recent bone scan on 01/31 is consistent with multiple areas of increased radiopharmaceutical uptake. due to infection or to infection? 2. Vertebral compression fx at T8 - bone path with multinucleated Histiocytes 3. Osteoporosis not on a bisphosphonate or Miacalcin or Evista. She is on Vitamin D and calcium 4. Lumbar central canal stenosis and multilevel foraminal stenosis in the thoracic and the lumbar spine 5. Chronic pain S. - follows with Dr. Edmond. Currently on Oxycontin 15 mg BID , Toradol IV, dilaudid IV, Lidoderm patches, 6. OA 7. CAD with a hx of PTCA and stent in the past 8. HTN 9. GERD 10. thrombocytopenia - resolved and likely due to the acute infection 11. suspected occult malignancy - soft tissue mass at T8 12. First-degree AV block 13. Hyperlipidemia 14. Hypothyroidism 15. dehydration 16. Hypokalemia 17. thrush Thoracic Spine MRI 02/05/18 13:58 IMPRESSION: Study markedly limited due to motion. Study appears essentially unchanged compared to February 03, 2018 with a mass centered at the T8 vertebral body with pathologic compression fracture, suggestive of metastatic disease. Paraspinal extension of the mass and retropulsion of the posterior cortex with spinal canal narrowing. Stable pulmonary edema in T7 vertebral body, may be due to microcompressions and/or extension of the mass lesion. at 1752 Reported and signed by: Evelina Valencia MD Electronically Signed: Evelina Valencia MD at 16:51 EST Tel , Service support , Home Medications: Medications to take at Discharge Atorvastatin Calcium [Lipitor] 40 mg PO QHS 12/19/13 Isosorbide Mononitrate [Imdur] 30 mg PO DAILY 12/19/13 Levothyroxine [Synthroid] 75 mcg PO DAILY 12/19/13 Metoprolol Tartrate [Lopressor (beta rafael)] 25 mg PO BID #60 tablet 01/20/16 Aspirin 81 mg PO DAILY 03/07/17 Oxycodone HCl/Acetaminophen [Percocet 5/325] 1 tab PO Q4H PRN PRN #22 tab TraMADol [Ultram (G)] 50 mg PO Q6H PRN PRN 02/01/18 Calcium Carbonate [Calcium] 1,200 mg PO DAILY 02/02/18 Primary Care Physician: Jon Quiroz [Primary Care Provider] - Meaningful Use Info Meaningful Use Diagnoses (Choose all that apply): None applicable Code Visit Inpatient E&M: 52285 Disch Hosp
[2018-02-08 13:59] VITALS: BP 132/66; PULSE 93; RESP 18; TEMP 36.8; O2SAT 94
== END 2018-02-08 13:57 | disposition short-term general hospital (02) | DRG 478 ==
LOC: ED 18:21 → MS3 19:56
PROVIDERS: Anesthesiology; Internal Medicine; Orthopaedic Surgery; Admitting Provider Internal Medicine; Emergency Provider Emergency Medicine; Visit Provider Internal Medicine
PROC: 0PS43ZZ Reposition Thoracic Vertebra, Percutaneous Approach (ICD-10-PCS; principal; 2018-02-04 07:20)
DX: M48.54XA Collapsed vertebra, not elsewhere classified, thoracic region, initial encounter for fracture (principal); B37.0 Candidal stomatitis; D69.6 Thrombocytopenia, unspecified; M46.24 Osteomyelitis of vertebra, thoracic region; R78.81 Bacteremia; E86.0 Dehydration; B95.61 Methicillin susceptible Staphylococcus aureus infection as the cause of diseases classified elsewhere; G89.29 Other chronic pain; E03.9 Hypothyroidism, unspecified; I25.10 Atherosclerotic heart disease of native coronary artery without angina pectoris; E78.5 Hyperlipidemia, unspecified; I10 Essential (primary) hypertension; M15.9 Polyosteoarthritis, unspecified; K21.9 Gastro-esophageal reflux disease without esophagitis; I44.0 Atrioventricular block, first degree; Z95.5 Presence of coronary angioplasty implant and graft; M48.061 Spinal stenosis, lumbar region without neurogenic claudication; E87.6 Hypokalemia; M81.0 Age-related osteoporosis without current pathological fracture; R94.8 Abnormal results of function studies of other organs and systems; Z96.652 Presence of left artificial knee joint; S42.211D Unspecified displaced fracture of surgical neck of right humerus, subsequent encounter for fracture with routine healing; Z90.49 Acquired absence of other specified parts of digestive tract; Z85.038 Personal history of other malignant neoplasm of large intestine; Z79.899 Other long term (current) drug therapy; Z79.82 Long term (current) use of aspirin
CPT/HCPCS: 36415; 72072; 72146; 72148; 76000; 78306; 80048; 80076; 81001; 83735; 84100; 84443; 85025; 85610; 85652; 85730; 86140; 87040; 87070; 87075; 87077; 87086; 87088; 87149; 87184; 87186; 87205; 88305; 88311; 88313; 88331; 93005; 93306; 94762; 96374; 96375; 97110; 97116; 97162; 97166; 97802; 99283; 99285; J3010; J7050; J7120; A4216; J2405

== ENCOUNTER 2018-02-20 11:08 | Inpatient (IN) | payer MEDICARE, OTHER, SELFPAY ==
[2018-02-20] VITALS (8 sets, daily range): BP systolic 104–112; BP diastolic 45–70; PULSE 54–80; RESP 14–18; TEMP 36.5–36.8; O2SAT 92–99; BMI 27.0; BMI 26.2; BMI 26.3
--- NOTE | 2018-02-20 11:48 | RAD_ITS ---
STUDY: X-RAY CHEST REASON FOR EXAM: Female, 82 years old. Chest pain TECHNIQUE: Single AP portable view of the chest. COMPARISON: None. FINDINGS: The lungs are hypoinflated with associated bibasilar atelectasis. Lungs are otherwise clear. There is no demonstrated pleural abnormality. There is borderline cardiomegaly. Normal mediastinum and paty. Normal visualized pulmonary arteries. There is atherosclerotic calcification of the aortic arch with tortuosity. There are diffuse degenerative changes of the visualized thoracic spine. There is degenerative osteoarthritis of the bilateral shoulders. There is no demonstrated abnormality of the visualized soft tissue structures of the upper abdomen. RAD/Chest 1 View (Portable) IMPRESSION: Hypoinflated lungs with bibasilar atelectasis. No acute airspace disease. Electronically Signed: Jimbo Orr DO at 12:51 EDT Tel , Service support ,
--- NOTE | 2018-02-20 11:48 | EKG12_ITS ---
Test Reason : WEAKNESS Blood Pressure : / mmHG Vent. Rate : 067 BPM Atrial Rate : 067 BPM P-R Int : 256 ms QRS Dur : 100 ms QT Int : 418 ms P-R-T Axes : 008 -01 009 degrees QTc Int : 441 ms Sinus rhythm with 1st degree A-V block Otherwise normal ECG Confirmed by KIMBERLY FRIEDMAN, CLAYTON ([id number]), editorial project manager EDWARD ESQUEDA ([id number]) on 02/21/2018 2:24:45 PM Referred By: AUGUSTA Confirmed By:CLAYTON HARRIS MD
--- NOTE | 2018-02-20 11:49 | RAD_ITS ---
STUDY: X-RAY - THORACIC SPINE REASON FOR EXAM: Female, 82 years old. Pain. History of kyphoplasty. Osteomyelitis. TECHNIQUE: 3 view(s) of the thoracic spine were obtained. COMPARISON: None. FINDINGS: There is an increase in the normal thoracic kyphosis. There is no substantial scoliosis. There is multilevel endplate spondylosis of the thoracic vertebrae. There is multilevel disc space narrowing of the thoracic spine. Mid thoracic spine compression fractures are chronic in nature. One level of kyphoplasty. The soft tissue structures are unremarkable. RAD/Thoracic Spine 2 Views IMPRESSION: Moderate to severe degenerative changes of the thoracic spine Electronically Signed: Jimbo Orr DO at 12:50 EDT Tel , Service support ,
--- NOTE | 2018-02-20 11:56 | ED.VISSUMM ---
- ER Visit Summary Date of Service: 02/20/18 Chief Complaint: [] Upper back pain history of thoracic spine fracture, kyphoplasty, osteomyelitis, intractable back pain, on IV antibiotics at [facility] History of Present Illness: The patient is a 82 F [] all of the above. She basically had a thoracic spine fracture history by daughter, she was scheduled for kyphoplasty to this level upper thoracic spine, just before the procedure a bone biopsy was done that showed no signs of infection or tumor and the kyphoplasty was completed but then post the procedure the final pathology report suggested infection and the patient was started on IV antibiotics. She was also some point referred to [facility] to see neurosurgery spine related to the possibility of tumor she had multiple imaging studies per the daughter including MRIs CAT scans etc. also multiple specialists and was told there was no signs of a tumor but rather there was inflammation related to the infection and the fracture and that the patient should be treated with IV antibiotics and undergo physical therapy and rehab Last 3 days despite being on multiple oral pain meds the patient's pain is intractable she cannot eat or drink much she is unable to rehab in the [facility] sent her to the hospital she has had no vomiting no chest or abdominal pain she has limited pain when she is perfectly still but any type of movement causes pain she is able move her arms and legs she has had no neurologic abnormalities or findings Physical Examination: [] in bed comfortable looking about she has a bandage over the upper spine this is the area of pain she is awake and alert she has no neck pain she has no lumbar spine pain her her lungs are clear heart tones are regular the abdomen soft nontender she is able to move all 4 extremities she complains of pain with movement of her arms she is answering questions she seems a little bit slow to respond per the daughter as she is tired having had an arrest secondary to pain Test Results: [] Emergency Department Course and Treatment: [] The daughter the [facility] can no longer manage her her pain is intractable to the outpatient oral medication regimen at one time she was seen pain management, the IV antibiotic therapy is going well given all the above will obtain screening labs IV pain management and discussed with the hospitalist The patient's lab studies are generally unremarkable see those reports, the x-ray of the thoracic spine and chest x-ray show severe DJD lumbar spine but nothing that appears acute see those reports Treatment Plan: [] Disposition: [] Admits stable pending hospitalist evaluation Impression: [] Thoracic spine fracture kyphoplasty osteomyelitis intractable pain failure of outpatient therapy This note was generated with [employer] dictation software. It may contain incorrect words, spelling, and punctuation that were not noted in review of the chart prior to signing ED Disposition - Plan for ED Patient: Chief Complaint: Back Referrals: Jon Quiroz [Primary Care Provider] -
--- NOTE | 2018-02-20 12:00 | ED.DCSUM_ITS ---
- ER Visit Summary Date of Service: 02/20/18 Chief Complaint: [] Upper back pain history of thoracic spine fracture, kyphoplasty, osteomyelitis, intractable back pain, [facility] History of Present Illness: The patient is a 82 F [] all of the above. She basically had a thoracic spine fracture history by daughter, she was scheduled for kyphoplasty to this level upper thoracic spine, just before the procedure a bone biopsy was done that showed no signs of infection or tumor and the kyphoplasty was completed but then post the procedure the final pathology report suggested infection and the patient was started on IV antibiotics. She was also some point referred to [facility] to see neurosurgery spine related to the possibility of tumor she had multiple imaging studies per the daughter including MRIs CAT scans etc. also multiple specialists and was told there was no signs of a tumor but rather there was inflammation related to the infection and the fracture and that the patient should be treated with IV antibiotics and undergo physical therapy and rehab Last 3 days despite being on multiple oral pain meds the patient's pain is intractable she cannot eat or drink much she is unable to [facility] her to the hospital she has had no vomiting no chest or abdominal pain she has limited pain when she is perfectly still but any type of movement causes pain she is able move her arms and legs she has had no neurologic abnormalities or findings Physical Examination: [] in bed comfortable looking about she has a bandage over the upper spine this is the area of pain she is awake and alert she has no neck pain she has no lumbar spine pain her her lungs are clear heart tones are regular the abdomen soft nontender she is able to move all 4 extremities she complains of pain with movement of her arms she is answering questions she seems a little bit slow to respond per the daughter as she is tired having had an arrest secondary to pain Test Results: [] Emergency Department Course and Treatment: [] The [facility] no [facility] manage her her pain is intractable to the outpatient oral medication regimen at one time she was seen pain management, the IV antibiotic therapy is going well given all the above will obtain screening labs IV pain management and discussed with the hospitalist The patient's lab studies are generally unremarkable see those reports, the x- ray of the thoracic spine and chest x-ray show severe DJD lumbar spine but nothing that appears acute see those reports Treatment Plan: [] Disposition: [] Admits stable pending hospitalist evaluation Impression: [] Thoracic spine fracture kyphoplasty osteomyelitis intractable pain failure of outpatient therapy This note was generated with [employer] dictation software. It may contain incorrect words, spelling, and punctuation that were not noted in review of the chart prior to signing ED Disposition - Plan for ED Patient: Chief Complaint: Back Referrals: Jon Quiroz [Primary Care Provider] -
[2018-02-20] MEDS: Morphine 4 MG/ML Syringe IV (12:06)
[2018-02-20] MEDS: Ondansetron 4 MG/2 ML Vial IV (12:07)
[2018-02-20 12:59] LABS: Absolute Lymphocyte Count 1.18 X10^3/ul (0.83-4.51); Absolute Neutrophil Count 5.5 X10^3/uL (2.0-7.7); Basophil# 0.04 X10^3/uL; Basophil% 0.5 % (0-1); Eosinophils% 1.2 % (0-5); Hematocrit 35.9 % (37-47); Hemoglobin 11.5 g/dl (12.0-15.0); Lymphocyte # 1.18 X10^3/ul (4.0); Lymphocyte % 14.4 % (19-41); Mean Corpuscular Hgb 32.4 pg (27.0-32.0); Mean Corpuscular Volume 101.1 fL (81-99); Mean Platelet Vol. 9.7 fl (6.2-12.0); Monocyte# 1.21 X10^3/uL; Monocyte% 14.8 % (0-10); Neutrophil # 5.52 X10^3/uL (2.7-7.7); Neutrophil % 67.4 % (47-70); Platelet Count 372 K/mm3 (150-450); RBC Distribution Width CV 13.5 % (11.6-14.6); RBC Distribution Width SD 49.1 fl (35.1-43.9); Red Blood Count 3.55 M/mm3 (4.2-5.4); White Blood Count 8.2 K/mm3 (4.4-11.0)
[2018-02-20 13:00] LABS: POSITIVE COUNT NO; POSITIVE DIFFERENTIAL NO; POSITIVE MORPHOLOGY NO
[2018-02-20 13:20] LABS: Anion Gap 8 (5-15); BUN 14 mg/dL (7-18); BUN/Creat Ratio 13.3 RATIO (10-20); Calcium,Total 9.3 mg/dL (8.5-10.1); Chloride 104 mmol/L (98-107); Creatinine, Serum 1.05 mg/dL (0.55-1.02); EST Glomerular Filtration Rate 53 mL/min (>60); Est Glom Filt Rate - Afr Amer 65 mL/min (>60); Estimated Creatinine Clearance 39.64 ml/min; Glucose 100 mg/dL (74-106); Potassium 3.7 mmol/L (3.5-5.1); Sodium Level 139 mmol/L (136-145)
--- NOTE | 2018-02-20 13:43 | NURSING ---
DR NOGUERA FOR DR DERAS
--- NOTE | 2018-02-20 13:52 | PCM.HP.STD ---
Problem List (1) Intractable back pain Status: Chronic (2) Pathologic fracture of vertebra Status: Acute Qualifiers: Pathology associated with fracture: unspecified disease (3) Dehydration Status: Acute (4) Abnormal bone scan of thoracic spine Status: Acute (5) Thrombocytopenia Status: Acute (6) MSSA bacteremia Status: Acute (7) Fracture of surgical neck of right humerus Status: Chronic Qualifiers: (8) Hypothyroidism Status: Chronic Qualifiers: (9) Osteoarthritis Status: Chronic (10) Coronary artery disease Status: Chronic Qualifiers: (11) Low back pain Status: Chronic Qualifiers: (12) Hypertension Status: Chronic Qualifiers: (13) GERD (gastroesophageal reflux disease) Status: Chronic (14) Lumbar spinal stenosis Status: Chronic History of Present Illness Date of Admission: 02/20/18 Chief Complaint: Intractable back pain The patient is a 82 year old F with past medical history of severe lumbar stenosis, T8 compression fracture and osteomyelitis from MSSA, osteoporosis, coronary artery disease status post angioplasty and stenting and hypertension . She was recently discharged from the hospital after she presented with intractable back pain and found to have T8 compression fracture and underwent kyphoplasty she was later found to have MSSA osteomyelitis by biopsy, she was also found to have MSSA bacteremia, was treated with IV antibiotics and then discharged to a local assisted on IV cefazolin for 8 weeks by infectious disease recommendation. She has worsening intractable back pain despite being on adequate oral analgesia at the SNF. She was brought back to the emergency room for further evaluation and management. The patient is alert and oriented to time place and person, she appears to be distressed from her back pain, she reports no fever, shortness of breath, chest pain, constipation, leg weakness, loss of bowel or bladder control. 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) Shoulder pain, left (Chronic) Chronic pain (Chronic) Spinal stenosis (Chronic) Osteoarthritis (Chronic) Coronary artery disease (Chronic) Low back pain (Chronic) Hypertension (Chronic) GERD (gastroesophageal reflux disease) (Chronic) Lumbar spinal stenosis (Chronic) Allergies No Known Allergies Allergy (Verified 02/20/18 11:09) Home Medications: Ambulatory Orders Medication Instructions Recorded Atorvastatin Calcium [Lipitor] 40 mg PO QHS 12/19/13 Isosorbide Mononitrate [Imdur] 30 mg PO DAILY 12/19/13 Levothyroxine [Synthroid] 75 mcg PO DAILY 12/19/13 Metoprolol Tartrate [Lopressor 25 mg PO BID #60 tablet 01/20/16 (beta rafael)] Aspirin 81 mg PO DAILY 03/07/17 Calcium Carbonate [Calcium] 1,200 mg PO DAILY 02/02/18 Acetaminophen [Tylenol Extra 500 - 1,000 mg PO Q8H PRN PRN 02/20/18 Strength] Bisacodyl 10 mg PO DAILY 02/20/18 Cefazolin Sodium/D5w [Cefazolin 2 2 gm IV TID 02/20/18 Gram/100 ml-D5w] Cholecalciferol (Vitamin D3) 5,000 unit PO DAILY 02/20/18 [Vitamin D3] Cyclobenzaprine [Flexeril] 10 mg PO TID 02/20/18 Docusate Sodium [Dok] 100 mg PO BID PRN 02/20/18 Famotidine [Pepcid] 20 mg PO DAILY 02/20/18 Melatonin 3 mg PO QHS 02/20/18 Mirtazapine 15 mg PO QHS 02/20/18 Nystatin 5 ml PO 4X/DAY 02/20/18 Ondansetron [Zofran Odt] 4 mg PO Q6H PRN PRN 02/20/18 Oxycodone CR [Oxycontin] 15 mg PO Q12H 02/20/18 Oxycodone [Oxyir] 5 mg PO Q4H PRN PRN 02/20/18 Surgical History: cholecystectomy, colectomy - Colon cancer., hysterectomy, total hip arthroplasty - Right., total knee arthroplasty - Left., - - Cardiac stent. Psychiatric History: No pertinent psych hx HEALTHCARE EDUCATOR History: No pertinent HEALTHCARE EDUCATOR history, - - she had a ANGÉLICA/BSO for DUB in the past Smoking Status: Never smoker - *Family History Maternal History Items: No pertinent history Paternal History Items: No pertinent history, - Review of Systems Comment: All Systems were reviewed with pertinent positives mentioned in the HPI above. VTE Information - Inpt Only VTE Present on Admission: No VTE Mechan Device Prophylaxis: SCD's VTE Pharm Prophylaxis ordered?: Yes - Physical Exam General: Alert, Oriented x3 HEENT: Atraumatic Oral: Moist Mucosa Neck: Supple, No JVD Lungs: Clear to auscultation, Normal air movement, No wheeze Cardiovascular: Regular rate, Normal S1, Normal S2 Abdomen: Bowel Sounds Present, Soft Extremities: No edema Neurological: Cranial nerves II-XII grossly intact, Motor Exam 5/5 strength throughout Psych/Mental Status: Normal Affect Vital Signs Temp Pulse Resp BP Pulse Ox 98.3 F 72 18 112/63 92 02/20/18 11:10 02/20/18 11:10 02/20/18 11:10 02/20/18 11:10 02/20/18 11:10 Oxygen Delivery Method Room Air Weight: 60.781 kg Body Mass Index (BMI) 27.0 Laboratory Tests Past 24 Hrs 02/20/18 02/20/18 12:50 12:50 WBC 8.2 RBC 3.55 L Hgb 11.5 L Hct 35.9 L MCV 101.1 H MCH 32.4 H MCHC 32.0 RDW 13.5 RDW Differential 49.1 H Plt Count 372 MPV 9.7 Immature Gran % (Auto) 1.700 H Neut % (Auto) 67.4 Lymph % (Auto) 14.4 L Cotton % (Auto) 14.8 H Eos % (Auto) 1.2 Baso % (Auto) 0.5 Absolute Neuts (auto) 5.5 Absolute Lymphs (auto) 1.18 Total Counted Not Reportable Sodium 139 Potassium 3.7 Chloride 104 Carbon Dioxide 27.0 Anion Gap 8 BUN 14 Creatinine 1.05 H Estim Creat Clear Calc 39.64 Est GFR (MDRD) Af Amer 65 Est GFR (MDRD) Non-Af 53 L BUN/Creatinine Ratio 13.3 Glucose 100 Calcium 9.3 Troponin I < 0.02 Assessment/Plan 1. Intractable back pain from osteomyelitis and degenerative disc disease; will be admitted to the hospital, we would optimize pain control we would reimage her thoracic and lumbar spine with MRI and go from there. 2. T8 MSSA osteomyelitis ; we will obtain sed rate and C-reactive protein, we will continue on IV cefazolin and reconsult infectious disease physician. 3. CAD s/p PTCA with stenting; we will continue on her cardioprotective medications as they are. 4. Essential hypertension; this is controlled. 5. Code Visit Inpatient E&M: 96280 Init Hosp L2
--- NOTE | 2018-02-20 14:07 | NURSING ---
[address] [place] [address] INTRACTABLE BACK PAIN
[2018-02-20] MEDS: oxyCODONE 5 MG Tablet PO (15:15)
[2018-02-20 16:05] LABS: Erythrocyte Sedimentation Rate 61 mm/hr (0-30)
[2018-02-20] MEDS: Cefazolin 2 GM in 0.9% Normal Saline 100 ML IV (16:43)
[2018-02-20] MEDS: NYSTATIN 500,000 UNIT/5 ML UDC 500000 UNIT PO ×2 (16:43→21:50)
[2018-02-20] MEDS: 0.9% NaCl Peripheral Flush Adult/Peds IV (18:24)
[2018-02-20] MEDS: Morphine 2 MG/ML Syringe 1 MG IV (18:24)
[2018-02-20] MEDS: oxyCODONE CR 15 MG Tablet PO (20:28)
[2018-02-20] MEDS: MELATONIN 3 MG TABLET PO (21:49)
[2018-02-20] MEDS: Atorvastatin Calcium 40 MG Tablet PO (21:49)
[2018-02-20] MEDS: Mirtazapine 15 MG Tablet PO (21:50)
[2018-02-21] VITALS (7 sets, daily range): BP systolic 95–140; BP diastolic 54–68; PULSE 65–80; RESP 16–18; TEMP 36.7–36.9; O2SAT 95–97
[2018-02-21] MEDS: Cefazolin 2 GM in 0.9% Normal Saline 100 ML IV ×3 (00:03→16:04)
[2018-02-21] MEDS: oxyCODONE 5 MG Tablet PO ×3 (05:50→14:27)
[2018-02-21] MEDS: Levothyroxine 100 MCG Tablet 75 MCG PO (05:50)
[2018-02-21] MEDS: Morphine 2 MG/ML Syringe 1 MG IV (07:55)
[2018-02-21] MEDS: Aspirin E.C. 81 MG Tablet PO (07:57)
[2018-02-21] MEDS: Bisacodyl 5 MG Tablet 10 MG PO (09:17)
[2018-02-21] MEDS: Isosorbide Mononitrate 30 MG Tablet PO (09:18)
[2018-02-21] MEDS: Famotidine 20 MG Tablet PO (09:18)
[2018-02-21] MEDS: Metoprolol Tartrate 25 MG Tablet PO ×2 (09:18→21:49)
[2018-02-21] MEDS: NYSTATIN 500,000 UNIT/5 ML UDC 500000 UNIT PO ×3 (09:18→21:49)
[2018-02-21] MEDS: Enoxaparin 40 MG/0.4 ML Syringe SC (09:18)
[2018-02-21] MEDS: Calcium Carbonate 500 MG Tablet 1000 MG PO (09:19)
--- NOTE | 2018-02-21 10:46 | CASEMGMT ---
Readmission Note: Pt presented to ER with intractable back pain x 3 days. Hx of kyphoplasty, bone bx which showed infection and pt was on IV antibiotics. Pt is from [facility]. Plan: optimize pain control, MRI of thoracic and lumbar spine. Hx of T8 MSSA osteomyelitis- continue IV cefazolin and consult ID Last admission: 02/02-02/08/18. Treatment for Intractable back pain. DC to [facility] and then to [facility]. DC PLAN: SW consult- return to SNF unless transfer to [facility] is recommended by physicianReji Crooks BSN RN ACM
--- NOTE | 2018-02-21 11:29 | PCM.HP.ID ---
Problem List (1) MSSA bacteremia Status: Acute Reason for Consult: mssa bacteremia Consulted by: Dr. Rosado History of Present Illness: The patient is a 82 year old F with recent admission for MSSA bacteremia and T8 osteomyelitis. She was transferred to [facility], MRI showed moderate paraspinal phlegmon and mild epidural abscess. No surgical intervention taken. Discharged on 8 weeks iv cefazolin to [facility], planned stop date 04/02/18. Over the past 4-5 days, much worse R sided mid-back pain. Weakness in RLE, but this has been relatively stable. No fever, no issues with picc, no n/v/d, no rash, no other new joint pain. Pain was severe. Taken to ED, cefazolin continued. Unable to tolerate MRI due to worsened pain with lying flat. Full ROS performed and neg except as noted above. - Medical History Past Medical History (Chronic Problems): Chronic Problems Bone lesion (Chronic) Intractable back pain (Chronic) Fracture of surgical neck of right humerus (Chronic) Benign essential HTN (Chronic) HLD (hyperlipidemia) (Chronic) Hypothyroidism (Chronic) S/P total knee replacement (Chronic) 01/09/16, 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) Shoulder pain, left (Chronic) Chronic pain (Chronic) Spinal stenosis (Chronic) Osteoarthritis (Chronic) Coronary artery disease (Chronic) Low back pain (Chronic) Hypertension (Chronic) GERD (gastroesophageal reflux disease) (Chronic) Lumbar spinal stenosis (Chronic) Allergies/Adverse Reactions: Allergies No Known Allergies Allergy (Verified 02/20/18 11:09) Home Medications: Ambulatory Orders Medication Instructions Recorded Atorvastatin Calcium [Lipitor] 40 mg PO QHS 12/19/13 Isosorbide Mononitrate [Imdur] 30 mg PO DAILY 12/19/13 Levothyroxine [Synthroid] 75 mcg PO DAILY 12/19/13 Metoprolol Tartrate [Lopressor 25 mg PO BID #60 tablet 01/20/16 (beta rafael)] Aspirin 81 mg PO DAILY 03/07/17 Calcium Carbonate [Calcium] 1,200 mg PO DAILY 02/02/18 Acetaminophen [Tylenol Extra 1,000 mg PO Q8H PRN PRN 02/20/18 Strength] Bisacodyl 10 mg PO DAILY 02/20/18 Bisacodyl [Dulcolax] 10 mg RECTAL DAILY PRN PRN 02/20/18 Cefazolin Sodium/D5w [Cefazolin 2 2 gm IV TID 02/20/18 Gram/100 ml-D5w] Cholecalciferol (Vitamin D3) 5,000 unit PO DAILY 02/20/18 [Vitamin D3] Cyclobenzaprine [Flexeril] 10 mg PO TID 02/20/18 Docusate Sodium [Dok] 100 mg PO BID PRN 02/20/18 Ensure Enlive [Ensure Enlive] 237 ml PO TID 02/20/18 Famotidine [Pepcid] 20 mg PO DAILY 02/20/18 Melatonin 3 mg PO QHS 02/20/18 Mirtazapine 15 mg PO QHS 02/20/18 Nystatin 5 ml PO 4X/DAY 02/20/18 Ondansetron [Zofran Odt] 4 mg PO Q6H PRN PRN 02/20/18 Oxycodone CR [Oxycontin] 15 mg PO Q12H 02/20/18 Oxycodone [Oxyir] 5 mg PO Q4H PRN PRN 02/20/18 Sennosides/Docusate Sodium 1 each PO BID 02/20/18 [Senna-Docusate Sodium Tablet] - Social History SMOKING STATUS:: Never smoker Vital Signs Temp Pulse Resp BP Pulse Ox 98.0 F 70 16 123/62 H 97 02/21/18 08:18 02/21/18 09:18 02/21/18 08:18 02/21/18 08:18 02/21/18 08:18 Oxygen Flow Rate (L/min) 2 Oxygen Delivery Method Room Air Weight: 59.012 kg Body Mass Index (BMI) 26.2 - Other Studies Radiology: [] reviewed Other Studies: [] Route of nutrition/ use of supplements: [] Nutritional Intake: [] IV Site: [] Paula Catheter: [] - Physical Exam General: Alert, Cooperative, - - in pain HEENT: Atraumatic, PERRLA, EOMI Neck: Supple, No Nodes Lungs: Clear to auscultation, Normal air movement Cardiovascular: Regular rate, Regular Rhythm, No murmurs Abdomen: Bowel Sounds Present, Soft, Non Tender, Non-Distended Extremities: No edema Skin: No rashes, - - no janeway/osler/splinter hemorrhages on hands or feet IV Site: PICC, without redness Musculoskeletal: No Tenderness to Palpation of Joints or Extremities - Assessment/Plan Antibiotics: [] Assessment/Plan: [] MSSA bacteremia with thoracic osteomyelitis and mild epidural phlegmon seen on MRI - now presenting with much worsened back pain. Concern further fracture or enlarging epidural abscess. Unable to tolerate MRI due to excruciating pain. Recommend urgent CT scan with contrast of spine with whatever sedation necessary. After that point, decision is if there are surgical options or to pursue hospice therapy. Discussed with the patient and her daughter and they are in agreement. Will check Bcx and continue cefazolin. Thank you, will follow. D/w Dr. Delgadillo. Reviewed records from [facility] and Dr. Sumner.
--- NOTE | 2018-02-21 11:34 | CT_ITS ---
STUDY: CT THORACIC SPINE WITH CONTRAST REASON FOR EXAM: Female, 82 years old. Back pain. Prior kyphoplasty RADIATION DOSAGE (If Supplied By Facility): CTDIvol = ( 27.60 ) mGy, DLP = ( 643.13 ) mGycm TECHNIQUE: The patient was scanned in a multi detector CT scanner. High resolution imaging was performed following the intravenous administration of 100 ml of Isovue 300 contrast material. Images were obtained from C5 to L1. Sagittal and coronal images were reconstructed. Individualized dose optimization techniques were used for this CT. COMPARISON: MRI thoracic spine dated 02/05/2018 FINDINGS: There is multilevel endplate spondylosis of the cervical spine. There is an increased kyphosis of the thoracic spine. There is no substantial scoliosis. There is multilevel endplate spondylosis of the thoracic spine. There is multilevel degenerative disc disease with loss of the disc space heights. Prior kyphoplasty performed at the T8 level. Vertebral plana is noted with osseous cement in cortex and breakage of the endplates. Anterior this level, there is some soft tissue prominence which may represent scarring or underlying mass. Moderate compression fracture of T7 is noted, progressed since prior MRI. No acute fracture or listhesis throughout. Diffuse demineralization. Bibasilar airspace disease could represent chronic scarring. Remaining surrounding soft tissues are within normal limits CT/Spine Thoracic WITH Contrast IMPRESSION: Prior kyphoplasty at T8 with vertebral plana. Moderate compression fracture of T7, demonstrates progression as compared to most recent prior MRI. Remainder as above Electronically Signed: Jimbo Orr DO at 12:59 EDT Tel , Service support ,
--- NOTE | 2018-02-21 11:35 | CT_ITS ---
STUDY: CT LUMBAR SPINE WITH CONTRAST REASON FOR EXAM: Female, 82 years old. Back pain. Prior kyphoplasty RADIATION DOSAGE (If Supplied By Facility): CTDIvol = ( 27.60 ) mGy, DLP = ( 643.13 ) mGycm TECHNIQUE: The patient was scanned in a multi detector CT scanner. High resolution transaxial imaging was performed following the intravenous administration of 100 ml of Isovue 300 contrast material. Images were obtained from T12 to S2. Sagittal and coronal images were reconstructed. Individualized dose optimization techniques were used for this CT. COMPARISON: None FINDINGS: There is an exaggerated lumbar lordosis. There is no substantial scoliosis. Grade 1 anterolisthesis of L3 on L4 with prominent posterior disc bulge. Normal vertebral body heights. Diffuse demineralization. Remaining levels demonstrate moderate to severe multilevel degenerative disc disease with moderate areas of central canal stenosis. Severe central canal stenosis noted at L4-5. Multilevel moderate to severe neural foraminal narrowing. Surrounding soft tissues are grossly within normal limits. CT/Spine Lumbar WITH Contrast IMPRESSION: No acute fracture or listhesis. Degenerative listhesis at L3-4. Prominent disc bulge causing severe central canal stenosis at L4-5. Remaining degenerative changes as above Electronically Signed: Jimbo Orr DO at 12:54 EDT Tel , Service support ,
--- NOTE | 2018-02-21 11:40 | CON.PCM_ITS ---
Problem List (1) MSSA bacteremia Status: Acute Reason for Consult: mssa bacteremia Consulted by: Dr. Rosado History of Present Illness: The patient is a 82 year old F with recent admission for MSSA bacteremia and T8 osteomyelitis. She was transferred to [facility], MRI showed moderate paraspinal phlegmon and mild epidural abscess. No surgical intervention taken. [facility], planned stop date 04/02/18. Over the past 4-5 days, much worse R sided mid-back pain. Weakness in RLE, but this has been relatively stable. No fever, no issues with picc, no n/v/d, no rash, no other new joint pain. Pain was severe. Taken to ED, cefazolin continued. Unable to tolerate MRI due to worsened pain with lying flat. Full ROS performed and neg except as noted above. 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) Shoulder pain, left (Chronic) Chronic pain (Chronic) Spinal stenosis (Chronic) Osteoarthritis (Chronic) Coronary artery disease (Chronic) Low back pain (Chronic) Hypertension (Chronic) GERD (gastroesophageal reflux disease) (Chronic) Lumbar spinal stenosis (Chronic) Allergies/Adverse Reactions: Allergies No Known Allergies Allergy (Verified 02/20/18 11:09) Home Medications: Ambulatory Orders Medication Instructions Recorded Atorvastatin Calcium [Lipitor] 40 mg PO QHS 12/19/13 Isosorbide Mononitrate [Imdur] 30 mg PO DAILY 12/19/13 Levothyroxine [Synthroid] 75 mcg PO DAILY 12/19/13 Metoprolol Tartrate [Lopressor 25 mg PO BID #60 tablet 01/20/16 (beta rafael)] Aspirin 81 mg PO DAILY 03/07/17 Calcium Carbonate [Calcium] 1,200 mg PO DAILY 02/02/18 Acetaminophen [Tylenol Extra 1,000 mg PO Q8H PRN PRN 02/20/18 Strength] Bisacodyl 10 mg PO DAILY 02/20/18 Bisacodyl [Dulcolax] 10 mg RECTAL DAILY PRN PRN 02/20/18 Cefazolin Sodium/D5w [Cefazolin 2 2 gm IV TID 02/20/18 Gram/100 ml-D5w] Cholecalciferol (Vitamin D3) 5,000 unit PO DAILY 02/20/18 [Vitamin D3] Cyclobenzaprine [Flexeril] 10 mg PO TID 02/20/18 Docusate Sodium [Dok] 100 mg PO BID PRN 02/20/18 Ensure Enlive [Ensure Enlive] 237 ml PO TID 02/20/18 Famotidine [Pepcid] 20 mg PO DAILY 02/20/18 Melatonin 3 mg PO QHS 02/20/18 Mirtazapine 15 mg PO QHS 02/20/18 Nystatin 5 ml PO 4X/DAY 02/20/18 Ondansetron [Zofran Odt] 4 mg PO Q6H PRN PRN 02/20/18 Oxycodone CR [Oxycontin] 15 mg PO Q12H 02/20/18 Oxycodone [Oxyir] 5 mg PO Q4H PRN PRN 02/20/18 Sennosides/Docusate Sodium 1 each PO BID 02/20/18 [Senna-Docusate Sodium Tablet] - Social History SMOKING STATUS:: Never smoker Vital Signs Temp Pulse Resp BP Pulse Ox 98.0 F 70 16 123/62 H 97 02/21/18 08:18 02/21/18 09:18 02/21/18 08:18 02/21/18 08:18 02/21/18 08:18 Oxygen Flow Rate (L/min) 2 Oxygen Delivery Method Room Air Weight: 59.012 kg Body Mass Index (BMI) 26.2 - Other Studies Radiology: [] reviewed Other Studies: [] Route of nutrition/ use of supplements: [] Nutritional Intake: [] IV Site: [] Paula Catheter: [] - Physical Exam General: Alert, Cooperative, - - in pain HEENT: Atraumatic, PERRLA, EOMI Neck: Supple, No Nodes Lungs: Clear to auscultation, Normal air movement Cardiovascular: Regular rate, Regular Rhythm, No murmurs Abdomen: Bowel Sounds Present, Soft, Non Tender, Non-Distended Extremities: No edema Skin: No rashes, - - no janeway/osler/splinter hemorrhages on hands or feet IV Site: PICC, without redness Musculoskeletal: No Tenderness to Palpation of Joints or Extremities - Assessment/Plan Antibiotics: [] Assessment/Plan: [] MSSA bacteremia with thoracic osteomyelitis and mild epidural phlegmon seen on MRI - now presenting with much worsened back pain. Concern further fracture or enlarging epidural abscess. Unable to tolerate MRI due to excruciating pain. Recommend urgent CT scan with contrast of spine with whatever sedation necessary. After that point, decision is if there are surgical options or to pursue hospice therapy. Discussed with the patient and her daughter and they are in agreement. Will check Bcx and continue cefazolin. Thank you, will follow. D/w Dr. Delgadillo. Reviewed records from [facility] and Dr. Sumner.
[2018-02-21] MEDS: Morphine 4 MG/ML Syringe IV (11:58)
[2018-02-21] MEDS: 0.9% Normal Saline 1,000 ML 100 ML IV (12:45)
--- NOTE | 2018-02-21 13:34 | CASEMGMT ---
Social Work Met with pt, daughter and son in room and introduced self and role of SW. Pt is admitted from [facility] where she is currently staying for a short term rehab stay. Pt states she is planning on returning to [facility] upon discharge and her family is agreeable. Phone call to Jocelin at [facility] who states they are planning on pt returning after hospitalization. SW will continue to follow. Plan: [facility] when medically ready CECILIA Farias
[2018-02-21] MEDS: HYDROmorphone 1 MG/ML Syringe IV ×2 (14:33→18:21)
[2018-02-21] MEDS: 0.9% NaCl Peripheral Flush Adult/Peds IV (14:33)
--- NOTE | 2018-02-21 16:09 | PCM.PN.HOSP ---
Subjective: Patient was seen and examined. Known to me from her previous admission on 02 February. Patient was transferred to [facility] for neurosurgery evaluation of a spinal mass. Readmitted today because of intractable back pain. Patient could not have an MRI of the back done because she could not lie flat for the procedure. Discussed patient in depth with the family, infectious disease, orthopedic Dr. Seay and also with Dr. Leblanc. When patient was seen in the [facility], the neurosurgery team did not feel that the spinal mass was a spinal mass but was rather an epidural phlegmon from her vertebral osteomyelitis. CT scan of the thorax and lumbar spine was done with contrast that showed a new/progression of T7 spinal fracture. Patient continues to be on IV penicillin for her MSSA vertebral osteomyelitis with bacteremia. Discussed patient in depth with Dr. Seay who is out of town until next week. Recommended that I discussed patient with Dr. Leblanc, who is also out of town until next week. Does not recommend any surgical procedure in the light of current vertebral osteomyelitis with bacteremia. Recommended the use of back brace to stabilize the spine and help with pain control as well as medical management of a pain. Vitals/I&O's: Vital Signs Temp Pulse Resp BP Pulse Ox 98.0 F 70 16 123/62 H 97 02/21/18 08:18 02/21/18 09:18 02/21/18 08:18 02/21/18 08:18 02/21/18 08:18 Oxygen Flow Rate (L/min) 2 Oxygen Delivery Method Room Air Weight: 59.012 kg Body Mass Index (BMI) 26.2 Intake and Output for Last 24 Hours 02/19/18 02/20/18 02/21/18 23:59 23:59 23:59 Intake Total 120 / 120 Output Total 200 / 200 300 / 300 Balance -200 / -200 -180 / -180 General: Alert, Oriented x3, Cooperative, No apparent distress HEENT: Atraumatic, PERRLA, EOMI, Normocephalic Oral: Moist Mucosa Neck: Supple Lungs: Clear to auscultation, Normal air movement Cardiovascular: Regular rate, Regular Rhythm, Normal S1, Normal S2, No murmurs Abdomen: Bowel Sounds Present, Soft, Non Tender, Non-Distended, No Hepato-splenomegaly Extremities: No edema Skin: No rashes Musculoskeletal: Tenderness - over her thoracic and lumbar spine Lymphatic: No Cervical, Supraclavicular, or Inguinal Adenopathy Neurological: Cranial nerves II-XII grossly intact, Neuro grossly intact Psych/Mental Status: Normal Affect, Appropriate Current Medications Acetaminophen (Tylenol) 500 - 1,000 mg PO Q8H PRN PRN PRN Reason: PAIN Aspirin (Ecotrin) 81 mg PO DAILYCM [facility] Last Admin: 02/21/18 07:57 Dose: 81 mg Atorvastatin Calcium (Lipitor) 40 mg PO QHS [facility] Last Admin: 02/20/18 21:49 Dose: 40 mg Bisacodyl (Dulcolax) 10 mg PO DAILY [facility] Last Admin: 02/21/18 09:17 Dose: 10 mg Calcium Carbonate (Tums) 1,000 mg PO DAILY [facility] Last Admin: 02/21/18 09:19 Dose: 1,000 mg Cholecalciferol (Vitamin D) 5,000 unit PO DAILY [facility] Last Admin: 02/21/18 09:19 Dose: 5,000 unit Cyclobenzaprine HCl (Flexeril) 10 mg PO TID [facility] Last Admin: 02/21/18 14:27 Dose: 10 mg Docusate Sodium (Colace) 100 mg PO BID PRN PRN Reason: Constipation Enoxaparin Sodium (Lovenox) 40 mg SC DAILY@1000 [facility] Last Admin: 02/21/18 09:18 Dose: 40 mg Famotidine (Pepcid) 20 mg PO DAILY [facility] Last Admin: 02/21/18 09:18 Dose: 20 mg Hydromorphone HCl (Dilaudid Iv) 1 mg IV Q2H PRN PRN PRN Reason: SEVERE PAIN (6-10/10) Last Admin: 02/21/18 14:33 Dose: 1 mg Sodium Chloride () 1,000 mls @ 0 mls/hr IV .Q0M [facility] PRN Reason: KVO Cefazolin Sodium 2 gm/ Sodium (Chloride) 110 mls @ 220 mls/hr IV Q8H [facility] Last Admin: 02/21/18 16:04 Dose: 220 mls/hr Sodium Chloride () 1,000 mls @ 100 mls/hr IV .Q10H [facility] Stop: 02/22/18 07:39 Last Admin: 02/21/18 12:45 Dose: 100 mls/hr Isosorbide Mononitrate (Imdur) 30 mg PO DAILY [facility] Last Admin: 02/21/18 09:18 Dose: 30 mg Levothyroxine Sodium (Synthroid) 75 mcg PO DAILY@0600 [facility] Last Admin: 02/21/18 05:50 Dose: 75 mcg Magnesium Hydroxide (Milk Of Magnesia) 30 ml PO DAILY PRN PRN PRN Reason: Constipation Melatonin (Melatonin) 3 mg PO QHS [facility] Last Admin: 02/20/18 21:49 Dose: 3 mg Metoprolol Tartrate (Lopressor (Beta Edmund)) 25 mg PO BID [facility] Last Admin: 02/21/18 09:18 Dose: 25 mg Mirtazapine (Remeron) 15 mg PO QHS [facility] Last Admin: 02/20/18 21:50 Dose: 15 mg Nutritional Formula (Lactose Free) (Ensure Enlive) 120 ml PO 4X/DAY [facility] Last Admin: 02/21/18 15:36 Dose: Not Given Nystatin (Nystatin) 500,000 unit PO 4X/DAY [facility] Last Admin: 02/21/18 15:36 Dose: Not Given Ondansetron HCl (Zofran Odt) 4 mg PO Q6H PRN PRN PRN Reason: NAUSEA Oxycodone HCl (Oxyir) 5 mg PO Q4H PRN PRN PRN Reason: PAIN Last Admin: 02/21/18 14:27 Dose: 5 mg Oxycodone HCl (Oxycontin) 30 mg PO Q12@0800,2000 [facility] Sodium Chloride () 5 - 30 ml IV UD PRN PRN Reason: SALINE FLUSH Last Admin: 02/21/18 14:33 Dose: 10 ml Medical Necessity - Tobacco Use Smoking Status: Never smoker Assessment/Plan 82y/o female with PMHx of recently diagnosed vertebra osteomyelitis, T8 compression fracture status post kyphoplasty who comes back with intractable back pain. 1. Acute on chronic intractable back pain secondary to new T7 compression fracture in a patient with recent T8 compression fracture status post kyphoplasty, T8 vertebral osteomyelitis, on IV antibiotics, pain control with morphine is not adequate, will switch to IV Dilaudid, will continue to monitor patient's vitals closely. Continue on flexeril. Recommended to have a back brace by Dr. Ruiz. 2. Osteoporosis, severe, not on bisphosphonates, on calcium, vitamin d, needs aggressive treatment in the outpatient 2. MSSA bacteremia with vertebral osteomyelitis in T8, on IV cefazolin via PICC line for a total of 8 weeks, ID following 3. CAD s/p stents, on aspirin, statin, Imdur, beta-edmund 4. Hypertension, controlled, on metoprolol, will continue to monitor. 5. Hypothyroidism, on levothyroxine 6. History of recurrent fractures, secondary to osteoporosis, not on treatment, on calcium and vitamin D 7. DVT PPx - Lovenox SC Spent almost 1 and half hours co-ordinating patient's care, talking to subspecialists- ID, orthopedics, neurosurgery, talking to the family, reviewing records. Code Visit Inpatient E&M: 55417 Subs Hosp L3
--- NOTE | 2018-02-21 16:20 | PN_ITS ---
Subjective: Patient was seen and examined. Known to me from her previous admission on 02 February. Patient was transferred to [facility] for neurosurgery evaluation of a spinal mass. Readmitted today because of intractable back pain. Patient could not have an MRI of the back done because she could not lie flat for the procedure. Discussed patient in depth with the family, infectious disease, orthopedic Dr. Seay and also with Dr. Leblanc. When patient was seen in the [facility], the neurosurgery team did not feel that the spinal mass was a spinal mass but was rather an epidural phlegmon from her vertebral osteomyelitis. CT scan of the thorax and lumbar spine was done with contrast that showed a new/ progression of T7 spinal fracture. Patient continues to be on IV penicillin for her MSSA vertebral osteomyelitis with bacteremia. Discussed patient in depth with Dr. Seay who is out of town until next week. Recommended that I discussed patient with Dr. Lbelanc, who is also out of town until next week. Does not recommend any surgical procedure in the light of current vertebral osteomyelitis with bacteremia. Recommended the use of back brace to stabilize the spine and help with pain control as well as medical management of a pain. Vitals/I&O's: Vital Signs Temp Pulse Resp BP Pulse Ox 98.0 F 70 16 123/62 H 97 02/21/18 08:18 02/21/18 09:18 02/21/18 08:18 02/21/18 08:18 02/21/18 08:18 Oxygen Flow Rate (L/min) 2 Oxygen Delivery Method Room Air Weight: 59.012 kg Body Mass Index (BMI) 26.2 Intake and Output for Last 24 Hours 02/19/18 02/20/18 02/21/18 23:59 23:59 23:59 Intake Total 120 / 120 Output Total 200 / 200 300 / 300 Balance -200 / -200 -180 / -180 General: Alert, Oriented x3, Cooperative, No apparent distress HEENT: Atraumatic, PERRLA, EOMI, Normocephalic Oral: Moist Mucosa Neck: Supple Lungs: Clear to auscultation, Normal air movement Cardiovascular: Regular rate, Regular Rhythm, Normal S1, Normal S2, No murmurs Abdomen: Bowel Sounds Present, Soft, Non Tender, Non-Distended, No Hepato- splenomegaly Extremities: No edema Skin: No rashes Musculoskeletal: Tenderness - over her thoracic and lumbar spine Lymphatic: No Cervical, Supraclavicular, or Inguinal Adenopathy Neurological: Cranial nerves II-XII grossly intact, Neuro grossly intact Psych/Mental Status: Normal Affect, Appropriate Current Medications Acetaminophen (Tylenol) 500 - 1,000 mg PO Q8H PRN PRN PRN Reason: PAIN Aspirin (Ecotrin) 81 mg PO DAILYCM [facility] Last Admin: 02/21/18 07:57 Dose: 81 mg Atorvastatin Calcium (Lipitor) 40 mg PO QHS [facility] Last Admin: 02/20/18 21:49 Dose: 40 mg Bisacodyl (Dulcolax) 10 mg PO DAILY [facility] Last Admin: 02/21/18 09:17 Dose: 10 mg Calcium Carbonate (Tums) 1,000 mg PO DAILY [facility] Last Admin: 02/21/18 09:19 Dose: 1,000 mg Cholecalciferol (Vitamin D) 5,000 unit PO DAILY [facility] Last Admin: 02/21/18 09:19 Dose: 5,000 unit Cyclobenzaprine HCl (Flexeril) 10 mg PO TID [facility] Last Admin: 02/21/18 14:27 Dose: 10 mg Docusate Sodium (Colace) 100 mg PO BID PRN PRN Reason: Constipation Enoxaparin Sodium (Lovenox) 40 mg SC DAILY@1000 [facility] Last Admin: 02/21/18 09:18 Dose: 40 mg Famotidine (Pepcid) 20 mg PO DAILY [facility] Last Admin: 02/21/18 09:18 Dose: 20 mg Hydromorphone HCl (Dilaudid Iv) 1 mg IV Q2H PRN PRN PRN Reason: SEVERE PAIN (6-10/10) Last Admin: 02/21/18 14:33 Dose: 1 mg Sodium Chloride () 1,000 mls @ 0 mls/hr IV .Q0M [facility] PRN Reason: KVO Cefazolin Sodium 2 gm/ Sodium (Chloride) 110 mls @ 220 mls/hr IV Q8H [facility] Last Admin: 02/21/18 16:04 Dose: 220 mls/hr Sodium Chloride () 1,000 mls @ 100 mls/hr IV .Q10H [facility] Stop: 02/22/18 07:39 Last Admin: 02/21/18 12:45 Dose: 100 mls/hr Isosorbide Mononitrate (Imdur) 30 mg PO DAILY [facility] Last Admin: 02/21/18 09:18 Dose: 30 mg Levothyroxine Sodium (Synthroid) 75 mcg PO DAILY@0600 [facility] Last Admin: 02/21/18 05:50 Dose: 75 mcg Magnesium Hydroxide (Milk Of Magnesia) 30 ml PO DAILY PRN PRN PRN Reason: Constipation Melatonin (Melatonin) 3 mg PO QHS [facility] Last Admin: 02/20/18 21:49 Dose: 3 mg Metoprolol Tartrate (Lopressor (Beta Edmund)) 25 mg PO BID [facility] Last Admin: 02/21/18 09:18 Dose: 25 mg Mirtazapine (Remeron) 15 mg PO QHS [facility] Last Admin: 02/20/18 21:50 Dose: 15 mg Nutritional Formula (Lactose Free) (Ensure Enlive) 120 ml PO 4X/DAY [facility] Last Admin: 02/21/18 15:36 Dose: Not Given Nystatin (Nystatin) 500,000 unit PO 4X/DAY [facility] Last Admin: 02/21/18 15:36 Dose: Not Given Ondansetron HCl (Zofran Odt) 4 mg PO Q6H PRN PRN PRN Reason: NAUSEA Oxycodone HCl (Oxyir) 5 mg PO Q4H PRN PRN PRN Reason: PAIN Last Admin: 02/21/18 14:27 Dose: 5 mg Oxycodone HCl (Oxycontin) 30 mg PO Q12@0800,2000 [facility] Sodium Chloride () 5 - 30 ml IV UD PRN PRN Reason: SALINE FLUSH Last Admin: 02/21/18 14:33 Dose: 10 ml Medical Necessity - Tobacco Use Smoking Status: Never smoker Assessment/Plan 82y/o female with PMHx of recently diagnosed vertebra osteomyelitis, T8 compression fracture status post kyphoplasty who comes back with intractable back pain. 1. Acute on chronic intractable back pain secondary to new T7 compression fracture in a patient with recent T8 compression fracture status post kyphoplasty, T8 vertebral osteomyelitis, on IV antibiotics, pain control with morphine is not adequate, will switch to IV Dilaudid, will continue to monitor patient's vitals closely. Continue on flexeril. Recommended to have a back brace by Dr. Ruiz. 2. Osteoporosis, severe, not on bisphosphonates, on calcium, vitamin d, needs aggressive treatment in the outpatient 2. MSSA bacteremia with vertebral osteomyelitis in T8, on IV cefazolin via PICC line for a total of 8 weeks, ID following 3. CAD s/p stents, on aspirin, statin, Imdur, beta-edmund 4. Hypertension, controlled, on metoprolol, will continue to monitor. 5. Hypothyroidism, on levothyroxine 6. History of recurrent fractures, secondary to osteoporosis, not on treatment, on calcium and vitamin D 7. DVT PPx - Lovenox SC Spent almost 1 and half hours co-ordinating patient's care, talking to subspecialists- ID, orthopedics, neurosurgery, talking to the family, reviewing records. Code Visit Inpatient E&M: 26504 Subs Hosp L3
--- NOTE | 2018-02-21 16:58 | NURSING ---
This nurse has been talking with Case Management about Dr. Delgadillo's request for a back brace for this pt since approx 1530. [employer] is aware that will send someone out to measure pt for Back brace. Face Sheet and Prescription for Back Brace Faxed to [employer] as requested.
[2018-02-21] MEDS: Alteplase 2 MG/2 ML Vial IV ×2 (18:20→19:34)
[2018-02-21] MEDS: oxyCODONE CR 15 MG Tablet 30 MG PO (20:02)
[2018-02-21] MEDS: MELATONIN 3 MG TABLET PO (21:49)
[2018-02-21] MEDS: Atorvastatin Calcium 40 MG Tablet PO (21:49)
[2018-02-21] MEDS: Mirtazapine 15 MG Tablet PO (21:49)
[2018-02-21] MEDS: Senna/Docusate Sodium 1 Tablet PO (21:49)
[2018-02-22] VITALS (8 sets, daily range): BP systolic 95–126; BP diastolic 56–66; PULSE 63–77; RESP 16–18; TEMP 36.6–36.8; O2SAT 93–98
[2018-02-22] MEDS: Cefazolin 2 GM in 0.9% Normal Saline 100 ML IV ×3 (01:49→15:54)
[2018-02-22] MEDS: 0.9% Normal Saline 1,000 ML 100 ML IV (01:51)
[2018-02-22] MEDS: HYDROmorphone 1 MG/ML Syringe IV (05:37)
[2018-02-22] MEDS: 0.9% NaCl Peripheral Flush Adult/Peds IV ×2 (05:38→15:54)
[2018-02-22] MEDS: Levothyroxine 100 MCG Tablet 75 MCG PO (05:38)
[2018-02-22] MEDS: Aspirin E.C. 81 MG Tablet PO (08:07)
[2018-02-22] MEDS: oxyCODONE CR 15 MG Tablet 30 MG PO ×2 (08:08→20:23)
[2018-02-22] MEDS: Famotidine 20 MG Tablet PO (08:08)
[2018-02-22] MEDS: Bisacodyl 5 MG Tablet 10 MG PO (08:11)
--- NOTE | 2018-02-22 10:23 | NURSING ---
pt. fitted for back brace by [employer] this AM. Notified that patient is to wear back brace at all times as able.
[2018-02-22] MEDS: Metoprolol Tartrate 25 MG Tablet PO ×2 (10:36→20:28)
[2018-02-22] MEDS: Isosorbide Mononitrate 30 MG Tablet PO (10:36)
[2018-02-22] MEDS: Senna/Docusate Sodium 1 Tablet PO ×2 (10:36→20:30)
[2018-02-22] MEDS: Calcium Carbonate 500 MG Tablet 1000 MG PO (10:36)
[2018-02-22] MEDS: NYSTATIN 500,000 UNIT/5 ML UDC 500000 UNIT PO ×4 (10:37→20:30)
[2018-02-22] MEDS: Enoxaparin 40 MG/0.4 ML Syringe SC (10:37)
--- NOTE | 2018-02-22 12:27 | PCM.PN.HOSP ---
Subjective: Patient was seen and examined. Denies any acute pain now. Pain is worse when she moves around in bed. Her pain is 4 out of 10. Had a bowel movement yet. Denied any fever or chills. Objective: Physical exam: General: Alert, Oriented x3, Cooperative, No apparent distress, in pain with movement HEENT: Atraumatic, PERRLA, EOMI, Normocephalic Oral: Moist Mucosa Neck: Supple Lungs: Clear to auscultation, Normal air movement Cardiovascular: Regular rate, Regular Rhythm, Normal S1, Normal S2, No murmurs Abdomen: Bowel Sounds Present, Soft, Non Tender, Non-Distended, No Hepato-splenomegaly Extremities: No edema Skin: No rashes Musculoskeletal: Tenderness - over her thoracic and lumbar spine Lymphatic: No Cervical, Supraclavicular, or Inguinal Adenopathy Neurological: Cranial nerves II-XII grossly intact, Neuro grossly intact Psych/Mental Status: Normal Affect, Appropriate Vitals/I&O's: Vital Signs Temp Pulse Resp BP Pulse Ox 97.8 F 68 16 126/62 H 94 02/22/18 08:00 02/22/18 10:36 02/22/18 08:00 02/22/18 10:35 02/22/18 08:00 Oxygen Flow Rate (L/min) 2 Oxygen Delivery Method Room Air Weight: 59.012 kg Body Mass Index (BMI) 26.2 Intake and Output for Last 24 Hours 02/20/18 02/21/18 02/22/18 23:59 23:59 23:59 Intake Total 2209 / 2209 695 / 695 Output Total 200 / 200 600 / 600 Balance -200 / -200 1609 / 1609 695 / 695 Current Medications Acetaminophen (Tylenol) 500 - 1,000 mg PO Q8H PRN PRN PRN Reason: PAIN [facility] Last Admin: 02/22/18 08:07 Dose: 81 mg Atorvastatin Calcium (Lipitor) 40 mg PO QHS [facility] Last Admin: 02/21/18 21:49 Dose: 40 mg Bisacodyl (Dulcolax) 10 mg PO DAILY [facility] Last Admin: 02/22/18 08:11 Dose: 10 mg Bisacodyl (Dulcolax) 10 mg RECTAL DAILY PRN PRN PRN Reason: Constipation Calcium Carbonate (Tums) 1,000 mg PO DAILY [facility] Last Admin: 02/22/18 10:36 Dose: 1,000 mg Cholecalciferol (Vitamin D) 5,000 unit PO DAILY [facility] Last Admin: 02/22/18 08:10 Dose: 5,000 unit Cyclobenzaprine HCl (Flexeril) 10 mg PO TID [facility] Last Admin: 02/22/18 05:38 Dose: 10 mg Docusate Sodium (Colace) 100 mg PO BID PRN PRN Reason: Constipation Enoxaparin Sodium (Lovenox) 40 mg SC DAILY@1000 [facility] Last Admin: 02/22/18 10:37 Dose: 40 mg Famotidine (Pepcid) 20 mg PO DAILY [facility] Last Admin: 02/22/18 08:08 Dose: 20 mg Hydromorphone HCl (Dilaudid Iv) 1 mg IV Q2H PRN PRN PRN Reason: SEVERE PAIN (6-10/10) Last Admin: 02/22/18 05:37 Dose: 1 mg Sodium Chloride () 1,000 mls @ 0 mls/hr IV .Q0M [facility] PRN Reason: KVO Cefazolin Sodium 2 gm/ Sodium (Chloride) 110 mls @ 220 mls/hr IV Q8H [facility] Last Admin: 02/22/18 08:07 Dose: 220 mls/hr Isosorbide Mononitrate (Imdur) 30 mg PO DAILY [facility] Last Admin: 02/22/18 10:36 Dose: 30 mg Levothyroxine Sodium (Synthroid) 75 mcg PO DAILY@0600 [facility] Last Admin: 02/22/18 05:38 Dose: 75 mcg Magnesium Hydroxide (Milk Of Magnesia) 30 ml PO DAILY PRN PRN PRN Reason: Constipation Melatonin (Melatonin) 3 mg PO QHS [facility] Last Admin: 02/21/18 21:49 Dose: 3 mg Metoprolol Tartrate (Lopressor (Beta Edmund)) 25 mg PO BID [facility] Last Admin: 02/22/18 10:36 Dose: 25 mg Mirtazapine (Remeron) 15 mg PO QHS [facility] Last Admin: 02/21/18 21:49 Dose: 15 mg Nutritional Formula (Lactose Free) (Ensure Enlive) 120 ml PO 4X/DAY [facility] Last Admin: 02/22/18 10:36 Dose: 120 ml Nystatin (Nystatin) 500,000 unit PO 4X/DAY [facility] Last Admin: 02/22/18 10:37 Dose: 500,000 unit Ondansetron HCl (Zofran Odt) 4 mg PO Q6H PRN PRN PRN Reason: NAUSEA Oxycodone HCl (Oxyir) 5 mg PO Q4H PRN PRN PRN Reason: PAIN Last Admin: 02/21/18 14:27 Dose: 5 mg Oxycodone HCl (Oxycontin) 30 mg PO Q12@0800,2000 [facility] Last Admin: 02/22/18 08:08 Dose: 30 mg Senna/Docusate Sodium (Senokot-S, Laura-Colace) 1 tablet PO BID [facility] Last Admin: 02/22/18 10:36 Dose: 1 tablet Sodium Chloride () 5 - 30 ml IV UD PRN PRN Reason: SALINE FLUSH Last Admin: 02/22/18 05:38 Dose: 10 ml Medical Necessity - Tobacco Use Smoking Status: Never smoker Assessment/Plan 82y/o female with PMHx of recently diagnosed vertebra osteomyelitis, T8 compression fracture status post kyphoplasty who comes back with intractable back pain. 1. Acute on chronic intractable back pain secondary to new T7 compression fracture in a patient with recent T8 compression fracture status post kyphoplasty, T8 vertebral osteomyelitis, pain is relatively controlled now. on oxycontin 30mg po bid, IV Dilaudid prn, flexeril, Recommended to have a back brace, will continue to follow patient. 2. Osteoporosis, severe, not on bisphosphonates, on calcium, vitamin d, needs aggressive treatment in the outpatient 2. MSSA bacteremia with vertebral osteomyelitis in T8, on IV cefazolin via PICC line for a total of 8 weeks, ID following 3. CAD s/p stents, on aspirin, statin, Imdur, beta-edmund 4. Hypertension, controlled, on metoprolol, will continue to monitor. 5. Hypothyroidism, on levothyroxine 6. History of recurrent fractures, secondary to osteoporosis, not on treatment, on calcium and vitamin D 7. DVT PPx - Lovenox SC Code Visit Inpatient E&M: 59059 Subs Hosp L3
--- NOTE | 2018-02-22 12:37 | PN_ITS ---
Subjective: Patient was seen and examined. Denies any acute pain now. Pain is worse when she moves around in bed. Her pain is 4 out of 10. Had a bowel movement yet. Denied any fever or chills. Objective: Physical exam: General: Alert, Oriented x3, Cooperative, No apparent distress, in pain with movement HEENT: Atraumatic, PERRLA, EOMI, Normocephalic Oral: Moist Mucosa Neck: Supple Lungs: Clear to auscultation, Normal air movement Cardiovascular: Regular rate, Regular Rhythm, Normal S1, Normal S2, No murmurs Abdomen: Bowel Sounds Present, Soft, Non Tender, Non-Distended, No Hepato- splenomegaly Extremities: No edema Skin: No rashes Musculoskeletal: Tenderness - over her thoracic and lumbar spine Lymphatic: No Cervical, Supraclavicular, or Inguinal Adenopathy Neurological: Cranial nerves II-XII grossly intact, Neuro grossly intact Psych/Mental Status: Normal Affect, Appropriate Vitals/I&O's: Vital Signs Temp Pulse Resp BP Pulse Ox 97.8 F 68 16 126/62 H 94 02/22/18 08:00 02/22/18 10:36 02/22/18 08:00 02/22/18 10:35 02/22/18 08:00 Oxygen Flow Rate (L/min) 2 Oxygen Delivery Method Room Air Weight: 59.012 kg Body Mass Index (BMI) 26.2 Intake and Output for Last 24 Hours 02/20/18 02/21/18 02/22/18 23:59 23:59 23:59 Intake Total 2209 / 2209 695 / 695 Output Total 200 / 200 600 / 600 Balance -200 / -200 1609 / 1609 695 / 695 Current Medications Acetaminophen (Tylenol) 500 - 1,000 mg PO Q8H PRN PRN PRN Reason: PAIN [facility] Last Admin: 02/22/18 08:07 Dose: 81 mg Atorvastatin Calcium (Lipitor) 40 mg PO QHS [facility] Last Admin: 02/21/18 21:49 Dose: 40 mg Bisacodyl (Dulcolax) 10 mg PO DAILY [facility] Last Admin: 02/22/18 08:11 Dose: 10 mg Bisacodyl (Dulcolax) 10 mg RECTAL DAILY PRN PRN PRN Reason: Constipation Calcium Carbonate (Tums) 1,000 mg PO DAILY [facility] Last Admin: 02/22/18 10:36 Dose: 1,000 mg Cholecalciferol (Vitamin D) 5,000 unit PO DAILY [facility] Last Admin: 02/22/18 08:10 Dose: 5,000 unit Cyclobenzaprine HCl (Flexeril) 10 mg PO TID [facility] Last Admin: 02/22/18 05:38 Dose: 10 mg Docusate Sodium (Colace) 100 mg PO BID PRN PRN Reason: Constipation Enoxaparin Sodium (Lovenox) 40 mg SC DAILY@1000 [facility] Last Admin: 02/22/18 10:37 Dose: 40 mg Famotidine (Pepcid) 20 mg PO DAILY [facility] Last Admin: 02/22/18 08:08 Dose: 20 mg Hydromorphone HCl (Dilaudid Iv) 1 mg IV Q2H PRN PRN PRN Reason: SEVERE PAIN (6-10/10) Last Admin: 02/22/18 05:37 Dose: 1 mg Sodium Chloride () 1,000 mls @ 0 mls/hr IV .Q0M [facility] PRN Reason: KVO Cefazolin Sodium 2 gm/ Sodium (Chloride) 110 mls @ 220 mls/hr IV Q8H [facility] Last Admin: 02/22/18 08:07 Dose: 220 mls/hr Isosorbide Mononitrate (Imdur) 30 mg PO DAILY [facility] Last Admin: 02/22/18 10:36 Dose: 30 mg Levothyroxine Sodium (Synthroid) 75 mcg PO DAILY@0600 [facility] Last Admin: 02/22/18 05:38 Dose: 75 mcg Magnesium Hydroxide (Milk Of Magnesia) 30 ml PO DAILY PRN PRN PRN Reason: Constipation Melatonin (Melatonin) 3 mg PO QHS [facility] Last Admin: 02/21/18 21:49 Dose: 3 mg Metoprolol Tartrate (Lopressor (Beta Edmund)) 25 mg PO BID [facility] Last Admin: 02/22/18 10:36 Dose: 25 mg Mirtazapine (Remeron) 15 mg PO QHS [facility] Last Admin: 02/21/18 21:49 Dose: 15 mg Nutritional Formula (Lactose Free) (Ensure Enlive) 120 ml PO 4X/DAY [facility] Last Admin: 02/22/18 10:36 Dose: 120 ml Nystatin (Nystatin) 500,000 unit PO 4X/DAY [facility] Last Admin: 02/22/18 10:37 Dose: 500,000 unit Ondansetron HCl (Zofran Odt) 4 mg PO Q6H PRN PRN PRN Reason: NAUSEA Oxycodone HCl (Oxyir) 5 mg PO Q4H PRN PRN PRN Reason: PAIN Last Admin: 02/21/18 14:27 Dose: 5 mg Oxycodone HCl (Oxycontin) 30 mg PO Q12@0800,2000 [facility] Last Admin: 02/22/18 08:08 Dose: 30 mg Senna/Docusate Sodium (Senokot-S, Laura-Colace) 1 tablet PO BID [facility] Last Admin: 02/22/18 10:36 Dose: 1 tablet Sodium Chloride () 5 - 30 ml IV UD PRN PRN Reason: SALINE FLUSH Last Admin: 02/22/18 05:38 Dose: 10 ml Medical Necessity - Tobacco Use Smoking Status: Never smoker Assessment/Plan 82y/o female with PMHx of recently diagnosed vertebra osteomyelitis, T8 compression fracture status post kyphoplasty who comes back with intractable back pain. 1. Acute on chronic intractable back pain secondary to new T7 compression fracture in a patient with recent T8 compression fracture status post kyphoplasty, T8 vertebral osteomyelitis, pain is relatively controlled now. on oxycontin 30mg po bid, IV Dilaudid prn, flexeril, Recommended to have a back brace, will continue to follow patient. 2. Osteoporosis, severe, not on bisphosphonates, on calcium, vitamin d, needs aggressive treatment in the outpatient 2. MSSA bacteremia with vertebral osteomyelitis in T8, on IV cefazolin via PICC line for a total of 8 weeks, ID following 3. CAD s/p stents, on aspirin, statin, Imdur, beta-edmund 4. Hypertension, controlled, on metoprolol, will continue to monitor. 5. Hypothyroidism, on levothyroxine 6. History of recurrent fractures, secondary to osteoporosis, not on treatment, on calcium and vitamin D 7. DVT PPx - Lovenox SC Code Visit Inpatient E&M: 94591 Subs Hosp L3
[2018-02-22] MEDS: Mirtazapine 15 MG Tablet PO (20:29)
[2018-02-22] MEDS: Atorvastatin Calcium 40 MG Tablet PO (20:29)
[2018-02-22] MEDS: MELATONIN 3 MG TABLET PO (20:31)
[2018-02-23] MEDS: 0.9% NaCl Peripheral Flush Adult/Peds IV ×3 (00:15→13:03)
[2018-02-23] MEDS: Cefazolin 2 GM in 0.9% Normal Saline 100 ML IV ×2 (00:15→08:29)
[2018-02-23] MEDS: Acetaminophen 500 MG Tablet PO ×2 (00:26→13:07)
[2018-02-23 02:20] VITALS: BP 116/55; PULSE 68; RESP 18; TEMP 36.9; O2SAT 96
[2018-02-23 02:31] VITALS: PULSE 68; RESP 18; O2SAT 96
[2018-02-23 06:33] LABS: Absolute Lymphocyte Count 1.57 X10^3/ul (0.83-4.51); Absolute Neutrophil Count 2.6 X10^3/uL (2.0-7.7); Basophil# 0.02 X10^3/uL; Basophil% 0.4 % (0-1); Eosinophil# 0.31 X10^3/uL; Eosinophils% 5.9 % (0-5); Hematocrit 31.1 % (37-47); Hemoglobin 9.7 g/dl (12.0-15.0); Lymphocyte # 1.57 X10^3/ul (4.0); Lymphocyte % 29.7 % (19-41); Mean Corp Hgb Conc 31.2 g/gl (32-36); Mean Corpuscular Hgb 31.8 pg (27.0-32.0); Mean Platelet Vol. 10.1 fl (6.2-12.0); Monocyte# 0.73 X10^3/uL; Monocyte% 13.8 % (0-10); Neutrophil # 2.56 X10^3/uL (2.7-7.7); Neutrophil % 48.3 % (47-70); Platelet Count 275 K/mm3 (150-450); RBC Distribution Width CV 13.8 % (11.6-14.6); RBC Distribution Width SD 51.7 fl (35.1-43.9); Red Blood Count 3.05 M/mm3 (4.2-5.4); White Blood Count 5.3 K/mm3 (4.4-11.0)
[2018-02-23] MEDS: Levothyroxine 100 MCG Tablet 75 MCG PO (06:38)
[2018-02-23 06:46] LABS: POSITIVE COUNT NO; POSITIVE DIFFERENTIAL NO; POSITIVE MORPHOLOGY NO
[2018-02-23 07:05] LABS: Anion Gap 7 (5-15); BUN 20 mg/dL (7-18); BUN/Creat Ratio 22.2 RATIO (10-20); Calcium,Total 8.8 mg/dL (8.5-10.1); Chloride 105 mmol/L (98-107); EST Glomerular Filtration Rate 64 mL/min (>60); Est Glom Filt Rate - Afr Amer 77 mL/min (>60); Glucose 84 mg/dL (74-106); Potassium 3.5 mmol/L (3.5-5.1); Sodium Level 140 mmol/L (136-145)
[2018-02-23 08:19] VITALS: BP 156/73; PULSE 67; RESP 16; TEMP 36.2; O2SAT 94
[2018-02-23] MEDS: Docusate Sodium 100 MG Capsule PO (08:28)
[2018-02-23] MEDS: Magnesium Hydroxide 30 ML UDC PO (08:28)
[2018-02-23] MEDS: 0.9% NaCl IVPB Med Flush (250 mL) 15 ML IV (08:29)
[2018-02-23] MEDS: oxyCODONE CR 15 MG Tablet 30 MG PO (08:29)
[2018-02-23 08:30] VITALS: PULSE 67
[2018-02-23] MEDS: Metoprolol Tartrate 25 MG Tablet PO (08:30)
[2018-02-23] MEDS: Bisacodyl 5 MG Tablet 10 MG PO (08:30)
[2018-02-23] MEDS: Isosorbide Mononitrate 30 MG Tablet PO (08:31)
[2018-02-23] MEDS: Aspirin E.C. 81 MG Tablet PO (08:31)
[2018-02-23] MEDS: Enoxaparin 40 MG/0.4 ML Syringe SC (08:31)
[2018-02-23] MEDS: Calcium Carbonate 500 MG Tablet 1000 MG PO (08:31)
[2018-02-23] MEDS: NYSTATIN 500,000 UNIT/5 ML UDC 500000 UNIT PO ×2 (08:32→13:03)
[2018-02-23] MEDS: Famotidine 20 MG Tablet PO (08:32)
[2018-02-23] MEDS: Senna/Docusate Sodium 1 Tablet PO (08:32)
--- NOTE | 2018-02-23 09:29 | NURSING ---
spoke with daughter Joelle Grace at number listed on pt chart- updated per md that pt may be [facility] to the [facility]. Joelle states she will not be in until later this afternoon due to she has a birthday libertarian to attend. Per Green sheet on the chart, said nurse phoned Jocelin [phone] and left voice mail regarding possible transfer back to [facility] today.
--- NOTE | 2018-02-23 10:04 | NURSING ---
daughter phoned in, requesting that dr. cardoso call her regarding discharge plans- informed daughter will send text to md informing her of pt daughter request. text to dr cardoso asking her to phone pt daughter.
--- NOTE | 2018-02-23 11:15 | PCM.TXEXTCAR ---
- Diet 02/20/18 14:06 Diet: Regular Diet Food consistency:: Regular Liquid Consistency:: Regular/Thin Tube Feed: Regular diet - Routine Orders/Code Status O2 Frequency: PRN Keep PO Greater than or Equal to (%): 94 Routine Lab Work: CBC - in 1 week, BMP - in 1 week - Wound(s) upper back Wound Type: Puncture - Therapies Weight Bearing: Weight bearing as tolerated Physical Therapy: Eval and Treat Occupational Therapy: Eval and Treat - Allergies/Procedures Done in Hospital Allergies/Adverse Reactions: Allergies No Known Allergies Allergy (Verified 02/20/18 11:09) Procedures: None - Type of Care/Length of Stay Estimated LOS: Convalescent Care Less Than 30 days Type of Care Needed: Skilled Rehab Potential: Fair Prognosis: Fair - Additional Orders/Day of Discharge Additional Orders: Palliative care consult in the [facility] facility. Day of Discharge: 02/23/18 - Dietary and Speech Recommendations Dietitian Recommendations/Changes: Suggest continue liberalized Regular diet r/t unintentional wt loss. Will provide Ensure Enlive on medpass for additional nutrition. Will provide Magic Cup BID with meals for additional nutrition if consumed. - Follow Up Care Primary Care Physician: Jon Quiroz [Primary Care Provider] - Please follow up with your Primary Care Physician in: within 2 weeks of discharge Please Follow Up With: Kalin Cabrera MD When: in 2 weeks
--- NOTE | 2018-02-23 11:18 | TREXTCAR_ITS ---
- Diet 02/20/18 14:06 Diet: Regular Diet Food consistency:: Regular Liquid Consistency:: Regular/Thin Tube Feed: Regular diet - Routine Orders/Code Status O2 Frequency: PRN Keep PO Greater than or Equal to (%): 94 Routine Lab Work: CBC - in 1 week, BMP - in 1 week - Wound(s) upper back Wound Type: Puncture - Therapies Weight Bearing: Weight bearing as tolerated Physical Therapy: Eval and Treat Occupational Therapy: Eval and Treat - Allergies/Procedures Done in Hospital Allergies/Adverse Reactions: Allergies No Known Allergies Allergy (Verified 02/20/18 11:09) Procedures: None - Type of Care/Length of Stay Estimated LOS: Convalescent Care Less Than 30 days Type of Care Needed: Skilled Rehab Potential: Fair Prognosis: Fair - Additional Orders/Day of Discharge Additional Orders: Palliative care consult in the alf facility. Day of Discharge: 02/23/18 - Dietary and Speech Recommendations Dietitian Recommendations/Changes: Suggest continue liberalized Regular diet r/ t unintentional wt loss. Will provide Ensure Enlive on medpass for additional nutrition. Will provide Magic Cup BID with meals for additional nutrition if consumed. - Follow Up Care Primary Care Physician: Jon Quiroz [Primary Care Provider] - Please follow up with your Primary Care Physician in: within 2 weeks of discharge Please Follow Up With: Kalin Cabrera MD When: in 2 weeks
--- NOTE | 2018-02-23 11:19 | DS.PCM_ITS ---
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 No acute airspace disease. Electronically Signed: Jimbo Orr DO at 12:51 EDT Tel , Service support , Thoracic Spine X-Ray 02/20/18 11:49 IMPRESSION: Moderate to severe degenerative changes of the thoracic spine Electronically Signed: Jimbo Orr DO at 12:50 EDT Tel , Service support , Thoracic Spine CT 02/21/18 11:34 IMPRESSION: Prior kyphoplasty at T8 with vertebral plana. Moderate compression fracture of T7, demonstrates progression as compared to most recent prior MRI. Remainder as above Electronically Signed: Jimbo Orr DO at 12:59 EDT Tel , Service support , Lumbar Spine CT 02/21/18 11:35 IMPRESSION: No acute fracture or listhesis. Degenerative listhesis at L3-4. Prominent disc bulge causing severe central canal stenosis at L4-5. Remaining degenerative changes as above Electronically Signed: Jimbo Orr DO at 12:54 EDT Tel , Service support , ID Operations: None Procedures: None Summary of Care Provided: 82y/o female with PMHx of recently diagnosed vertebra osteomyelitis, T8 compression fracture status post kyphoplasty who comes back with intractable back pain. 1. Acute on chronic intractable back pain secondary to new T7 compression fracture in a patient with recent T8 compression fracture status post kyphoplasty, T8 vertebral osteomyelitis, not a surgical candidate for any procedure, discussed with Dr. Seay and Dr. Goode who are out of town. Managed on oxycontin 30mg po bid, IV Dilaudid prn, flexeril, back brace. 2. Osteoporosis, severe, not on bisphosphonates, history of recurrent fractures , on calcium, vitamin d, needs aggressive treatment in the outpatient 3. MSSA bacteremia with vertebral osteomyelitis in T8, on IV cefazolin via PICC line for a total of 8 weeks, ID following 4. CAD s/p stents, on aspirin, statin, Imdur, beta-rafael 5. Hypertension, controlled, on metoprolol. 6. Hypothyroidism, on levothyroxine Discharge Diet: No Restrictions Discharge Activity: Return to Normal Activity Home Medications: Medications to take at Discharge Atorvastatin Calcium [Lipitor] 40 mg PO QHS 12/19/13 Isosorbide Mononitrate [Imdur] 30 mg PO DAILY 12/19/13 Levothyroxine [Synthroid] 75 mcg PO DAILY 12/19/13 Metoprolol Tartrate [Lopressor (beta rafael)] 25 mg PO BID #60 tablet 01/20/16 Aspirin 81 mg PO DAILY 03/07/17 Calcium Carbonate [Calcium] 1,200 mg PO DAILY 02/02/18 Acetaminophen [Tylenol] 1,000 mg PO Q8H PRN PRN 02/20/18 Bisacodyl 10 mg PO DAILY 02/20/18 Bisacodyl [Dulcolax] 10 mg RECTAL DAILY PRN PRN 02/20/18 Cefazolin Sodium/D5w [Cefazolin 2 Gram/100 ml-D5w] 2 gm IV TID 02/20/18 Cholecalciferol (Vitamin D3) [Vitamin D3] 5,000 unit PO DAILY 02/20/18 Cyclobenzaprine [Flexeril] 10 mg PO TID 02/20/18 Docusate Sodium [Dok] 100 mg PO BID PRN 02/20/18 Ensure Enlive 237 ml PO TID 02/20/18 Famotidine [Pepcid] 20 mg PO DAILY 02/20/18 Melatonin 3 mg PO QHS 02/20/18 Mirtazapine 15 mg PO QHS 02/20/18 Nystatin 5 ml PO 4X/DAY 02/20/18 Ondansetron [Zofran Odt] 4 mg PO Q6H PRN PRN 02/20/18 Sennosides/Docusate Sodium [Senna-Docusate Sodium Tablet] 1 each PO BID HYDROmorphone tablet [Dilaudid] 1 mg PO Q3H PRN PRN 1 Days #5 tab 02/23/18 Oxycodone CR [Oxycontin] 30 mg PO Q12@0800,1999 #20 tab 02/23/18 Following Prescrptions Were Given to Patient: HYDROmorphone tablet [Dilaudid] 1 mg PO Q3H PRN PRN 1 Days #5 tab PRN Reason: Severe Pain (6-10/10) Oxycodone CR [Oxycontin] 30 mg PO Q12@0800,1999 #20 tab Primary Care Physician: Jon Quiroz [Primary Care Provider] - Please follow up with your Primary Care Physician in: within 2 weeks of discharge Please Follow Up With: Kalin Cabrera MD When: in 2 weeks Disposition: Senior Living facility Minutes spent on discharge:: 25 Patient Condition:: Stable Medical Necessity - Tobacco Use Smoking Status: Never smoker Meaningful Use Info Meaningful Use Diagnoses (Choose all that apply): None applicable Code Visit Inpatient E&M: 80791 Disch Hosp
--- NOTE | 2018-02-23 11:46 | NURSING ---
attemptd to phone Jocelin again as per green sheet- voice mail message left asking her to phone ms2 with number to floor provided.
--- NOTE | 2018-02-23 11:51 | NURSING ---
recieved phone call from female stating she is Jocelin, states she is working on getting RN coverage for pt antibiotics and phone back with further insight.
--- NOTE | 2018-02-23 13:00 | NURSING ---
phoned pt daughter Joelle and updated on status and that transportation picket [employer] will be around 1330.
[2018-02-23 13:15] VITALS: BP 112/59; PULSE 88; RESP 18; TEMP 36.5; O2SAT 100
== END 2018-02-23 13:40 | disposition skilled nursing facility (03) | DRG 543 ==
LOC: ED 13:56 → MS2 14:10
PROVIDERS: Admitting Provider Internal Medicine; Emergency Provider Emergency Medicine; Visit Provider Internal Medicine
DX: M48.54XA Collapsed vertebra, not elsewhere classified, thoracic region, initial encounter for fracture (principal); M46.24 Osteomyelitis of vertebra, thoracic region; R78.81 Bacteremia; B95.61 Methicillin susceptible Staphylococcus aureus infection as the cause of diseases classified elsewhere; E03.9 Hypothyroidism, unspecified; I10 Essential (primary) hypertension; E78.5 Hyperlipidemia, unspecified; Z96.652 Presence of left artificial knee joint; I25.10 Atherosclerotic heart disease of native coronary artery without angina pectoris; Z95.5 Presence of coronary angioplasty implant and graft; K21.9 Gastro-esophageal reflux disease without esophagitis; M48.061 Spinal stenosis, lumbar region without neurogenic claudication; M81.0 Age-related osteoporosis without current pathological fracture; Z98.890 Other specified postprocedural states; M19.90 Unspecified osteoarthritis, unspecified site; I44.0 Atrioventricular block, first degree
CPT/HCPCS: 36415; 71045; 72070; 72129; 72132; 80048; 84484; 85025; 85652; 86140; 87040; 93005; 97802; 99284; J2997; J7030; J7050; A4216; J2405